=== PATIENT | male | born 1950 ===

== ENCOUNTER 2021-04-07 10:07 | Inpatient (IN) ==
[2021-04-07] MEDS ORDERED: ONDANSETRON INJ 2 MG/ML 2 ML VIAL IV STA (10:31)
[2021-04-07] MEDS ORDERED: MoRPHine SULFATE 4 MG/ML 1 ML CARP\\VIAL IV STA (10:31)
--- NOTE | 2021-04-07 10:40 | Emergency Department Note ---
History of Present Illness General Chief complaint: Dehydration Stated complaint: DEHYDRATION,DIARRHEA,VOMITING,LARGE MASS RT SIDE Time Seen by Provider: 04/07/21 10:15 Source: patient History of Present Illness Provider complaint: Chest pain Onset (ago): month(s) 4 Location: chest Radiation: other (Both shoulders) Pain Consistency: + constant Maximum Pain Intensity: 10 Quality: + other (Throbbing) Relieved By: + none Exacerbated By: + other (Palpation) Associated symptoms: + nausea/vomiting and + shortness of breath; no cough and no fever/chills This is a 70-year-old male with a prior history of throat cancer 15 years ago presenting with chest pain. He describes the pain as a throbbing sensation in the right side of his chest rating to both shoulders. He states that he has had a mass develop on his chest wall 4 months ago and that is when his pain started. He started getting short of breath 3 months ago. He saw his doctor who scheduled him for a CAT scan next week. He has not had any additional work-up. He rates his pain a 10 out of 10 in severity. He states is worse when he touches it. He states for the past week he has not been able to eat food. He states that whenever he tries to eat he throws up. He does state that he only eats pured foods since his throat cancer 15 years ago. He denies any fever, cough or cold symptoms, abdominal pain, diarrhea or urinary symptoms. He has not had the Covid vaccine. Home Medications Medication Instructions Recorded Confirmed Type lisinopril 10 mg PO QAM 04/07/21 04/07/21 History Allergies Allergy/AdvReac Type Severity Reaction Status Date / Time No Known Allergies Allergy Unverified 04/07/21 13:59 Past Med/Surg History Medical History Throat cancer Social History Smoking Status: Never smoker Preferred Language: Cook Islander Feels Safe at Home: Yes Review of Systems See HPI for pertinent positives & negatives. and A total of 10 systems reviewed and were otherwise negative Physical Exam Vital Signs Vital Signs - 24 hr 04/07/21 10:08 04/07/21 12:00 Temperature 36.8 C Temperature Source Temporal Artery Scan Pulse Rate 90 Pulse Rate [Right Finger] 76 Respiratory Rate 18 18 Blood Pressure 136/87 Blood Pressure [Right Arm] 124/70 Blood Pressure Mean 103 Blood Pressure Mean [Right Arm] 88 Blood Pressure Position Sitting Pulse Oximetry 100 100 Oxygen Delivery Method Room Air Room Air Sepsis Recent Fever Within 48 Hours No Sepsis New/Unexplained Change in Mental Status No Sepsis Action Taken by Nursing No Action Required Constitutional: Vital signs reviewed. Eyes: Pupils are equal round reactive to light. Conjunctiva are noninjected. ENT: Pharynx is clear without erythema or exudate. Mucous membranes are moist. Neck supple without meningeal signs. Respiratory: Clear to auscultation bilaterally. Breath sounds are equal bilaterally. Cardiovascular: Regular rate and rhythm. No rubs or gallops. GI: Soft, nondistended and nontender. Bowel sounds are present. Musculoskeletal: No peripheral edema. No lower extremity tenderness. [place]-siz ed mass over the right superior chest wall with tenderness to palpation. No fluctuance. Integumentary: No cyanosis. or jaundice. Neurological: The patient is awake and alert. No focal deficits. Hypophonic. Psychiatric: Normal affect. Not anxious appearing. Course Administered Medications Sodium Chloride (Nss) 500 mls @ 125 mls/hr IV .Q4H CESILIA Stop: 05/07/21 10:44 Last Admin: 04/07/21 11:21 Dose: 125 mls/hr Documented by: [id number] Discontinued Medications Lorazepam (Ativan) 0.5 mg in 1 mls @ 1 mls/min IV NOW STA Stop: 04/07/21 11:49 Last Admin: 04/07/21 12:01 Dose: 1 mls/min Documented by: [id number] Morphine Sulfate (Morphine Sulfate 4 Mg/Ml 1 Ml Carp\Vial) 4 mg IV NOW STA Stop: 04/07/21 10:32 Last Admin: 04/07/21 11:21 Dose: 4 mg Documented by: [id number] Ondansetron HCl (Ondansetron Inj 2 Mg/Ml 2 Ml Vial) 4 mg IV NOW STA Stop: 04/07/21 10:32 Last Admin: 04/07/21 11:21 Dose: 4 mg Documented by: [id number] Medical Decision Making Differential Diagnosis Cancer, metastatic disease, mediastinitis, pulmonary embolism, bowel obstruction, dehydration Medical Records Attestation: I reviewed the patient's medical records. I did perform a limited focused review of portions of the patient's old chart on the electronic medical record. The patient has had no recent pertinent visits to this hospital. Home Medications Current Medication List: was personally reviewed by me Laboratory Data Attestation: I reviewed the patient's lab results. Result diagrams: 04/07/21 10:50 04/07/21 10:50 Lab Results 04/07/21 04/07/21 04/07/21 Range/Units 10:50 10:50 13:40 WBC 10.49 (4.8-10.8) K/uL RBC 3.52 L (4.7-6.1) M/uL Hgb 11.6 L (14.0-18.0) g/dL Hct 34.8 L (42-52) % MCV 98.9 (80-100) fL MCH 33.0 (25-34) pg MCHC 33.3 (32-36) g/dL RDW Std Deviation 48.4 H (36.4-46.3) fL RDW Coeff of [place] 13.6 (11.5-14.5) % Plt Count 344 (130-400) K/uL MPV 9.5 (7.4-10.4) fL Immature Gran % (Auto) 0.1 % Neut % (Auto) 89.4 % Lymph % (Auto) 6.1 % [place]ander % (Auto) 4.4 % Eos % (Auto) 0.0 % Baso % (Auto) 0.0 % Neut # (Auto) 9.38 H (1.4-6.5) K/uL Lymph # (Auto) 0.64 L (1.2-3.4) K/uL Lander # (Auto) 0.46 (0.11-0.59) K/uL Eos # (Auto) 0.00 (0-0.5) K/uL Baso # (Auto) 0.00 (0-0.2) K/uL Immature Gran # (Auto) 0.01 (0.00-0.02) K/uL Sodium 140 (136-145) mmol/L Potassium 4.0 (3.5-5.1) mmol/L Chloride 102 (98-107) mmol/L Carbon Dioxide 30 (21-32) mmol/L Anion Gap 8.0 (3-11) BUN 24 H (7-18) mg/dl Creatinine 1.15 (0.6-1.4) mg/dl Est Cr Clr Drug Dosing Not Reportable Est GFR ( Amer) 75.4 ml/min Est GFR (Non-Af Amer) 65.0 ml/min BUN/Creatinine Ratio 21.1 H (10-20) Glucose 115 H (70-99) mg/dl Calcium 11.4 H (8.5-10.1) mg/dl Total Bilirubin 0.7 (0.2-1) mg/dl AST 21 (15-37) U/L ALT 10 L (12-78) U/L Alkaline Phosphatase 109 (45-117) U/L Troponin I < 0.015 (0-0.045) ng/ml Total Protein 7.5 (6.4-8.2) gm/dl Albumin 3.3 L (3.4-5.0) gm/dl Globulin 4.2 H (2.5-4.0) gm/dl Albumin/Globulin Ratio 0.8 L (0.9-2) Lipase 146 (73-393) U/L COVID-19 Eval Order Covid19 at [facility] Imaging Data Radiologist's Impression: Abdomen/Pelvis CT 04/07/21 10:31 CT OF THE ABDOMEN AND PELVIS WITHOUT CONTRAST CLINICAL HISTORY: Vomiting. Evaluate for obstruction. COMPARISON STUDY: No previous studies for comparison. TECHNIQUE: Axial images of the abdomen and pelvis were obtained without IV contrast. Images were reviewed in the axial, sagittal, and coronal planes. Automated exposure control was utilized for the study. A dose lowering technique was utilized adhering to the principles of ALARA. FINDINGS: Please note that the chest CT will be reported separately. A small left pleural effusion is noted. A small pericardial effusion is also present. Gastrostomy tube is in place. No pneumatosis, free air or portal venous gas is present. Evaluation of the abdomen and pelvis is significantly compromised given lack of contrast and posterior intra-abdominal fat. There is no evidence for a bowel obstruction. There is a large amount stool within the colon and rectum. Unenhanced images of the liver, spleen, adrenal glands, kidneys and pancreas are grossly unremarkable. There is no hydronephrosis. No lymphadenopathy is identified although sensitivity is diminished. Bladder is distended. IMPRESSION: 1. Exam significantly compromised given lack of contrast and paucity of intra- abdominal fat. 2. No bowel obstruction. Large amount of stool within the colon and rectum. 3. Small pericardial effusion. Small left pleural effusion. ACT 112: Negative or not required by law. Electronically signed by: Gurinder Velez M.D. 04/07/2021 12:[address] 04/07/21 10:31 CT OF THE CHEST WITHOUT IV CONTRAST CLINICAL HISTORY: Chest pain. COMPARISON STUDY: No previous studies for comparison. CT DOSE: 607.67 mGy.cm TECHNIQUE: Axial images of the chest were obtained without IV contrast. Images were reviewed in the axial, sagittal, and coronal planes. IV contrast was not administered for this examination. Automated exposure control was utilized for the study. A dose lowering technique was utilized adhering to the principles of ALARA. FINDINGS: Evaluation of the chest is suboptimal on this unenhanced exam. Note is made of a large infiltrative destructive mass centered within the anterior right upper chest wall. This results in erosion of the manubrium, undersurface of the proximal right clavicle, the anterior right second rib as well as the ant erior right first rib. This contains multiple radiodensities. This extends into the mediastinum as well as the right upper lobe. There is right upper lobe volume loss. This mass measures approximately 9.8 x 6.5 x 6 cm. There may be trace gas within the SVC. Size of the heart is normal. There is no pneumothorax. A small left pleural effusion is noted. Note is made of a spiculated 1.4 x 1.1 cm right middle lobe nodule. There is also an irregular 3.5 x 3.1 cm left upper lobe mass which extends to the pleura. This contains calcifications. There are tiny nodules within the right middle lobe as well as the left lower lobe. The abdomen and pelvis will be reported separately. IMPRESSION: 1. Large destructive infiltrative mass centered within the anterior right upper chest wall which results in erosion of the manubrium, undersurface of the pro ximal right clavicle and the anterior right first and second ribs. This extends into the right upper lobe and invades the mediastinum. This is consistent with a neoplasm and may reflect a lung malignancy invading the chest wall. A chondrosarcoma is also within the differential given the CT appearance. Tissue sampling is recommended. 2. Irregular 3.5 x 3.1 cm left upper lobe mass. The appearance favors a primary lung malignancy although metastatic disease could appear similar. 3. Spiculated 1.4 cm right middle lobe nodule also consistent with a neoplastic process. 4. Small left pleural effusion. 5. Bilateral upper lobe volume loss. ACT 112: Negative or not required by law. Electronically signed by: Gurinder Velez M.D. 04/07/2021 12:36 PM ECG Data Indication: + chest pain Rate (beats per minute): 83 Rhythm: + normal sinus ECG ST segments: no ST elevation ECG Findings: no PVCs MDM Narrative I did evaluate the patient as noted above. The patient is presenting with pain to his chest for 4 months with shortness of breath and a growing mass to his chest wall. He also states that he has not been able to eat for the past week due to vomiting. He has lost a significant amount of weight. Family is very cachectic and in obvious masses on his right chest wall. IV access was established. I did treat him with IV morphine and Zofran. I also started him on normal saline IV. I did place an order for continuous cardiac monitoring. The monitor showed normal sinus rhythm at a rate of 78 bpm. I did order and personally review the patient's 12-lead EKG as described above. He has no acute ischemic changes. I did order and review the patient's blood work as noted in the electronic medical record. His white count is not elevated. He is anemic with a hemoglobin 11.6. Platelet count is within normal limits. Electrolytes, LFTs, lipase and troponin are unremarkable except for a elevated calcium.. I did order a CT of the chest, abdomen and pelvis. I did review the images myself as well as the radiology report as described above. The patient has a large erosive mass to the chest wall invading the mediastinum as well as the right upper lobe. He also has a mass in the right middle lobe and left upper lobe. I did discuss the test results with the patient and his brother. He will be hospitalized for further care and evaluation. I did discuss the case with the hospitalist and case sealer. Impression & Plan Mass of right lung, Dehydration, Mass of left lung, Chest wall mass, Vomiting, Anemia, Hypercalcemia Discharge Plan Visit Data Chief Complaint: Dehydration Stated Complaint: DEHYDRATION,DIARRHEA,VOMITING,LARGE MASS RT SIDE ED Provider: J Luis Carrillo Discharge Problem: Mass of right lung, Dehydration, Mass of left lung, Chest wall mass, Vomiting, Anemia, Hypercalcemia Patient Disposition: Being Evaluated by Hospitalist Forms Stand Alone Forms: [facility] Prescriptions Prescriptions: No Action lisinopril 10 mg tablet 10 mg PO QAM RF: 0 Referrals Referrals: Dylan Segura M.D. [Primary Care Provider] -
[2021-04-07 10:57] LABS: Hematocrit (blood only) 34.8 % (42-52); Hemoglobin 11.6 g/dL (14.0-18.0); Immature Granulocytes # (auto) 0.01 K/uL (0.00-0.02); Immature Granulocytes % (auto) 0.1 %; Lymphocytes # (auto) 0.64 K/uL (1.2-3.4); Lymphocytes % (auto) 6.1 %; Mean Corpuscular Hgb Conc 33.3 g/dL (32-36); Mean Corpuscular Volume 98.9 fL (80-100); Mean Platelet Volume 9.5 fL (7.4-10.4); Monocytes # (auto) 0.46 K/uL (0.11-0.59); Monocytes % (auto) 4.4 %; Neutrophils # (auto) 9.38 K/uL (1.4-6.5); Neutrophils % (auto) 89.4 %; Platelet Count 344 K/uL (130-400); RDW Coefficient of Variation 13.6 % (11.5-14.5); RDW Standard Deviation 48.4 fL (36.4-46.3); Red Blood Count 3.52 M/uL (4.7-6.1); White Blood Count 10.49 K/uL (4.8-10.8)
[2021-04-07 11:14] LABS: Albumin Level 3.3 gm/dl (3.4-5.0); BUN Creatinine Ratio 21.1 (10-20); Blood Urea Nitrogen 24 mg/dl (7-18); Calcium 11.4 mg/dl (8.5-10.1); Carbon Dioxide 30 mmol/L (21-32); Chloride 102 mmol/L (98-107); Est GFR (African American) 75.4 ml/min; Glucose 115 mg/dl (70-99); Sodium 140 mmol/L (136-145)
[2021-04-07 11:20] LABS: Alanine Aminotransferase 10 U/L (12-78); Albumin Globulin Ratio 0.8 (0.9-2); Alkaline Phosphatase 109 U/L (45-117); Aspartate Aminotransferase 21 U/L (15-37); Bilirubin,Total 0.7 mg/dl (0.2-1); Globulin 4.2 gm/dl (2.5-4.0); Lipase 146 U/L (73-393); Total Protein 7.5 gm/dl (6.4-8.2); Troponin I < 0.015 ng/ml (0-0.045)
[2021-04-07] MEDS: SODIUM CHLORIDE 0.9% 500 ML IV SCH ×2 (11:21→16:51)
[2021-04-07] MEDS ORDERED: LORazepam 0.5 MG/1 ML VIAL IV STA (11:48)
--- NOTE | 2021-04-07 12:38 | CT Scan Report ---
CT OF THE CHEST WITHOUT IV CONTRAST CLINICAL HISTORY: Chest pain. COMPARISON STUDY: No previous studies for comparison. CT DOSE: 607.67 mGy.cm TECHNIQUE: Axial images of the chest were obtained without IV contrast. Images were reviewed in the axial, sagittal, and coronal planes. IV contrast was not administered for this examination. Automat ed exposure control was utilized for the study. A dose lowering technique was utilized adhering to t he principles of ALARA. FINDINGS: Evaluation of the chest is suboptimal on this unenhanced exam. Note is made of a large inf iltrative destructive mass centered within the anterior right upper chest wall. This results in erosi on of the manubrium, undersurface of the proximal right clavicle, the anterior right second rib as we ll as the anterior right first rib. This contains multiple radiodensities. This extends into the medi astinum as well as the right upper lobe. There is right upper lobe volume loss. This mass measures ap proximately 9.8 x 6.5 x 6 cm. There may be trace gas within the SVC. Size of the heart is normal. The re is no pneumothorax. A small left pleural effusion is noted. Note is made of a spiculated 1.4 x 1.1 cm right middle lobe nodule. There is also an irregular 3.5 x 3.1 cm left upper lobe mass which exte nds to the pleura. This contains calcifications. There are tiny nodules within the right middle lobe as well as the left lower lobe. The abdomen and pelvis will be reported separately. IMPRESSION: 1. Large destructive infiltrative mass centered within the anterior right upper chest wall which resu lts in erosion of the manubrium, undersurface of the proximal right clavicle and the anterior right f irst and second ribs. This extends into the right upper lobe and invades the mediastinum. This is con sistent with a neoplasm and may reflect a lung malignancy invading the chest wall. A chondrosarcoma i s also within the differential given the CT appearance. Tissue sampling is recommended. 2. Irregular 3.5 x 3.1 cm left upper lobe mass. The appearance favors a primary lung malignancy altho ugh metastatic disease could appear similar. 3. Spiculated 1.4 cm right middle lobe nodule also consistent with a neoplastic process. 4. Small left pleural effusion. 5. Bilateral upper lobe volume loss. ACT 112: Negative or not required by law. Electronically signed by: Gurinder Velez M.D. 04/07/2021 12:36 PM
--- NOTE | 2021-04-07 12:44 | CT Scan Report ---
CT OF THE ABDOMEN AND PELVIS WITHOUT CONTRAST CLINICAL HISTORY: Vomiting. Evaluate for obstruction. COMPARISON STUDY: No previous studies for comparison. TECHNIQUE: Axial images of the abdomen and pelvis were obtained without IV contrast. Images were revi ewed in the axial, sagittal, and coronal planes. Automated exposure control was utilized for the [place]. A dose lowering technique was utilized adhering to the principles of ALARA. FINDINGS: Please note that the chest CT will be reported separately. A small left pleural effusion is noted. A small pericardial effusion is also present. Gastrostomy tube is in place. No pneumatosis, f ree air or portal venous gas is present. Evaluation of the abdomen and pelvis is significantly compro mised given lack of contrast and posterior intra-abdominal fat. There is no evidence for a bowel obst ruction. There is a large amount stool within the colon and rectum. Unenhanced images of the liver, spleen, adrenal glands, kidneys and pancreas are grossly unremarkable. There is no hydronephrosis. No lymphadenopathy is identified although sensitivity is diminished. Bladder is distended. IMPRESSION: 1. Exam significantly compromised given lack of contrast and paucity of intra-abdominal fat. 2. No bowel obstruction. Large amount of stool within the colon and rectum. 3. Small pericardial effusion. Small left pleural effusion. ACT 112: Negative or not required by law. Electronically signed by: Gurinder Velez M.D. 04/07/2021 12:42 PM
--- NOTE | 2021-04-07 16:18 | History & Physical Report ---
Date of Service April 07, 2021 Assessment & Plan (1) Chest wall mass: Malignantquestion will be whether or not it is a recurrence of his prior throat cancer, versus a different primary malignancy. Either way the overall appearance is extremely worrisome prognostically. Discussed this with the patient frankly and openly. He is well aware that it may be something not very amenable to treatment. CT chest, abdomen, pelvis have been done. Will get CT head. Discussed the need for a PET scan. And will ask radiology to try to get an ultrasound-guided biopsy of the mass tomorrow. -Given his overall lack of being very plugged in with the medical community, I will ask hematology/oncology to see him here mostly to try to pipeline/facilitate further work-up and/or treatment he may need as an outpatient -We will ask radiation oncology to see him here, given the erosion of the mass into his sternum, as well as his significant pain, that radiation treatment may be of benefit (2) Anemia: Follow, likely relates to malnutrition and overall clinical situation (3) Hypercalcemia: Almost certainly from bony erosion. Follow-up. Check PTH for completeness. Does not really appear symptomatic from this, managed simply with IV fluids for now. (4) Dehydration: IV fluids, see below under malnutrition otherwise (5) Malnutrition: His PEG tube site has been in place for about 15 or 16 years, and so hopefully the tract is still viable for use. Will need some help from gastroenterology on getting it functioning again/probably replacing the tube and removing the bolt. And then he appears to be at least some risk for refeeding syndrome as we start tube feeds. Consult dietitian (6) Throat cancer: See above, the main concern of course would be a recurrence of his primary throat cancer, although other primary tumor certainly would be possible (7) DVT prophylaxis: Lovenox (8) Discharge planning issues: PT/OT eval and treat Admit to medical under the medicine and the hospitalist service He seemed a bit conflicted in considering his CODE STATUS, and I suspect fairly soon he would want to be a DNR, but when asking what to put in the chart at time of admission, he wanted to be a full code Discussed with him and his brother the basics of starting to have end-of-life type discussions and decision making. While it does not appear that he has formal power of ip attorney paperwork, the patient noted he would like his 2 brothers to be his decision makers if he was unable to decide for himself History of Present Illness Chief Complaint: Chest wall pain, inability to swallow, weakness Primary Care Provider: Dylan Segura Patient is a very pleasant 70-year-old male who notes that he was in a good baseline state of health for quite a long time, until about the last 4 months. He started with a little bit of a lump on his chest wall, was paying attention to it but felt like it would probably go away, unfortunately it continued to grow. During that time he started to lose the ability to swallow, started losing weight (he was not really able to quantify exactly how much but it seems like a lot) and had progressively more pain. Finally over the last week or so, with an amalgamation of worsening pain, worsening failure to thrive/weakness, and growth of the mass, his brother was able to convince him to bring the issue up with his PCPwho ordered a CT scan. In between then and now, the patient's pain worsened and his ability to take care of himself at home worsened as welland they came to the ER. Here he was found to have worrisome findings on CT of a large mass eroding into his sternum, as well as several other (presu mably satellite) lesions. He notes about 15 or 16 years ago he was diagnosed with tongue cancerthis was actually managed successfully with radiation and chemo at [facility]. During that time he had a PEG tube placed, and actually this year he was finally planning on getting around to having GI remove the PEG tube as he has not used it in years (it was leaking, and the tube had broken, and so he actually has it plugged with a rather large bolt). 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 He notes, however, that he is much weaker and frailer than when he went through cancer treatment before. He also notes he absolutely never smoked or chewed. As far as past medical history, he relates hypertensionand is on one medicine, although he was not quite sure what it was. He also notes that recently his PCP started him on liquid pain medicine, which he thought was probably oxycodone. I called his pharmacy to confirmhe is listed as being on 10 mg of lisinopril daily, 50 mg of atenolol daily, and oxycodone 5 mg every 6 hours as needed pain. Allergies Allergy/AdvReac Type Severity Reaction Status Date / Time No Known Allergies Allergy Unverified 04/07/21 13:59 Home Medications Medication Instructions Recorded Confirmed Type lisinopril 10 mg PO QAM 04/07/21 04/07/21 History Past Med/Surg History Medical History Throat cancer Family History Other Diabetes Social History Smoking Status: Never smoker Preferred Language: Upper Sorbian Feels Safe at Home: Yes Review of Systems Review of Systems: All systems reviewed & are unremarkable except as noted in HPI & below Physical Exam Physical Exam: In general he is awake and alert pleasant no distress. He is very thin to cachectic appearing. HEENT normocephalic atraumatic mucous membranes somewhat dry. Cardio is regular without rubs murmurs or gallops. Lungs clear to auscultation bilaterally no rales rhonchi wheezes good effort. Abdomen is soft but scaphoid. There is a PEG tube site in place, with about a 3 inch bolt sticking out plugging the hole. No tenderness, no guarding, no rebound, no rigidity. Extremities show no cyanosis clubbing or edema (he notes a little bit of puffiness of the skin, although this is not manifest as clinically palpable edema). Musculoskeletal exam shows a degree of muscle wastingparticularly given how he describes himself before the last 4 months. There is a large probably 4 inch x 4 inch diameter oval quite palpable anterior chest wall mass. He also has a lot of telangiectasia and varicosities across his anterior chest wall. Skin shows those above findings, but no rashes, pallor, icterus. Neuro shows cranial nerves II through XII be grossly intact gross motor and sensory are intact. Mental status shows good recent and remote recall normal mood and affect good judgment and insight. Results & Data Results & Data ([facility]) Vital Signs (Past 12 Hours) Vital Signs Temp Pulse Pulse Resp BP BP Pulse Ox 04/07/21 15:00 78 14 122/74 98 04/07/21 12:00 76 18 124/70 100 04/07/21 10:08 98.2 F 90 18 136/87 100 PG Care Time/CCT Total # of Minutes Spent Total Time Spent with Patient: Total time spent is greater than 50% in coordination of care (as documented) at patient's floor/unit and/or counseling patient: Coding Level of Care Code 94031 Initial Inpt Care Lvl 3 Diagnoses Chest wall mass R22.2 Anemia D64.9 Anemia type: unspecified type Hypercalcemia E83.52 Dehydration E86.0 Malnutrition E46 Throat cancer C14.0 DVT prophylaxis Z29.9 Discharge planning issues Z02.9 (1) Anemia Anemia type: unspecified type Qualified Code(s): D64.9 - Anemia, unspecified
[2021-04-07] MEDS ORDERED: ONDANSETRON INJ 2 MG/ML 2 ML VIAL IV PRN (18:17)
[2021-04-07] MEDS ORDERED: MoRPHine SULFATE 5 MG/0.25 ML UDP PO PRN (18:17)
[2021-04-07] MEDS ORDERED: PATIENT'S WEIGHT NEEDED SCH (19:00)
[2021-04-07] MEDS: MoRPHine SULFATE 4 MG/ML 1 ML CARP\\VIAL IV PRN (20:19)
[2021-04-07] MEDS: D5W AND 1/2NSS + 20MEQ KCL 20 MEQ/1,000 ML BAG IV SCH (20:20)
[2021-04-07] MEDS: ENOXAPARIN INJ 30 MG/0.3 ML SYR SQ SCH (20:53)
[2021-04-07] MEDS ORDERED: POLYETHYLENE (MIRALAX) 17 GM PACK PO ONE (23:45)
[2021-04-08] MEDS: D5W AND 1/2NSS + 20MEQ KCL 20 MEQ/1,000 ML BAG IV SCH ×3 (05:51→20:36)
[2021-04-08 07:10] LABS: Eosinophils # (auto) 0.01 K/uL (0-0.5); Eosinophils % (auto) 0.1 %; Hematocrit (blood only) 31.6 % (42-52); Hemoglobin 10.3 g/dL (14.0-18.0); Immature Granulocytes # (auto) 0.02 K/uL (0.00-0.02); Immature Granulocytes % (auto) 0.2 %; Lymphocytes # (auto) 0.85 K/uL (1.2-3.4); Lymphocytes % (auto) 10.2 %; Mean Corpuscular Hemoglobin 31.7 pg (25-34); Mean Corpuscular Hgb Conc 32.6 g/dL (32-36); Mean Corpuscular Volume 97.2 fL (80-100); Mean Platelet Volume 9.8 fL (7.4-10.4); Neutrophils # (auto) 6.93 K/uL (1.4-6.5); Neutrophils % (auto) 83.5 %; Platelet Count 304 K/uL (130-400); RDW Coefficient of Variation 13.5 % (11.5-14.5); Red Blood Count 3.25 M/uL (4.7-6.1); White Blood Count 8.31 K/uL (4.8-10.8)
[2021-04-08 07:49] LABS: Calcium 10.2 mg/dl (8.5-10.1); Creatinine Clr Calc Pharmacy 49.1 ml/min; Est GFR (African American) 92.6 ml/min; Est GFR (Non-African American) 79.9 ml/min; Potassium 3.5 mmol/L (3.5-5.1)
--- NOTE | 2021-04-08 09:21 | Radiation OncologyConsultation ---
Date of Consultation April 08, 2021 Assessment & Plan (1) Throat cancer: (2) Chest wall mass: Assessment: Mr. 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 The patient was admitted to the hospital due to pain control and further work-up and evaluation. The patient's pain is much more well controlled since he has been admitted to the hospital. I am now seeing the patient in consultation to discuss the role of radiation therapy. Recommendations: 1. Obtain tissue diagnosis. Given the long interval between head and neck cancer and new presentation of right anterior chest wall mass with pulmonary metastasis, tissue diagnosis should be pursued for confirmation of primary malignancy as well as information for medical oncology. Given presentation, it feels unlikely that this is a recurrent head and neck cancer given the fact the patient has no new head and neck symptoms at this point as well as the interval from the initial diagnosis and treatment. 2. Anticipate palliative radiation therapy to right chest wall mass. Even if patient does get diagnosed with new primary malignancy including chondrosarcoma, patient should be considered for palliative external beam radiation therapy unless medical oncology does feel comfortable with initiating systemic therapy with goal of palliation of symptoms. I will confirm this plan with medical oncology. Of note, previous radiation therapy dosimetry records will need to be obtained given the fact that there is a high likelihood for overlap from previous course of radiation therapy from head and neck cancer. Plan: 1. Tissue diagnosis. As per primary medical team. Consider biopsying right anterior chest wall mass. 2. CT simulation for tentative treatment planning. We will need to confirm tissue diagnosis prior to starting radiation therapy. We will also need to confirm the plan with medical oncology. Continue patient on pain management plan as per primary medical team. Prior dosimetry will also need to be obtained if possible. 3. Medical oncology consultation input appreciated. 4. Palliative care consultation should be considered. 5. Patient and family encouraged to call us with any further questions or concerns. Rationale/Explanation of Treatment: I explained the indications, alternatives, benefits, risks and side effects of external beam radiation therapy. I then discussed radiation therapy side effects for treatment which include, but are not limited to, skin erythema, dry/moist desquamation of the skin, hyperpigmentation, telangiectasias, damage to the heart and development of cardiovascular disease, damage to the lungs including radiation pneumonitis, pulmonary fibrosis, decrease in pulmonary function, cough, fistula formation, tracheal stenosis, esophageal stenosis, esophageal perforation, dysphagia, n ausea, vomiting, ulcers in stomach/bowel, gastritis, gastric perforation, bowel perforation, bowel obstruction, weight loss, dehydration, decreased appetite, liver damage including hepatitis and liver failure, damage to the kidneys including decreased renal function and renal failure, spinal cord damage including myelopathy, fatigue and secondary malignancy. I have explained the indications, alternatives, benefits, risks and side effects of radiation therapy. I have explained the most common side effects including but are not limited to skin erythema, skin break down, hair loss, fibrosis, adh esion development, heart failure and heart disease, esophagitis, esophageal stenosis, bowel obstruction, urinary symptoms, thyroid disorders, mucositis, nausea, vomiting, diarrhea, anemia, fatigue, carotid artery stenosis and development of secondary malignancy. Additionally, patients suffer may have xerostomia, stomatitis, glossitis, dysphagia, aspiration, mandibular osteoradionecrosis, mucocutaneous fistula formation, lymphedema in the neck, pharyngeal edema, mucositis, loss of taste. I have explained the CT simulation process and treatment planning. I explained what to expect before, during and after treatment on a regular basis. The patient understands and would be willing to consent to treatment. I have explained to the patient that there is an increased risk of overlap from the previous course of radiation therapy and the current course of radiation therapy which can increase the risk of all acute and late side effects of radiation therapy. The patient had multiple questions which were answered to his full satisfaction. Thank you for allowing us to participate in the care of this patient. This chart was completed in part utilizing [employer] Speech Voice Recognition software. Attempts were made to minimize the grammatical errors, random word insertions, pronoun errors and incomplete sentences. Any formal questions or concerns about the content, text or information contained within the body of this dictation should be directly addressed to the provider for clarification. Eliecer Lopez MD Department of Radiation Oncology [facility] History of Present Illness Attending Physician: Magalis Johnson MD History of Present Illness 15 years ago. Diagnosed with locally advanced head/neck cancer treatment. Treat chemotherapy and radiation therapy at [facility]. Patient has had chronic complications including dysphagia. Patient has adjusted his diet to accommodate difficulty swallowing. 4 months ago. Patient slowly developed right anterior chest wall mass. 1 month ago. Patient started to loose significant weight loss. 04/07/2021. Patient presents to emergency room due to significant chest pain. Patient admitted to hospital for further work-up and evaluation. 04/07/2021. CT of chest. IMPRESSION: 1. Large destructive infiltrative mass centered within the anterior right upper chest wall which results in erosion of the manubrium, undersurface of the proximal right clavicle and the anterior right first and second ribs. This extends into the right upper lobe and invades the mediastinum. This is consistent with a neoplasm and may reflect a lung malignancy invading the chest wall. A chondrosarcoma is also within the differential given the CT appearance. Tissue sampling is recommended. 2. Irregular 3.5 x 3.1 cm left upper lobe mass. The appearance favors a primary lung malignancy although metastatic disease could appear similar. 3. Spiculated 1.4 cm right middle lobe nodule also consistent with a neoplastic process. 4. Small left pleural effusion. 5. Bilateral upper lobe volume loss. 04/07/2021. CT of abdomen/pelvis. IMPRESSION: 1. Exam significantly compromised given lack of contrast and paucity of intra-abdominal fat. 2. No bowel obstruction. Large amount of stool within the colon and rectum. 3. Small pericardial effusion. Small left pleural effusion. Allergies Allergy/AdvReac Type Severity Reaction Status Date / Time No Known Allergies Allergy Unverified 04/07/21 13:59 Home Medications Medication Instructions Recorded Confirmed Type lisinopril 10 mg PO QAM 04/07/21 04/07/21 History Patient History Medical History Throat cancer Family History Other Diabetes Social History Smoking Status: Never smoker Second Hand Exposure: No; Do You Dip or Chew Tobacco: No; Hx Alcohol Use: No Hx Substance Use: No Preferred Language: Czech Core Filer Required: No Beliefs That Will Affect Care: None Current Living Situation: Alone Other Information That Helps Us Care for You: No Feels Safe at Home: Yes Safety Concerns: Feels Safe At This Time Assistive Devices: None Review of Systems Review of Systems: All systems reviewed & are unremarkable except as noted in HPI & below Patient states his pain is significantly improved since he was admitted to the hospital.
--- NOTE | 2021-04-08 09:25 | Hospitalist Progress Note ---
Date of Service April 08, 2021 Assessment & Plan (1) Chest wall mass: Malignantquestion will be whether or not it is a recurrence of his prior throat cancer (15-16 yrs ago s/p chemo/XRT [place]), versus a different primary malignancy. Either way the overall appearance is extremely worrisome prognostically. Discussed this with the patient frankly and openly. He is well aware that it may be something not very amenable to treatment. CT chest * 1. Large destructive infiltrative mass centered within the anterior right upper chest wall which results in erosion of the manubrium, undersurface of the proximal right clavicle and the anterior right first and second ribs. This extends into the right upper lobe and invades the mediastinum. This is consistent with a neoplasm and may reflect a lung malignancy invading the chest wall. A chondrosarcoma is also within the differential given the CT appearance. Tissue sampling is recommended. * 2. Irregular 3.5 x 3.1 cm left upper lobe mass. The appearance favors a primary lung malignancy although metastatic disease could appear similar. * 3. Spiculated 1.4 cm right middle lobe nodule also consistent with a neoplastic process. * 4. Small left pleural effusion. * 5. Bilateral upper lobe volume loss. CTA/P suboptimal and no use of contrast. No obstruction, stool noted. (miralax prn, dulcolax [place] prn) No CT Head obtained. Did have discussion about outpatient PET scan Oncology consulted -- need for FNA. Can trial pamidronate for hypercalcemia GI consulted -- does not want another feeding tube/replacement of PEG currently Asked radiation to perform FNA today to help determine course of treatment Process Control Technician on consult for nutritional assessment -- ordered Thiamine IV to help avoid refeeding syndrome. Also ordered Cerovite (patient unable to tolerate...very sensitive mucosa but without evidence of thrush on examination) Mag wnl Phos 2.4-- ordered IV replacement given pureed diet/difficulty with PO intake Continue to monitor (2) Anemia: Normocytic- likely relates to malnutrition and overall clinical situation Hgb 11.6--> 10.3 but has been on continuous IVF Will add iron studies/B12/folate to am labs CBC in AM (3) Hypercalcemia: Almost certainly from bony erosion. Ca improving --> 10.2 from 11.4. PTH <6.7 Continue on IVF D5 1/2NSS but added 20meq KCl Lasix 10mg IV x 1 to help with hypercalcemia/pain Morphine prn pain Will check Vit D as well for completeness but suspect hypercalcemia of malignancy Monitor in AM (4) Dehydration: IV fluids, see below under malnutrition otherwise (5) Malnutrition: His PEG tube site has been in place for about 15 or 16 years, and so hopefully the tract is still viable for use. Will need some help from gastroenterology on getting it functioning again/probably replacing the tube and removing the bolt. And then he appears to be at least some risk for refeeding syndrome as we start tube feeds. Consult dietitian -- thiamine and supplements ordered today Mag wnl, phos slightly low Monitor in AM (6) Throat cancer: See above, the main concern of course would be a recurrence of his primary throat cancer, although other primary tumor certainly would be possible (7) DVT prophylaxis: Lovenox (8) Discharge planning issues: PT/OT eval and treat He seemed a bit conflicted in considering his CODE STATUS on admission but did voice initially wanting to be a full code Seen by palliative care today --> changed code status to DNR. Service excellence contacts to obtain necessary paperwork for POA Dispo: FNA today by radiology Admission and Anticipated Discharge Date Admission Date: April 07, 2021 Supervising Physician Co-Signing Physician Notes KATIE Supervision Note: I did not personally see or examine the patient today, but I verified all lynn points of KATIE Pham's assessment and plan with the following exceptions/additions: None Subjective Evaluated this morning. Pain was main issue for presentation. Not controlled with liquid codeine syrup. Only maintains pureed diet. Recently on lisinopril and he states he has tried that with applesauce but typically does not take any pills. Hx esophageal ca s/p chemo/radiation 15-16 years ago in [place]. Worked in [employer]. Never smoker/chewing tobacco. States he noticed about 4 months ago that he started to decline. Mass, enlarging to that anterior chest/clavicle and now with back discomfort as well. He remains a full code for now and wants to try chemo/radiation after FNA today but does understand if unable to tolerate treatment as he would like to focus on quality and getting home w brother/seeing grand babies. No fever, chills, chest pain, shortness of breath, increased dysphagia, abdominal pain, nausea, vomiting. Does have PEG tube and not used in years. Afraid for switching out given friend with "laser GB surgery" and "ended up a vegetable". He used superglue several years ago and eventually put "new stainless steel bolt" in to plug this. Weight loss increased. States he weighted himself about 2 months ago and was 108lb (currently 104lb). 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 Awaiting FNA this afternoon and then will coordinate with heme/onc/radiation. Questions/concerns addressed at this time. Review of Systems Review of Systems: All systems reviewed & are unremarkable except as noted in HPI & below Physical Exam Constitutional: + thin, + cachectic, cooperative and comfortable; no acute distress Eyes: + anicteric sclerae and PERRL ENMT: dry mm Neck: trachea midline Respiratory: normal respiratory effort, lungs clear to auscultation Cardiovascular: RRR, no murmur, no edema Chest (Breasts): Additional Comments: right sided anterior chest wall mass, approximately 4inch in diameter, oval, fixed Gastrointestinal (Abdomen): Inspection/Auscultation: normal bowel sounds Percussion/Palpation: abdomen soft (scaphoid); abdomen nontender, no guarding and abdomen not rigid Musculoskeletal: generalized muscle wasting Skin: cool, dry Neurologic: PERRL, EOMI, accommodation nl, no face palsy, no dysarthria Psychiatric: Orientation: alert and oriented x 3 Results & Data Results & Data ([facility]) Vital Signs (Past 12 Hours) Vital Signs Temp Pulse Resp BP Pulse Ox 04/08/21 07:17 36.3 C L 66 16 165/83 H 96 04/07/21 23:00 36.8 C 83 18 152/79 H 100 Laboratory Results 04/08/21 04/08/21 04/08/21 Range/Units 06:02 06:02 06:02 WBC 8.31 (4.8-10.8) K/uL RBC 3.25 L (4.7-6.1) M/uL Hgb 10.3 L (14.0-18.0) g/dL Hct 31.6 L (42-52) % MCV 97.2 (80-100) fL MCH 31.7 (25-34) pg MCHC 32.6 (32-36) g/dL RDW Std Deviation 48.0 H (36.4-46.3) fL RDW Coeff of Hemalatha 13.5 (11.5-14.5) % Plt Count 304 (130-400) K/uL MPV 9.8 (7.4-10.4) fL Immature Gran % (Auto) 0.2 % Neut % (Auto) 83.5 % Lymph % (Auto) 10.2 % [place] % (Auto) 6.0 % Eos % (Auto) 0.1 % Baso % (Auto) 0.0 % Neut # (Auto) 6.93 H (1.4-6.5) K/uL Lymph # (Auto) 0.85 L (1.2-3.4) K/uL [place] # (Auto) 0.50 (0.11-0.59) K/uL Eos # (Auto) 0.01 (0-0.5) K/uL Baso # (Auto) 0.00 (0-0.2) K/uL Immature Gran # (Auto) 0.02 (0.00-0.02) K/uL Sodium 141 (136-145) mmol/L Potassium 3.5 (3.5-5.1) mmol/L Chloride 105 (98-107) mmol/L Carbon Dioxide 29 (21-32) mmol/L Anion Gap 7.0 (3-11) BUN 21 H (7-18) mg/dl Creatinine 0.97 (0.6-1.4) mg/dl Est Cr Clr Drug Dosing 49.1 Est GFR ( Amer) 92.6 ml/min Est GFR (Non-Af Amer) 79.9 ml/min BUN/Creatinine Ratio 22.0 H (10-20) Glucose 118 H (70-99) mg/dl Calcium 10.2 H (8.5-10.1) mg/dl Total Bilirubin (0.2-1) mg/dl AST (15-37) U/L ALT (12-78) U/L Alkaline Phosphatase (45-117) U/L Troponin I (0-0.045) ng/ml Total Protein (6.4-8.2) gm/dl Albumin (3.4-5.0) gm/dl Globulin (2.5-4.0) gm/dl Albumin/Globulin Ratio (0.9-2) Lipase (73-393) U/L PTH Intact Pending COVID-19 Eval Order SARS-CoV-2 (PCR) (Negative) 04/07/21 04/07/21 04/07/21 Range/Units 16:15 13:40 13:40 WBC (4.8-10.8) K/uL RBC (4.7-6.1) M/uL Hgb (14.0-18.0) g/dL Hct (42-52) % MCV (80-100) fL MCH (25-34) pg MCHC (32-36) g/dL RDW Std Deviation (36.4-46.3) fL RDW Coeff of Hemalatha (11.5-14.5) % Plt Count (130-400) K/uL MPV (7.4-10.4) fL Immature Gran % (Auto) % Neut % (Auto) % Lymph % (Auto) % [place] % (Auto) % Eos % (Auto) % Baso % (Auto) % Neut # (Auto) (1.4-6.5) K/uL Lymph # (Auto) (1.2-3.4) K/uL [place] # (Auto) (0.11-0.59) K/uL Eos # (Auto) (0-0.5) K/uL Baso # (Auto) (0-0.2) K/uL Immature Gran # (Auto) (0.00-0.02) K/uL Sodium (136-145) mmol/L Potassium (3.5-5.1) mmol/L Chloride (98-107) mmol/L Carbon Dioxide (21-32) mmol/L Anion Gap (3-11) BUN (7-18) mg/dl Creatinine (0.6-1.4) mg/dl Est Cr Clr Drug Dosing Est GFR ( Amer) ml/min Est GFR (Non-Af Amer) ml/min BUN/Creatinine Ratio (10-20) Glucose (70-99) mg/dl Calcium (8.5-10.1) mg/dl Total Bilirubin (0.2-1) mg/dl AST (15-37) U/L ALT (12-78) U/L Alkaline Phosphatase (45-117) U/L Troponin I (0-0.045) ng/ml Total Protein (6.4-8.2) gm/dl Albumin (3.4-5.0) gm/dl Globulin (2.5-4.0) gm/dl Albumin/Globulin Ratio (0.9-2) Lipase (73-393) U/L PTH Intact Pending COVID-19 Eval Order Covid19 at [facility] SARS-CoV-2 (PCR) NEGATIVE (Negative) 04/07/21 04/07/21 Range/Units 10:50 10:50 WBC 10.49 (4.8-10.8) K/uL RBC 3.52 L (4.7-6.1) M/uL Hgb 11.6 L (14.0-18.0) g/dL Hct 34.8 L (42-52) % MCV 98.9 (80-100) fL MCH 33.0 (25-34) pg MCHC 33.3 (32-36) g/dL RDW Std Deviation 48.4 H (36.4-46.3) fL RDW Coeff of Hemal[place] 13.6 (11.5-14.5) % Plt Count 344 (130-400) K/uL MPV 9.5 (7.4-10.4) fL Immature Gran % (Auto) 0.1 % Neut % (Auto) 89.4 % Lymph % (Auto) 6.1 % [place] % (Auto) 4.4 % Eos % (Auto) 0.0 % Baso % (Auto) 0.0 % Neut # (Auto) 9.38 H (1.4-6.5) K/uL Lymph # (Auto) 0.64 L (1.2-3.4) K/uL [place] # (Auto) 0.46 (0.11-0.59) K/uL Eos # (Auto) 0.00 (0-0.5) K/uL Baso # (Auto) 0.00 (0-0.2) K/uL Immature Gran # (Auto) 0.01 (0.00-0.02) K/uL Sodium 140 (136-145) mmol/L Potassium 4.0 (3.5-5.1) mmol/L Chloride 102 (98-107) mmol/L Carbon Dioxide 30 (21-32) mmol/L Anion Gap 8.0 (3-11) BUN 24 H (7-18) mg/dl Creatinine 1.15 (0.6-1.4) mg/dl Est Cr Clr Drug Dosing Not Reportable Est GFR ( Amer) 75.4 ml/min Est GFR (Non-Af Amer) 65.0 ml/min BUN/Creatinine Ratio 21.1 H (10-20) Glucose 115 H (70-99) mg/dl Calcium 11.4 H (8.5-10.1) mg/dl Total Bilirubin 0.7 (0.2-1) mg/dl AST 21 (15-37) U/L ALT 10 L (12-78) U/L Alkaline Phosphatase 109 (45-117) U/L Troponin I < 0.015 (0-0.045) ng/ml Total Protein 7.5 (6.4-8.2) gm/dl Albumin 3.3 L (3.4-5.0) gm/dl Globulin 4.2 H (2.5-4.0) gm/dl Albumin/Globulin Ratio 0.8 L (0.9-2) Lipase 146 (73-393) U/L PTH Intact COVID-19 Eval Order SARS-CoV-2 (PCR) (Negative) Diagnostic Findings Abdomen/Pelvis CT 04/07/21 10:31 CT OF THE ABDOMEN AND PELVIS WITHOUT CONTRAST CLINICAL HISTORY: Vomiting. Evaluate for obstruction. COMPARISON STUDY: No previous studies for comparison. TECHNIQUE: Axial images of the abdomen and pelvis were obtained without IV contrast. Images were reviewed in the axial, sagittal, and coronal planes. Automated exposure control was utilized for the study. A dose lowering technique was utilized adhering to the principles of ALARA. FINDINGS: Please note that the chest CT will be reported separately. A small left pleural effusion is noted. A small pericardial effusion is also present. Gastrostomy tube is in place. No pneumatosis, free air or portal venous gas is present. Evaluation of the abdomen and pelvis is significantly compromised given lack of contrast and posterior intra-abdominal fat. There is no evidence for a bowel obstruction. There is a large amount stool within the colon and rectum. Unenhanced images of the liver, spleen, adrenal glands, kidneys and pancreas are grossly unremarkable. There is no hydronephrosis. No lymphadenopathy is identified although sensitivity is diminished. Bladder is distended. IMPRESSION: 1. Exam significantly compromised given lack of contrast and paucity of intra- abdominal fat. 2. No bowel obstruction. Large amount of stool within the colon and rectum. 3. Small pericardial effusion. Small left pleural effusion. ACT 112: Negative or not required by law. Electronically signed by: Gurinder Velez M.D. 04/07/2021 12:[address] 04/07/21 10:31 CT OF THE CHEST WITHOUT IV CONTRAST CLINICAL HISTORY: Chest pain. COMPARISON STUDY: No previous studies for comparison. CT DOSE: 607.67 mGy.cm TECHNIQUE: Axial images of the chest were obtained without IV contrast. Images were reviewed in the axial, sagittal, and coronal planes. IV contrast was not administered for this examination. Automated exposure control was utilized for the study. A dose lowering technique was utilized adhering to the principles of ALARA. FINDINGS: Evaluation of the chest is suboptimal on this unenhanced exam. Note is made of a large infiltrative destructive mass centered within the anterior right upper chest wall. This results in erosion of the manubrium, undersurface of the proximal right clavicle, the anterior right second rib as well as the anterior right first rib. This contains multiple radiodensities. This extends into the mediastinum as well as the right upper lobe. There is right upper lobe volume loss. This mass measures approximately 9.8 x 6.5 x 6 cm. There may be trace gas within the SVC. Size of the heart is normal. There is no pneumothorax. A small left pleural effusion is noted. Note is made of a spiculated 1.4 x 1.1 cm right middle lobe nodule. There is also an irregular 3.5 x 3.1 cm left upper lobe mass which extends to the pleura. This contains calcifications. There are tiny nodules within the right middle lobe as well as the left lower lobe. The ab domen and pelvis will be reported separately. IMPRESSION: 1. Large destructive infiltrative mass centered within the anterior right upper chest wall which results in erosion of the manubrium, undersurface of the proximal right clavicle and the anterior right first and second ribs. This extends into the right upper lobe and invades the mediastinum. This is consistent with a neoplasm and may reflect a lung malignancy invading the chest wall. A chondrosarcoma is also within the differential given the CT appearance. Tissue sampling is recommended. 2. Irregular 3.5 x 3.1 cm left upper lobe mass. The appearance favors a primary lung malignancy although metastatic disease could appear similar. 3. Spiculated 1.4 cm right middle lobe nodule also consistent with a neoplastic process. 4. Small left pleural effusion. 5. Bilateral upper lobe volume loss. ACT 112: Negative or not required by law. Electronically signed by: Gurinder Velez M.D. 04/07/2021 12:36 PM Lymph Node Biopsy Ultrasound 04/08/21 00:00 ULTRASOUND-GUIDED FINE-NEEDLE ASPIRATION OF A MANUBRIAL LESION CLINICAL HISTORY: Head and neck cancer. Large manubrial lesion seen by CT. COMPARISON STUDY: Chest CT dated 04/07/2021. PROCEDURE: The risks, benefits, and alternatives to the procedure were discussed with the patient. Written informed consent was obtained. The patient was placed supine in ultrasound, and the large destructive lesion involving the manubrium of the sternum and overlying soft tissue component was localized by ultrasound and selected for fine needle aspiration. The anterior upper chest was prepped and draped in the usual sterile fashion. The lesion was aspirated under ultrasound guidance with 4 passes utilizing 25-gauge needles. Specimens were rev iewed by the pathologist in real-time and deemed adequate for diagnosis. The patient tolerated the procedure well and left the department in satisfactory condition. IMPRESSION: Completed fine-needle aspiration of a large manubrial lesion as above. ACT 112: Negative or not required by law. Electronically signed by: Cyril Mike M.D. 04/08/2021 3:44 PM PG Care Time/CCT Total # of Minutes Spent Total Time Spent with Patient: Total time spent is greater than 50% in coordination of care (as documented) at patient's floor/unit and/or counseling patient: Coding Level of Care Code 01216 Subseq Hosp Care Lvl 3 Diagnoses Chest wall mass R22.2 Anemia D64.9 Anemia type: unspecified type Hypercalcemia E83.52 Dehydration E86.0 Malnutrition E46 Throat cancer C14.0 DVT prophylaxis Z29.9 Discharge planning issues Z02.9 (1) Anemia Anemia type: unspecified type Qualified Code(s): D64.9 - Anemia, unspecified
--- NOTE | 2021-04-08 09:52 | Consultation Report ---
DATE OF CONSULTATION: 04/08/2021 REASON FOR CONSULTATION: Metastatic carcinoma, primary unknown. HISTORY OF PRESENT ILLNESS: The patient is a very pleasant 70-year-old gentleman, looks much older than his stated age, admitted to [facility] yesterday for slow clinical decline basically. He presented with an emerging chest wall lesion, he estimates it has been growing for about 4 months or so. During that time, he started to lose his ability to swallow and obviously lost significant weight. The patient is not sure exactly how much weight. Most certainly and not surprisingly, he has been struggling with pretty significant pain. So, over the past week or so with gross growth of a mass, worsening clinical failure and generalized weakness. The patient's brother prompted him to have him at least see the primary care physician, he ordered CT scan. He got to the point where he could no longer care for himself and thus presented to the Emergency Room. 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 He actually had a PEG tube placed during that time to support himself nutritionally and apparently the tube had broken and had been leaking considerably and the patient surmised a planned and placed an actual metal bolt into the tube entrance, which has been there for god knows how long. His pain seems to be well controlled but he is clearly cachectic, suspect dehydrated and malnourished. He has been admitted to the primary hospitalist service and a CT scan of both the chest, abdomen and pelvis has been performed not surprisingly with disseminated metastatic disease. Most probably within the chest, a large destructive infiltrative mass centered in the anterior right upper chest wall resulting in erosion of the manubrium undersurface of the right proximal clavicle and anterior right first and second ribs extending into the right upper lobe invading the mediastinum. Additionally, there is a 3.5 x 3.1 cm mass in the left upper lobe and a spiculated 1.4 cm right middle lobe consistent with neoplasia within the abdomen and pelvis, there is a large amount of stool within the colon and rectum, but exam is significantly compromised given the lack of contrast and a paucity of intraabdominal fat. I have been asked to visit with the patient to evaluate and treat. Biopsy has yet to be done. Clearly, the mass is protruding enough that pathology could come up and perform FNA without difficulty. PAST MEDICAL HISTORY: Significant for throat cancer, he estimates again about 15 years ago. MEDICATION LIST: Lisinopril 10 mg p.o. daily. ALLERGIES: No known drug allergies. SOCIAL HISTORY: The patient lives alone. He is a nonsmoker, nondrinker, marginal family communication. FAMILY HISTORY: Significant for diabetes mellitus. REVIEW OF SYSTEMS: GENERAL: Negative for fevers, chills or sweats. Positive for anorexia and weight loss. SKIN: No rashes or lesions. No history of dermatoses. HEENT: Negative for headaches, lightheadedness or dizziness. Positive for dysphagia. No sore throat. CARDIAC: Negative for coronary artery disease, no angina or palpitations. PULMONARY: Negative for COPD. He is not short of breath, dyspneic or orthopneic. No cough or hemoptysis. GASTROINTESTINAL: Negative for abdominal pain. Again, the patient has an old feeding tube site plugged by a metal bolt. No diarrhea or constipation, no hematochezia or melena stools. GENITOURINARY: No hematuria, dysuria or urinary incontinence. PSYCHIATRIC: Negative for anxiety, depression or psychoses. ENDOCRINE: Negative for diabetes or thyroid disease. NEUROLOGIC: Negative for seizure, stroke, or migraine headache. MUSCULOSKELETAL: Positive for skeletal bone pain, no arthralgias. Positive for generalized weakness. HEMATOLOGIC: Positive for anemia. PHYSICAL EXAMINATION: GENERAL: A very cachectic, ill-appearing 70-year-old gentleman, awake, alert and appropriate, in no acute distress. VITAL SIGNS: Temperature 36.8, pulse 83, respiratory rate 18, blood pressure 152/79. SKIN: Without rash or lesion. HEAD: Atraumatic, normocephalic. Eyes: PERRLA, EOMI. Sclerae nonicteric. Nares patent without rhinorrhea or discharge. THROAT: No buccal lesions or ulcerations. NECK: Supple. LYMPH: He has an enlarged right upper anterior chest wall mass approximately 7 x 7 cm in size, raised is hyperpigmented. HEART: Regular rate and rhythm. No clicks, rubs, murmurs or gallops. LUNGS: Distant breath sounds heard in all toth. ABDOMEN: Soft, nontender, nondistended. Again, old PEG tube site appears to be no erythema or drainage, metal bolt protruding through the entrance. EXTREMITIES: Musculoskeletal strength and pulses are equal in all 4 quadrants. No clubbing, cyanosis or edema. NEUROLOGICAL: Awake, alert and oriented x3. Cranial nerves are grossly intact. LABORATORY DATA: WBC count 10,490, hemoglobin 11.6, platelet count 344,000. Sodium 140, potassium 4.0, chloride 102, carbon dioxide 30, creatinine 1.15, BUN 24, calcium 11.4, probably slightly higher corrected with albumin, which is 3.3. IMPRESSION: 1. Metastatic carcinoma, primary unknown. 2. Anorexia/weight loss. 3. Skeletal pain due to progressive neoplasia. 3. Protein malnutrition. PLAN: It was my pleasure to visit with patient at bedside this morning. Very clear to me this gentleman really has been followed by medical device in several years. Apparently, he had head and neck cancer 15 years ago, feeding tube was placed and apparently fractured, never was removed. The patient has fashioned a mental bolt as a stopper to prevent leakage. He is quite cachectic and based on CT scan done on admission as considerable disease burden within the chest eroding into the bony skeleton, which I am sure was quite painful. The patient is very comfortable at this time. He expressed desire to be treated and will await a formal biopsy to make recommendations moving forward. Additionally, his nutritional status needs to be dealt with. I would advocate having the PEG tube formally removed perhaps reinserted as he will need nutritional support moving forward. Surprisingly, his albumin is not terribly low. He also has a mild hypercalcemia attributable to malignancy, which could be easily managed with 60 mg of Pamidronate. Continue saline IV and perhaps a low dose loop diuretic. Continue opioid analgesia as needed. Again, I will reconvene with the patient once diagnosis is confirmed. I have nothing further to add. Agree with medical management otherwise. Thank you very much for allowing me to participate in his care.
--- NOTE | 2021-04-08 10:07 | Gastrointestinal Consultation ---
Date of Consultation April 08, 2021 Assessment & Plan (1) PEG tube malfunction: Agree that removal of this tube/bolt is necessary. Patient is obviously malnourished and refeeding certainly is a concern at this point, particularly if he has a new malignancy that will require treatment, however prior to any GI or surgical intervention for new tube, patient makes it clear to me today that he is not interested in using a feeding tube in the future. He reports that he will refuse to use a tube even if one is placed. Goals of care will need to be more clearly established with patient prior to any further recommendations. Supervising Physician Co-Signing Physician Notes Agree with DEVI Oconnell as above Abd: Soft, NT, ND, Metal bolt extending from prior PEG site lumen Patient is not interested in PEG tube at this time, as he states he is eating, and does not plan on wanting a PEG tube in the future if needed. As for the Metal [place] currently residing in the PEG site, I would consider surgery consult for their opinion on removal History of Present Illness Reason for Consultation: PEG tube malfunction Attending Physician: Magalis Johnson MD History of Present Illness Patient is a 70 yo male with a PMH of head and neck cancer. He notes he had a PEG tube placed 15 years ago. He reports that he used this tube during his treatments, but stopped using it around 14 years ago. He reports that he had cut the external tube off at some point (rather than having this formally removed). Some number of years ago he began struggling with fluid leaking from the PEG site. Rather than keep replacing the gauze and seeking medical attention, the patient decided to place a 3-4 inch metal bolt in the PEG opening. I'm unsure of his tetanus status, but he claims this bolt was brand new when he placed it. This was done quite some time ago and he is unsure if it will come out. Presently, he does appear to be malnourished and has new CT findings concerning for metastatic mass in his chest. Of note, patient tells me "I'm not using this tube. You can place another one, but I will refuse to use it." Allergies Allergy/AdvReac Type Severity Reaction Status Date / Time No Known Allergies Allergy Unverified 04/07/21 13:59 Home Medications Medication Instructions Recorded Confirmed Type lisinopril 10 mg PO QAM 04/07/21 04/07/21 History Patient History Medical History (Updated 04/08/21 @ 14:32 by DYAN Rosales) Cachexia Palliative care encounter Throat cancer Weakness Family History Other Diabetes Social History Smoking Status: Never smoker Second Hand Exposure: No; Do You Dip or Chew Tobacco: No; Hx Alcohol Use: No Hx Substance Use: No Preferred Language: Faroese Communication Ability: Effective 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 Beliefs That Will Affect Care: None Current Living Situation: Alone Other Information That Helps Us Care for You: No Feels Safe at Home: Yes Safety Concerns: Feels Safe At This Time Assistive Devices: None Review of Systems Constitutional: no fever and no chills Respiratory: no cough and no dyspnea Cardiovascular: no chest pain Gastrointestinal: no abdominal pain and no change in bowel habits Psychiatric: no problem reported Physical Exam Constitutional: + ill appearing and + frail appearing Respiratory: normal respiratory effort Gastrointestinal (Abdomen): PEG site indicates a tube that was cut down to stoma level with external bumper present. PEG site is plugged with a 3-4 inch metal bolt. Results & Data ([facility]) Vital Signs (Past 12 Hours) Vital Signs Temp Pulse Resp BP Pulse Ox 04/08/21 07:17 36.3 C L 66 16 165/83 H 96 04/07/21 23:00 36.8 C 83 18 152/79 H 100 PG Care Time/CCT Total # of Minutes Spent Total Time Spent with Patient: Total time spent is greater than 50% in coordination of care (as documented) at patient's floor/unit and/or counseling patient: Coding Level of Care Code 58417 Initial Inpt Care Lvl 3 Diagnoses PEG tube malfunction K94.23
[2021-04-08] MEDS: MoRPHine SULFATE 4 MG/ML 1 ML CARP\\VIAL IV PRN ×3 (10:19→19:38)
[2021-04-08] MEDS ORDERED: MoRPHine SULFATE 2 MG/ML CARP IV STA (11:04)
--- NOTE | 2021-04-08 12:34 | Electrocardiogram Report ---
Test Reason : Blood Pressure : / mmHG Vent. Rate : 083 BPM Atrial Rate : 083 BPM P-R Int : 166 ms QRS Dur : 084 ms QT Int : 370 ms P-R-T Axes : 080 039 077 degrees QTc Int : 434 ms Poor data quality, interpretation may be adversely affected Normal sinus rhythm Possible Left atrial enlargement Anteroseptal infarct , age undetermined Abnormal ECG No previous ECGs available Confirmed by Jerrell Cervantes ([id number]) on 04/08/2021 12:33:53 PM Referred By: REFERRED SELF Confirmed By:César Cervantes
[2021-04-08 13:19] LABS: Magnesium 2.4 mg/dl (1.8-2.4); Phosphorus 2.4 mg/dl (2.5-4.9)
[2021-04-08] MEDS: MULTI VIT W/MINERALS LIQUID 15 ML UDP PO SCH (14:14)
[2021-04-08] MEDS: THIAMINE HCL 100 MG in SYRINGE 9 ML IV SCH (14:15)
--- NOTE | 2021-04-08 14:33 | Palliative Care Consultation ---
Date of Consultation April 08, 2021 Assessment & Plan (1) Palliative care encounter: Mr. Nance is a 70 year old male that presented to the [facility] by suggestion of his brother with persistent chest wall pain that he describes radiating from clavicle to clavicle and back towards his shoulder blades. He also has a visible and protruding anterior chest wall mass. Additionally, he has a 3.5 x 3.1 cm mass in the LEAH. 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 He was diagnosed and treated for head and neck cancer 15 years ago and was treated at the [facility]. A CT scan was obtained upon his arrival with results indicating metastatic disease including bone spread. An FNA was performed today for biopsy which was sent to pathology. Palliative Medicine was consulted to discuss goals of care with this individual. I was able to meet with Mr. Nance. He was sitting upright in his hospital bed in no apparent distress. He was AAOx3 during our encounter and was able to have full participation in his goals of care conversation. 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 He said "I know its not good". He pointed to his chest and said "This is cancer, there is nothing else it could be". He stated that his goals are to be at home. He lives with 3 other individuals; one specifically, named Samara, whom he says has experience as a caregiver and whom he has had a relationship with before. He said that she would be willing and able to care from him if he was not able. He indicated that he would want Bryce "Loc" and Saqib who are both of his brothers to be his decision makers in the event he did not have decision making capacity. I did contact Stephanie Ortega in Service Excellence and she will work to complete decision making paperwork tomorrow (Thursday) We talked about code status and he stated that he would not want CPR or a breathing tube for various reasons if it was unlikely he was to have a meaningful recovery. Code status reflected in the computer to indicate DNR/DNI. Case management updated about his goal to return home for his final time of his life. I do have concerns about him from a malnourishment, cachexia and overall ability for the caregivers to provide him with comfort towards the end of his life. Discussed that having Office of Aging involved may be beneficial. Based on progression, could also look at SNF as an option, although patient is hesitant for this. Palliative will follow along. (2) Chest wall mass: (3) Throat cancer: (4) Cachexia: (5) Weakness: History of Present Illness Reason for Consultation: Goals of Care Requesting Physician: Sherlyn Pham PA-C Attending Physician: Magalis Johnson MD History of Present Illness Mr. Nance is a 70 year old male that presented to the [facility] by suggestion of his brother with persistent chest wall pain that he describes radiating from clavicle to clavicle and back towards his shoulder blades. He also has a visible and protruding anterior chest wall mass. Additionally, he has a 3.5 x 3.1 cm mass in the LEAH. 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 He was diagnosed and treated for head and neck cancer 15 years ago and was treated at the [facility]. A CT scan was obtained upon his arrival with results indicating metastatic disease including bone spread. An FNA was performed today for biopsy which was sent to pathology. Palliative Medicine was consulted to discuss goals of care with this individual. Please see A/P for further details. Thanks for involving Palliative will this individual. Allergies Allergy/AdvReac Type Severity Reaction Status Date / Time No Known Allergies Allergy Unverified 04/07/21 13:59 Home Medications Medication Instructions Recorded Confirmed Type lisinopril 10 mg PO QAM 04/07/21 04/07/21 History Patient History Medical History (Updated 04/08/21 @ 14:32 by DYAN Rosales) Cachexia Palliative care encounter Throat cancer Weakness Family History Other Diabetes Social History Smoking Status: Never smoker Second Hand Exposure: No; Do You Dip or Chew Tobacco: No; Hx Alcohol Use: No Hx Substance Use: No Preferred Language: Guyanese Communication Ability: Effective 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 Beliefs That Will Affect Care: None Current Living Situation: Alone Other Information That Helps Us Care for You: No Feels Safe at Home: Yes Safety Concerns: Feels Safe At This Time Assistive Devices: None Review of Systems Review of Systems: [place] System Assessment Scale: Pain: 2/3 Tiredness: 0/3 Shortness of breath: 1/3 Anxiety: 0/3 Palliative Performance Scale: 40% Physical Exam Constitutional: + cachectic, + frail appearing, cooperative and comfortable ENMT: Nose: + dry nasal mucous membranes Neck: + short neck Respiratory: + cough and able to speak in complete sentences Auscultation: + diminished lung sounds Cardiovascular: Heart Sounds: normal S1 and normal S2 Extremities: normal capillary refill Chest (Breasts): Chest: + mass (anterior chest wall) Gastrointestinal (Abdomen): normal bowel sounds, soft, nontender, no hepatosplenomegaly Skin: + dry skin Psychiatric: A+Ox3, euthymic affect Insight: good insight Judgement: good judgement Results & Data ([facility]) Vital Signs (Past 12 Hours) Vital Signs Temp Pulse Resp BP Pulse Ox 04/08/21 07:17 36.3 C L 66 16 165/83 H 96 PG Care Time/CCT Total # of Minutes Spent Total Time Spent with Patient: Total time spent is greater than 50% in coordina tion of care (as documented) at patient's floor/unit and/or counseling patient: 70 minutes with > 50% of that time spent assessing the patient, discussing goals of care with the patient, and collaborating with IDT Coding Level of Care Code 55083 Inpt Consult Level 3 Diagnoses Palliative care encounter Z51.5 Chest wall mass R22.2 Throat cancer C14.0 Cachexia R64 Weakness R53.1 Time Spent (min) 70
--- NOTE | 2021-04-08 15:45 | Ultrasound Report ---
ULTRASOUND-GUIDED FINE-NEEDLE ASPIRATION OF A MANUBRIAL LESION CLINICAL HISTORY: Head and neck cancer. Large manubrial lesion seen by CT. COMPARISON STUDY: Chest CT dated 04/07/2021. PROCEDURE: The risks, benefits, and alternatives to the procedure were discussed with the patient. Wr itten informed consent was obtained. The patient was placed supine in ultrasound, and the large destr uctive lesion involving the manubrium of the sternum and overlying soft tissue component was localize d by ultrasound and selected for fine needle aspiration. The anterior upper chest was prepped and aman ped in the usual sterile fashion. The lesion was aspirated under ultrasound guidance with 4 passes ut ilizing 25-gauge needles. Specimens were reviewed by the pathologist in real-time and deemed adequate for diagnosis. The patient tolerated the procedure well and left the department in satisfactory cond ition. IMPRESSION: Completed fine-needle aspiration of a large manubrial lesion as above. ACT 112: Negative or not required by law. Electronically signed by: Cyril Mike M.D. 04/08/2021 3:44 PM
[2021-04-08] MEDS ORDERED: bisacodyL 10 MG SUPP PR PRN (16:11)
[2021-04-08] MEDS ORDERED: POTASSIUM PHOS 3 MMOL/1 ML INFUSION IV STA (16:19)
[2021-04-08] MEDS ORDERED: POTASSIUM PHOSPHATE 9 MMOL in SODIUM CHLORIDE 0.9% 250 ML IV ONE (16:30)
[2021-04-08] MEDS ORDERED: FUROSEMIDE 20 MG in SYRINGE 0 ML IV ONE (16:30)
[2021-04-08] MEDS: POLYETHYLENE (MIRALAX) 17 GM PACK PO SCH (17:20)
[2021-04-08] MEDS: ENOXAPARIN INJ 30 MG/0.3 ML SYR SQ SCH (18:18)
[2021-04-08 19:12] LABS: Appearance Urine Clear (Clear); Bilirubin Urine Negative (Negative); Blood Urine Negative (Negative); Color Urine Yellow; Glucose Urine UA Negative (Negative); Ketones Urine Negative (Negative); Leukocyte Esterase Urine Negative (Negative); Nitrite Urine Negative (Negative); Protein Urine Negative (Negative); Specific Gravity Urine 1.012 (1.000-1.030); Urobilinogen Urine Negative (Negative); pH Urine 6.5 (4.5-7.5)
[2021-04-09] MEDS: D5W AND 1/2NSS + 20MEQ KCL 20 MEQ/1,000 ML BAG IV SCH (05:34)
[2021-04-09] MEDS: MoRPHine SULFATE 4 MG/ML 1 ML CARP\\VIAL IV PRN ×4 (05:37→21:02)
[2021-04-09 06:47] LABS: Hematocrit (blood only) 29.2 % (42-52); Hemoglobin 9.6 g/dL (14.0-18.0); Mean Corpuscular Hemoglobin 31.8 pg (25-34); Mean Corpuscular Hgb Conc 32.9 g/dL (32-36); Mean Corpuscular Volume 96.7 fL (80-100); Mean Platelet Volume 9.6 fL (7.4-10.4); Platelet Count 282 K/uL (130-400); RDW Coefficient of Variation 13.5 % (11.5-14.5); RDW Standard Deviation 47.3 fL (36.4-46.3); Red Blood Count 3.02 M/uL (4.7-6.1); White Blood Count 6.78 K/uL (4.8-10.8)
[2021-04-09 07:26] LABS: Albumin Level 2.5 gm/dl (3.4-5.0); BUN Creatinine Ratio 17.1 (10-20); Calcium 9.2 mg/dl (8.5-10.1); Creatinine Clr Calc Pharmacy 61.1 ml/min; Est GFR (African American) 107.5 ml/min; Est GFR (Non-African American) 92.8 ml/min; Potassium 3.4 mmol/L (3.5-5.1)
[2021-04-09 07:31] LABS: Albumin Globulin Ratio 0.8 (0.9-2); Bilirubin,Total 0.5 mg/dl (0.2-1); Globulin 3.3 gm/dl (2.5-4.0); Total Protein 5.8 gm/dl (6.4-8.2)
--- NOTE | 2021-04-09 08:16 | Hospitalist Progress Note ---
Date of Service April 09, 2021 Assessment & Plan (1) Chest wall mass: Malignantquestion will be whether or not it is a recurrence of his prior throat cancer (15-16 yrs ago s/p chemo/XRT [facility]), versus a different primary malignancy. Either way the overall appearance is extremely worrisome prognostically. Discussed this with the patient frankly and openly. He is well aware that it may be something not very amenable to treatment. CT chest * 1. Large destructive infiltrative mass centered within the anterior right upper chest wall which results in erosion of the manubrium, undersurface of the proximal right clavicle and the anterior right first and second ribs. This extends into the right upper lobe and invades the mediastinum. This is consistent with a neoplasm and may reflect a lung malignancy invading the chest wall. A chondrosarcoma is also within the differential given the CT appearance. Tissue sampling is recommended. * 2. Irregular 3.5 x 3.1 cm left upper lobe mass. The appearance favors a primary lung malignancy although metastatic disease could appear similar. * 3. Spiculated 1.4 cm right middle lobe nodule also consistent with a neoplastic process. * 4. Small left pleural effusion. * 5. Bilateral upper lobe volume loss. CTA/P suboptimal and no use of contrast. No obstruction, stool noted. (miralax prn, dulcolax [place] prn) No CT Head obtained. Did have discussion about outpatient PET scan Oncology consulted s/p FNA on 04/08 * FINAL DIAGNOSIS: * Mediastinum, sternal mass, ultrasound-guided fine needle aspiration: Squamous cell carcinoma (see comment) * Comment: The history of a head and neck tumor combined with intensely positive p16 staining is highly suggestive of a head and neck primary site. Primary lung squamous cell carcinomas can occasionally show p16 staining, though this is much less common. Clinical correlation required. GI consulted -- did not want another feeding tube/replacement of PEG initially but discussed pathology and would ideally address prior to starting chemo and palliative radiation Discussed with Dr. Reza this evening and he would like general surgery input on stainless steel bolt/assistance for removal prior to intervention/replacement of PEG tube --> General surgery consulted. Discussed with Kym from general surgery and she will discuss with Dr. Jett Deck Mate on consult for nutritional assessment -- ordered Thiamine IV to help avoid refeeding syndrome. Also ordered Cerovite (patient unable to tolerate...very sensitive mucosa but without evidence of thrush on examination --> did dilute with water today and tolerated better) Replacement of potassium (3.4), phos (2.2) -- repeat labs in AM Pain control -- IMPROVING HYPERCALCEMIA ADDRESSED. Morphine IV through yesterday but discussed trying oral Roxanol (utilized oxycodone syrup at home in past) Palliative on consult -- DNR (2) Anemia: Normocytic- likely relates to malnutrition and overall clinical situation Hgb 11.6 on admission --> 9.6. (also on continuous IVF for dehydration) Iron studies low iron 28, TIBC 192, transferrin 139L, transferrin % sat 14%L --> Will order IV Venofer while inpatient B12/folate pending CBC in AM (3) Hypercalcemia: Almost certainly from bony erosion. Ca improving --> 9.2 from 11.4. Albumin 2.5 PTH <6.7 , appropriately low given elevated Ca Continued IVF. Got lasix IV x 2 Vit D level low normal 36.7 Suspect 2nd to malignancy/bony invasion Labs in AM (4) Dehydration: IV fluids, see below under malnutrition otherwise RESOLVING -- continue through today then d/c to see if able to keep up with demands (5) Malnutrition: His PEG tube site has been in place for about 15 or 16 years, and so hopefully the tract is still viable for use. Will need some help from gastroenterology on getting it functioning agai n/probably replacing the tube and removing the bolt. And then he appears to be at least some risk for refeeding syndrome as we start tube feeds. --> Patient stated he did not want to have PEG tube removed/replaced or to continue tube feeds. Per oncology, may not be able to undergo treatment if not addressed prior. Will have continued conversations Consult dietitian -- thiamine and supplements ordered today Mag wnl, phos still low as above Monitor in AM (6) Throat cancer: See above, the main concern of course would be a recurrence of his primary throat cancer, although other primary tumor certainly would be possible Pathology as above (7) DVT prophylaxis: Lovenox (8) Discharge planning issues: PT/OT eval and treat -- recs for return home when medically stable Seen by palliative care - code status changed to DNR. Service excellence consulted for POA/advance directive paperwork POA: Health Care Agent: Mali Dooley, cell: [phone] (Significant Other) First Alternative Health Care Agent: Bryce Nance, cell: [phone] (Brother) Second Alternative Health Care Agent: Saqib Nance, cell: [phone] (Brother) Part II: Living Will (Patient Chose not to complete this section and marked where his agents can use his instructions as only guidance and make the final decisions related to his medical care) He does not consent to organ donation Dispo: continued inpatient stay general surgery consulted for assistance with bolt -- then possible PEG placement with GI if able to assist Admission and Anticipated Discharge Date Admission Date: April 07, 2021 Supervising Physician Co-Signing Physician Notes PA Supervision Note: I did not personally see or examine the patient today, but I verified all lynn points of KATIE Pham's assessment and plan with the following exceptions/additions: None Subjective Patient evaluated this morning. Doing much better as far as pain. Prior "20/10" now "10" but reporting feeling much better with current regimen. Discussed oral roxanol suspension. Tolerated oral Cerovite this morning diluted in water. Better appetite. Would like chocolate chip cookie -- he has at home and dissolves in hot coffee without issue. He has been eating most of his tray. Discussed PEG swap/replacement. He is aware this likely will need addressed but would like to await pathology prior to decision on that. No fever, chills, shortness of breath, abdominal pain, nausea, vomiting. Passing gas but no BM today. Had gotten miralax this morning and states this typically does help at home. Girlfriend aide and able to help at home. Also wants brothers involved in care. Seen by palliative yesterday and changed code to DNR. He does want to seek treatment and is hopeful to get back to be able to ride his bike eventually if improvements made. Back in evening to discuss plan of care with patient as pathology with likely head/neck origin and discussed with Dr. Randhawa who would like PEG addressed prior to beginning chemotherapy. Discussed with Dr. Reza -- he would like general surgery involved for assistance/recommendations for bolt removal prior to undergoing placement for new peg/see if patent. Discussed with Kym from surgical team who will have Dr. Jett review case. Pending recommendations/assistance could possibly get him scheduled for and possible d/c Thursday vs Thursday (patient hopeful for home by sometime Thursday). Questions/concerns addressed at this time. Review of Systems Review of Systems: All systems reviewed & are unremarkable except as noted in HPI & below Physical Exam Constitutional: + thin, + cachectic, cooperative and comfortable (sitting up in chair eating breakfast); no acute distress Eyes: + anicteric sclerae and PERRL Neck: trachea midline Respiratory: normal respiratory effort and + cough (occassional); no labored breathing and not tachypneic Auscultation: + diminished lung sounds; no crackles, no rales and no wheezes Cardiovascular: RRR, no murmur, no edema Chest (Breasts): Additional Comments: right sided anterior chest wall mass, approximately 4inch in diameter, oval, fixed Gastrointestinal (Abdomen): Inspection/Auscultation: normal bowel sounds Percussion/Palpation: abdomen soft (scaphoid); abdomen nontender, no guarding and abdomen not rigid Musculoskeletal: Head/Neck/Chest: normocephalic and head atraumatic moves all extremities Skin: cool, dry Neurologic: PERRL, EOMI, accommodation nl, no face palsy, no dysarthria Psychiatric: Orientation: alert and oriented x 3 Results & Data Results & Data ([facility]) Vital Signs (Past 12 Hours) Vital Signs Temp Pulse Resp BP Pulse Ox 04/08/21 22:49 36.9 C 71 17 148/80 H 97 Laboratory Results 04/09/21 04/09/21 04/09/21 Range/Units 06:10 06:10 06:10 WBC 6.78 (4.8-10.8) K/uL RBC 3.02 L (4.7-6.1) M/uL Hgb 9.6 L (14.0-18.0) g/dL Hct 29.2 L (42-52) % MCV 96.7 (80-100) fL MCH 31.8 (25-34) pg MCHC 32.9 (32-36) g/dL RDW Std Deviation 47.3 H (36.4-46.3) fL RDW Coeff of Hem[place] 13.5 (11.5-14.5) % Plt Count 282 (130-400) K/uL MPV 9.6 (7.4-10.4) fL Sodium 138 (136-145) mmol/L Potassium 3.4 L (3.5-5.1) mmol/L Chloride 104 (98-107) mmol/L Carbon Dioxide 29 (21-32) mmol/L Anion Gap 5.0 (3-11) BUN 13 (7-18) mg/dl Creatinine 0.78 (0.6-1.4) mg/dl Est Cr Clr Drug Dosing 61.1 ml/min Est GFR ( Amer) 107.5 ml/min Est GFR (Non-Af Amer) 92.8 ml/min BUN/Creatinine Ratio 17.1 (10-20) Glucose 95 (70-99) mg/dl Calcium 9.2 (8.5-10.1) mg/dl Phosphorus (2.5-4.9) mg/dl Magnesium 2.1 (1.8-2.4) mg/dl Total Bilirubin 0.5 (0.2-1) mg/dl AST 16 (15-37) U/L ALT 8 L (12-78) U/L Alkaline Phosphatase 84 (45-117) U/L Total Protein 5.8 L D (6.4-8.2) gm/dl Albumin 2.5 L (3.4-5.0) gm/dl Globulin 3.3 (2.5-4.0) gm/dl Albumin/Globulin Ratio 0.8 L (0.9-2) 25-OH Vitamin D Total (30-100) ng/ml PTH Intact (18.4-80.1) pg/ml Urine Color Urine Appearance (Clear) Urine pH (4.5-7.5) Ur Specific [place] (1.000-1.030) Urine Protein (Negative) Urine Glucose (UA) (Negative) Urine Ketones (Negative) Urine Blood (Negative) Urine Nitrite (Negative) Urine Bilirubin (Negative) Urine Urobilinogen (Negative) Ur Leukocyte Esterase (Negative) 04/09/21 04/08/21 04/08/21 Range/Units 06:10 18:25 06:02 WBC (4.8-10.8) K/uL RBC (4.7-6.1) M/uL Hgb (14.0-18.0) g/dL Hct (42-52) % MCV (80-100) fL MCH (25-34) pg MCHC (32-36) g/dL RDW Std Deviation (36.4-46.3) fL RDW Coeff of Hemalatha (11.5-14.5) % Plt Count (130-400) K/uL MPV (7.4-10.4) fL Sodium (136-145) mmol/L Potassium (3.5-5.1) mmol/L Chloride (98-107) mmol/L Carbon Dioxide (21-32) mmol/L Anion Gap (3-11) BUN (7-18) mg/dl Creatinine (0.6-1.4) mg/dl Est Cr Clr Drug Dosing ml/min Est GFR ( Amer) ml/min Est GFR (Non-Af Amer) ml/min BUN/Creatinine Ratio (10-20) Glucose (70-99) mg/dl Calcium (8.5-10.1) mg/dl Phosphorus 2.4 L (2.5-4.9) mg/dl Magnesium 2.4 (1.8-2.4) mg/dl Total Bilirubin (0.2-1) mg/dl AST (15-37) U/L ALT (12-78) U/L Alkaline Phosphatase (45-117) U/L Total Protein (6.4-8.2) gm/dl Albumin (3.4-5.0) gm/dl Globulin (2.5-4.0) gm/dl Albumin/Globulin Ratio (0.9-2) 25-OH Vitamin D Total 36.7 (30-100) ng/ml PTH Intact (18.4-80.1) pg/ml Urine Color Yellow Urine Appearance Clear (Clear) Urine pH 6.5 (4.5-7.5) Ur Specific [place] 1.012 (1.000-1.030) Urine Protein Negative (Negative) Urine Glucose (UA) Negative (Negative) Urine Ketones Negative (Negative) Urine Blood Negative (Negative) Urine Nitrite Negative (Negative) Urine Bilirubin Negative (Negative) Urine Urobilinogen Negative (Negative) Ur Leukocyte Esterase Negative (Negative) 04/08/21 04/07/21 Range/Units 06:02 16:15 WBC (4.8-10.8) K/uL RBC (4.7-6.1) M/uL Hgb (14.0-18.0) g/dL Hct (42-52) % MCV (80-100) fL MCH (25-34) pg MCHC (32-36) g/dL RDW Std Deviation (36.4-46.3) fL RDW Coeff of Hemal[place] (11.5-14.5) % Plt Count (130-400) K/uL MPV (7.4-10.4) fL Sodium (136-145) mmol/L Potassium (3.5-5.1) mmol/L Chloride (98-107) mmol/L Carbon Dioxide (21-32) mmol/L Anion Gap (3-11) BUN (7-18) mg/dl Creatinine (0.6-1.4) mg/dl Est Cr Clr Drug Dosing ml/min Est GFR ( Amer) ml/min Est GFR (Non-Af Amer) ml/min BUN/Creatinine Ratio (10-20) Glucose (70-99) mg/dl Calcium (8.5-10.1) mg/dl Phosphorus (2.5-4.9) mg/dl Magnesium (1.8-2.4) mg/dl Total Bilirubin (0.2-1) mg/dl AST (15-37) U/L ALT (12-78) U/L Alkaline Phosphatase (45-117) U/L Total Protein (6.4-8.2) gm/dl Albumin (3.4-5.0) gm/dl Globulin (2.5-4.0) gm/dl Albumin/Globulin Ratio (0.9-2) 25-OH Vitamin D Total (30-100) ng/ml PTH Intact < 6.3 L < 6.3 L (18.4-80.1) pg/ml Urine Color Urine Appearance (Clear) Urine pH (4.5-7.5) Ur Specific [place] (1.000-1.030) Urine Protein (Negative) Urine Glucose (UA) (Negative) Urine Ketones (Negative) Urine Blood (Negative) Urine Nitrite (Negative) Urine Bilirubin (Negative) Urine Urobilinogen (Negative) Ur Leukocyte Esterase (Negative) Diagnostic Findings Lymph Node Biopsy Ultrasound 04/08/21 00:00 ULTRASOUND-GUIDED FINE-NEEDLE ASPIRATION OF A MANUBRIAL LESION CLINICAL HISTORY: Head and neck cancer. Large manubrial lesion seen by CT. COMPARISON STUDY: Chest CT dated 04/07/2021. PROCEDURE: The risks, benefits, and alternatives to the procedure were discussed with the patient. Written informed consent was obtained. The patient was placed supine in ultrasound, and the large destructive lesion involving the manubrium of the sternum and overlying soft tissue component was localized by ultrasound and selected for fine needle aspiration. The anterior upper chest was prepped and draped in the usual sterile fashion. The lesion was aspirated under ultrasound guidance with 4 passes utilizing 25-gauge needles. Specimens were reviewed by the pathologist in real-time and deemed adequate for diagnosis. The patient tolerated the procedure well and left the department in satisfactory condition. IMPRESSION: Completed fine-needle aspiration of a large manubrial lesion as above. ACT 112: Negative or not required by law. Electronically signed by: Cyril Mike M.D. 04/08/2021 3:44 PM PG Care Time/CCT Total # of Minutes Spent Total Time Spent with Patient: Total time spent is greater than 50% in c oordination of care (as documented) at patient's floor/unit and/or counseling patient: Prolonged Care Time Prolonged Care Time: Yes Total Prolonged Care Time: 120 time spent at bedside with patient, discussing case with GI financial services education consultant, General Surgery, Oncology, pathology and multiple trips to patients room Coding Level of Care Code 08655 Subseq Hosp Care Lvl 3 Diagnoses Chest wall mass R22.2 Anemia D64.9 Anemia type: unspecified type Hypercalcemia E83.52 Dehydration E86.0 Malnutrition E46 Throat cancer C14.0 DVT prophylaxis Z29.9 Discharge planning issues Z02.9 Additional Codes Prolonged Care Time - Prolonged Care Time: Yes ([id number]) (1) Anemia Anemia type: unspecified type Qualified Code(s): D64.9 - Anemia, unspecified
[2021-04-09] MEDS ORDERED: POTASSIUM CHLORIDE / WTR 10 MEQ/100 ML PLCT IV ONE (08:30)
[2021-04-09 10:07] LABS: Ferritin 374.7 ng/ml (8-388); Phosphorus 2.2 mg/dl (2.5-4.9)
[2021-04-09] MEDS: POLYETHYLENE (MIRALAX) 17 GM PACK PO SCH (11:11)
[2021-04-09] MEDS: MULTI VIT W/MINERALS LIQUID 15 ML UDP PO SCH (11:11)
[2021-04-09] MEDS: THIAMINE HCL 100 MG in SYRINGE 9 ML IV SCH (11:11)
[2021-04-09] MEDS ORDERED: MAGNESIUM CITRATE 296 ML/BTL PO PRN (12:24)
[2021-04-09] MEDS ORDERED: FUROSEMIDE 20 MG in SYRINGE 0 ML IV ONE (12:45)
[2021-04-09] MEDS ORDERED: POTASSIUM PHOS 3 MMOL/1 ML INFUSION IV STA (13:02)
[2021-04-09] MEDS: NSS + 20MEQ KCL 20 MEQ/1,000 ML BAG IV SCH (13:18)
[2021-04-09] MEDS ORDERED: POTASSIUM PHOSPHATE 15 MMOL in SODIUM CHLORIDE 0.9% 250 ML IV ONE (13:30)
[2021-04-09] MEDS ORDERED: IRON SUCROSE 300 MG in SODIUM CHLORIDE 0.9% 250 ML IV STA (15:57)
--- NOTE | 2021-04-09 18:22 | Surgery Consultation ---
Date of Consultation April 09, 2021 Assessment & Plan (1) PEG tube malfunction: pt is a 70 year-old male who was admitted to hospital for large chest wall mass with non-function PEG, IMP, chest wall mass,non-function PEG, pt needs remove old PEG, and place new PEG, I do not do PEG, it is best for pt remove old one and place new one through endoscopy, minimal trauma, instead surgery remove and place new one, large incision, the incision may never heal base on pt;'s malnutrition and cachexia, or pt needs to transfer the hospital where pt had PEG placed , sign off today, please call with questions, Thanks, Present on Admission?: Yes (2) Cachexia: (3) Chest wall mass: Supervising Physician Co-Signing Physician Notes KATIE Supervision Note: I did not personally see or examine the patient today, but I verified all lynn points of KATIE Pham's assessment and plan with the following exceptions/additions: None History of Present Illness Attending Physician: Magalis Johnson MD History of Present Illness Chief Complaint: Chest wall pain, inability to swallow, weakness Primary Care Provider: Dylan Segura Patient is a very pleasant 70-year-old male who notes that he was in a good baseline state of health for quite a long time, until about the last 4 months. He started with a little bit of a lump on his chest wall, was paying attention to it but felt like it would probably go away, unfortunately it continued to grow. During that time he started to lose the ability to swallow, started losing weight (he was not really able to quantify exactly how much but it seems like a lot) and had progressively more pain. Finally over the last week or so, with an amalgamation of worsening pain, worsening failure to thrive/weakness, and growth of the mass, his brother was able to convince him to bring the issue up with his PCPwho ordered a CT scan. In between then and now, the patient's pain worsened and his ability to take care of himself at home worsened as welland they came to the ER. Here he was found to have worrisome findings on CT of a large mass eroding into his sternum, as well as several other (presumably satellite) lesions. He notes about 15 or 16 years ago he was diagnosed with tongue cancerthis was actually managed successfully with radiation and chemo at [facility]. During that time he had a PEG tube placed, and actually this year he was finally planning on getting around to having GI remove the PEG tube as he has not used it in years (it was leaking, and the tube had broken, and so he actually has it plugged with a rather large bolt). 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 He notes, however, that he is much weaker and frailer than when he went through cancer treatment before. He also notes he absolutely never smoked or chewed. As far as past medical history, he relates hypertensionand is on one medicine, although he was not quite sure what it was. He also notes that recently his PCP started him on liquid pain medicine, which he thought was probably oxycodone. I called his pharmacy to confirmhe is listed as being on 10 mg of lisinopril daily, 50 mg of atenolol daily, and oxycodone 5 mg every 6 hours as needed pain. I ( Dagmar Jett MD ) got a call for consult opinion for PEG, I reviewed pt's H/P, labs, and CT scan with pt, Allergies Allergy/AdvReac Type Severity Reaction Status Date / Time No Known Allergies Allergy Unverified 04/07/21 13:59 Home Medications Medication Instructions Recorded Confirmed Type lisinopril 10 mg PO QAM 04/07/21 04/07/21 History Past Med/Surg History Medical History Throat cancer Family History Other Diabetes Social History Smoking Status: Never smoker Preferred Language: Macedonian Feels Safe at Home: Yes Review of Systems Review of Systems: All systems reviewed & are unremarkable except as noted in HPI & below Allergies Allergy/AdvReac Type Severity Reaction Status Date / Time No Known Allergies Allergy Unverified 04/07/21 13:59 Home Medications Medication Instructions Recorded Confirmed Type lisinopril 10 mg PO QAM 04/07/21 04/07/21 History Patient History Medical History (Updated 04/08/21 @ 14:32 by DYAN Rosales) Cachexia Palliative care encounter Throat cancer Weakness Family History Other Diabetes Social History Smoking Status: Never smoker Second Hand Exposure: No; Do You Dip or Chew Tobacco: No; Hx Alcohol Use: No Hx Substance Use: No Preferred Language: Macedonian Communication Ability: Effective Frame Maker Required: No Beliefs That Will Affect Care: None Current Living Situation: Alone Other Information That Helps Us Care for You: No Feels Safe at Home: Yes Safety Concerns: Feels Safe At This Time Assistive Devices: None Physical Exam Constitutional: WD/WN, vitals as above + ill appearing and + cachectic Eyes: PERRL, conjunctivae normal, anicteric sclerae Neck: trachea midline, no thyromegaly Respiratory: normal respiratory effort, lungs clear to auscultation large mass on anterior chest wall, size about 8x10cm, Cardiovascular: RRR, no murmur, no edema Gastrointestinal (Abdomen): normal bowel sounds, soft, nontender, no hepatosplenomegaly one PEG with bolt on LUQ, no redness, no tenderness, no distend, BS + Musculoskeletal: no cyanosis or clubbing, extremities motor strength 5/5 Neurologic: awake Psychiatric: Orientation: alert and oriented x 3 Results & Data ([facility]) Vital Signs (Past 12 Hours) Vital Signs Temp Pulse Resp BP Pulse Ox 04/09/21 16:59 36.5 C 76 18 145/84 H 98 04/09/21 08:52 36.3 C L 74 18 151/89 H 99 Laboratory Results Abnormal lab results 04/09/21 04/09/21 04/09/21 Range/Units 06:10 06:10 09:18 RBC 3.02 L (4.7-6.1) M/uL Hgb 9.6 L (14.0-18.0) g/dL Hct 29.2 L (42-52) % RDW Std Deviation 47.3 H (36.4-46.3) fL Potassium 3.4 L (3.5-5.1) mmol/L Phosphorus 2.2 L (2.5-4.9) mg/dl Iron 28 L (35-175) mcg/dl TIBC 192 L (250-450) mcg/dl Transferrin 139 L (200-360) mg/dl Transferrin % Sat 14 L (20-50) % ALT 8 L (12-78) U/L Total Protein 5.8 L D (6.4-8.2) gm/dl Albumin 2.5 L (3.4-5.0) gm/dl Albumin/Globulin Ratio 0.8 L (0.9-2) Diagnostic Findings CT OF THE ABDOMEN AND PELVIS WITHOUT CONTRAST CLINICAL HISTORY: Vomiting. Evaluate for obstruction. COMPARISON STUDY: No previous studies for comparison. TECHNIQUE: Axial images of the abdomen and pelvis were obtained without IV contrast. Images were reviewed in the axial, sagittal, and coronal planes. Automated exposure control was utilized for the study. A dose lowering technique was utilized adhering to the principles of ALARA. FINDINGS: Please note that the chest CT will be reported separately. A small left pleural effusion is noted. A small pericardial effusion is also present. Gastrostomy tube is in place. No pneumatosis, free air or portal venous gas is present. Evaluation of the abdomen and pelvis is significantly compromised given lack of contrast and posterior intra-abdominal fat. There is no evidence for a bowel obstruction. There is a large amount stool within the colon and rectum. Unenhanced images of the liver, spleen, adrenal glands, kidneys and pancreas are grossly unremarkable. There is no hydronephrosis. No lymphadenopathy is identified although sensitivity is diminished. Bladder is distended. IMPRESSION: 1. Exam significantly compromised given lack of contrast and paucity of intra- abdominal fat. 2. No bowel obstruction. Large amount of stool within the colon and rectum. 3. Small pericardial effusion. Small left pleural effusion.
[2021-04-09] MEDS: ENOXAPARIN INJ 30 MG/0.3 ML SYR SQ SCH (20:57)
[2021-04-10] MEDS: MoRPHine SULFATE 4 MG/ML 1 ML CARP\\VIAL IV PRN ×4 (01:34→19:56)
[2021-04-10] MEDS: NSS + 20MEQ KCL 20 MEQ/1,000 ML BAG IV SCH ×3 (01:48→16:18)
[2021-04-10] MEDS ORDERED: MoRPHine SULFATE 2 MG/ML CARP ONE (05:42)
[2021-04-10 06:31] LABS: Basophils # (auto) 0.01 K/uL (0-0.2); Basophils % (auto) 0.1 %; Eosinophils # (auto) 0.05 K/uL (0-0.5); Eosinophils % (auto) 0.6 %; Hematocrit (blood only) 28.5 % (42-52); Hemoglobin 9.5 g/dL (14.0-18.0); Immature Granulocytes # (auto) 0.03 K/uL (0.00-0.02); Immature Granulocytes % (auto) 0.4 %; Lymphocytes # (auto) 0.79 K/uL (1.2-3.4); Lymphocytes % (auto) 9.8 %; Mean Corpuscular Hemoglobin 32.2 pg (25-34); Mean Corpuscular Hgb Conc 33.3 g/dL (32-36); Mean Corpuscular Volume 96.6 fL (80-100); Mean Platelet Volume 9.4 fL (7.4-10.4); Monocytes # (auto) 0.53 K/uL (0.11-0.59); Monocytes % (auto) 6.6 %; Neutrophils # (auto) 6.66 K/uL (1.4-6.5); Neutrophils % (auto) 82.5 %; Platelet Count 263 K/uL (130-400); RDW Coefficient of Variation 13.6 % (11.5-14.5); RDW Standard Deviation 48.3 fL (36.4-46.3); Red Blood Count 2.95 M/uL (4.7-6.1); White Blood Count 8.07 K/uL (4.8-10.8)
[2021-04-10 06:57] LABS: Albumin Level 2.5 gm/dl (3.4-5.0); BUN Creatinine Ratio 14.5 (10-20); Calcium 8.9 mg/dl (8.5-10.1); Creatinine Clr Calc Pharmacy 66.1 ml/min; Est GFR (African American) 111.1 ml/min; Est GFR (Non-African American) 95.9 ml/min; Phosphorus 2.3 mg/dl (2.5-4.9); Potassium 3.8 mmol/L (3.5-5.1)
[2021-04-10] MEDS: THIAMINE HCL 100 MG in SYRINGE 9 ML IV SCH (07:28)
[2021-04-10] MEDS: POLYETHYLENE (MIRALAX) 17 GM PACK PO SCH (07:28)
[2021-04-10] MEDS: MULTI VIT W/MINERALS LIQUID 15 ML UDP PO SCH (07:28)
--- NOTE | 2021-04-10 08:28 | Hospitalist Progress Note ---
Date of Service April 10, 2021 Assessment & Plan (1) Chest wall mass: Malignantquestion will be whether or not it is a recurrence of his prior throat cancer (15-16 yrs ago s/p chemo/XRT [place]), versus a different primary malignancy. Either way the overall appearance is extremely worrisome prognostically. Discussed this with the patient frankly and openly. He is well aware that it may be something not very amenable to treatment. CT chest * 1. Large destructive infiltrative mass centered within the anterior right upper chest wall which results in erosion of the manubrium, undersurface of the proximal right clavicle and the anterior right first and second ribs. This extends into the right upper lobe and invades the mediastinum. This is consistent with a neoplasm and may reflect a lung malignancy invading the chest wall. A chondrosarcoma is also within the differential given the CT appearance. Tissue sampling is recommended. * 2. Irregular 3.5 x 3.1 cm left upper lobe mass. The appearance favors a primary lung malignancy although metastatic disease could appear similar. * 3. Spiculated 1.4 cm right middle lobe nodule also consistent with a neoplastic process. * 4. Small left pleural effusion. * 5. Bilateral upper lobe volume loss. CTA/P suboptimal and no use of contrast. No obstruction, stool noted. (miralax prn, dulcolax [place] prn) No CT Head obtained. Did have discussion about outpatient PET scan Oncology consulted s/p FNA on 04/08 * FINAL DIAGNOSIS: * Mediastinum, sternal mass, ultrasound-guided fine needle aspiration: Squamous cell carcinoma (see comment) * Comment: The history of a head and neck tumor combined with intensely positive p16 staining is highly suggestive of a head and neck primary site. Primary lung squamous cell carcinomas can occasionally show p16 staining, though this is much less common. Clinical correlation required. GI consulted -- needing assistance with bolt Dr. Jett consulted -- rec transfer to facility where peg placed if unable to address bolt 04/10 Discussed with today and he will attempt to remove old PEG with bolt and place new one at same time tomorrow NPO after midnight Continues on IVF but decrease to 80cc/hr Anemia -- getting IV venofer and will schedule daily while inpatient x 3 doses --B12 checks wnl but folate low at 3.0 and placed on oral supplementation at this time Clammer on consult for nutritional assessment -- ordered Thiamine IV to help avoid refeeding syndrome. Also ordered Cerovite (patient unable to tolerate...very sensitive mucosa but without evidence of thrush on examination --> did dilute with water today and tolerated better) Electrolyte replacement as needed -- Phos 2.3 and ordered additional Kphos IV Pain control -- IMPROVING HYPERCALCEMIA ADDRESSED (resolved currently) Morphine IV through yesterday but discussed trying oral Roxanol (utilized oxycodone syrup at home in past) --> asked nursing to administer roxanol at next dose today Palliative on consult -- DNR Will have radiation/chemo arranged at d/c to begin treatment (2) Anemia: Normocytic- likely relates to malnutrition and overall clinical situation Hgb 11.6 on admission --> 9.5. (also on continuous IVF for dehydration, decreased rate today) Iron studies low iron 28, TIBC 192, transferrin 139L, transferrin % sat 14%L --> Will order IV Venofer while inpatient B12 wnl Folate 3 -- started daily supplementation Monitor (3) Hypercalcemia: Almost certainly from bony erosion. Ca improving --> 8.9 from 11.4. Albumin 2.5 and corrected now wnl PTH <6.7 , appropriately low given elevated Ca Continued IVF. Got lasix IV x 2 Vit D level low normal 36.7 Suspect 2nd to malignancy/bony invasion Monitor (4) Dehydration: IV fluids, see below under malnutrition otherwise resolved on IVF but will continue as NPO after midnight for procedure and d/c after (5) Malnutrition: His PEG tube site has been in place for about 15 or 16 years, and so hopefully the tract is still viable for use. Will need some help from gastroenterology on getting it functioning again/probably replacing the tube and removing the bolt. And then he appears to be at least some risk for refeeding syndrome as we start tube feeds. Consult dietitian -- thiamine and supplements ordered today See above -- electrolyte replacement as above Monitor in AM (6) Throat cancer: See above, the main concern of course would be a recurrence of his primary throat cancer, although other primary tumor certainly would be possible Pathology as above (7) DVT prophylaxis: Lovenox on hold for OR in AM (8) Discharge planning issues: PT/OT eval and treat -- recs for return home when medically stable Seen by palliative care - code status changed to DNR. Service [facility] consulted for POA/advance directive paperwork POA: Health Care Agent: Mali Dooley, cell: [phone] (Significant Other) First Alternative Health Care Agent: Bryce Nance, cell: [phone] (Brother) Second Alternative Health Care Agent: Saqib Nance, cell: [phone] (Brother) Part II: Living Will (Patient Chose not to complete this section and marked where his agents can use his instructions as only guidance and make the final decisions related to his medical care) He does not consent to organ donation Dispo: continued inpatient stay, NPO after midnight Admission and Anticipated Discharge Date Admission Date: April 07, 2021 Supervising Physician Co-Signing Physician Notes KATIE Supervision Note: I did not personally see or examine the patient today, but I verified all lynn points of KATIE Pham's assessment and plan with the following exceptions/additions: None Subjective Patient evaluated this morning. Pain well controlled. To try oral suspension today over the IV. Seen by Dr Garland this morning and plans for bolt removal/peg exchange tomorrow if able. Tolerating diet well. Feeling much better. Some scapular discomfort but he has used biofreeze in the past for. Will try voltaren to see if effective. NO fevers, chills, shortness of breath, abdominal pain, nausea or vomiting at this time. Tolerated and enjoyed his chocolate chip cookies yesterday but is awaiting "his boy" to bring him in some chips ahoy. Review of Systems Review of Systems: All systems reviewed & are unremarkable except as noted in HPI & below Physical Exam Constitutional: + thin, + cachectic, cooperative and comfortable (sitting up in chair eating breakfast); no acute distress Eyes: + anicteric sclerae and PERRL ENMT: slightly dry mm Neck: trachea midline Respiratory: normal respiratory effort and + cough (occassional); no labored breathing and not tachypneic Auscultation: + diminished lung sounds; no crackles, no rales and no wheezes Cardiovascular: RRR, no murmur, no edema Gastrointestinal (Abdomen): Inspection/Auscultation: normal bowel sounds Percussion/Palpation: abdomen soft (scaphoid); abdomen nontender, no guarding and abdomen not rigid PEG tube with 3.5-4in stainless steel bolt attached Musculoskeletal: Head/Neck/Chest: normocephalic and head atraumatic Skin: cool, dry Neurologic: PERRL, EOMI, accommodation nl, no face palsy, no dysarthria Psychiatric: Orientation: alert and oriented x 3 Results & Data Results & Data ([facility]) Vital Signs (Past 12 Hours) Vital Signs Temp Pulse Resp BP Pulse Ox 04/10/21 00:01 36.8 C 70 17 129/70 96 Laboratory Results 04/10/21 04/10/21 04/09/21 Range/Units 06:13 06:13 09:18 WBC 8.07 (4.8-10.8) K/uL RBC 2.95 L (4.7-6.1) M/uL Hgb 9.5 L (14.0-18.0) g/dL Hct 28.5 L (42-52) % MCV 96.6 (80-100) fL MCH 32.2 (25-34) pg MCHC 33.3 (32-36) g/dL RDW Std Deviation 48.3 H (36.4-46.3) fL RDW Coeff of [place] 13.6 (11.5-14.5) % Plt Count 263 (130-400) K/uL MPV 9.4 (7.4-10.4) fL Immature Gran % (Auto) 0.4 % Neut % (Auto) 82.5 % Lymph % (Auto) 9.8 % [place] % (Auto) 6.6 % Eos % (Auto) 0.6 % Baso % (Auto) 0.1 % Neut # (Auto) 6.66 H (1.4-6.5) K/uL Lymph # (Auto) 0.79 L (1.2-3.4) K/uL [place] # (Auto) 0.53 (0.11-0.59) K/uL Eos # (Auto) 0.05 (0-0.5) K/uL Baso # (Auto) 0.01 (0-0.2) K/uL Immature Gran # (Auto) 0.03 H (0.00-0.02) K/uL Sodium 139 (136-145) mmol/L Potassium 3.8 (3.5-5.1) mmol/L Chloride 104 (98-107) mmol/L Carbon Dioxide 30 (21-32) mmol/L Anion Gap 5.0 (3-11) BUN 10 (7-18) mg/dl Creatinine 0.72 (0.6-1.4) mg/dl Est Cr Clr Drug Dosing 66.1 ml/min Est GFR ( Amer) 111.1 ml/min Est GFR (Non-Af Amer) 95.9 ml/min BUN/Creatinine Ratio 14.5 (10-20) Glucose 84 (70-99) mg/dl Calcium 8.9 (8.5-10.1) mg/dl Phosphorus 2.3 L (2.5-4.9) mg/dl Magnesium (1.8-2.4) mg/dl Iron (35-175) mcg/dl TIBC (250-450) mcg/dl Transferrin (200-360) mg/dl Transferrin % Sat (20-50) % Ferritin (8-388) ng/ml Albumin 2.5 L (3.4-5.0) gm/dl Vitamin B12 1087 H (193-986) pg/ml 25-OH Vitamin D Total (30-100) ng/ml Folate 3.00 L (>5.38) ng/ml 04/09/21 04/09/21 04/09/21 Range/Units 09:18 06:10 06:10 WBC (4.8-10.8) K/uL RBC (4.7-6.1) M/uL Hgb (14.0-18.0) g/dL Hct (42-52) % MCV (80-100) fL MCH (25-34) pg MCHC (32-36) g/dL RDW Std Deviation (36.4-46.3) fL RDW Coeff of [place] (11.5-14.5) % Plt Count (130-400) K/uL MPV (7.4-10.4) fL Immature Gran % (Auto) % Neut % (Auto) % Lymph % (Auto) % [place] % (Auto) % Eos % (Auto) % Baso % (Auto) % Neut # (Auto) (1.4-6.5) K/uL Lymph # (Auto) (1.2-3.4) K/uL [place] # (Auto) (0.11-0.59) K/uL Eos # (Auto) (0-0.5) K/uL Baso # (Auto) (0-0.2) K/uL Immature Gran # (Auto) (0.00-0.02) K/uL Sodium (136-145) mmol/L Potassium (3.5-5.1) mmol/L Chloride (98-107) mmol/L Carbon Dioxide (21-32) mmol/L Anion Gap (3-11) BUN (7-18) mg/dl Creatinine (0.6-1.4) mg/dl Est Cr Clr Drug Dosing ml/min Est GFR ( Amer) ml/min Est GFR (Non-Af Amer) ml/min BUN/Creatinine Ratio (10-20) Glucose (70-99) mg/dl Calcium (8.5-10.1) mg/dl Phosphorus 2.2 L (2.5-4.9) mg/dl Magnesium 2.1 (1.8-2.4) mg/dl Iron 28 L (35-175) mcg/dl TIBC 192 L (250-450) mcg/dl Transferrin 139 L (200-360) mg/dl Transferrin % Sat 14 L (20-50) % Ferritin 374.7 (8-388) ng/ml Albumin (3.4-5.0) gm/dl Vitamin B12 (193-986) pg/ml 25-OH Vitamin D Total 36.7 (30-100) ng/ml Folate (>5.38) ng/ml PG Care Time/CCT Total # of Minutes Spent Total Time Spent with Patient: Total time spent is greater than 50% in coordination of care (as documented) at patient's floor/unit and/or counseling patient: Coding Level of Care Code 43171 Subseq Hosp Care Lvl 3 Diagnoses Chest wall mass R22.2 Anemia D64.9 Anemia type: unspecified type Hypercalcemia E83.52 Dehydration E86.0 Malnutrition E46 Throat cancer C14.0 DVT prophylaxis Z29.9 Discharge planning issues Z02.9 (1) Anemia Anemia type: unspecified type Qualified Code(s): D64.9 - Anemia, unspecified
[2021-04-10] MEDS ORDERED: POTASSIUM PHOS 3 MMOL/1 ML INFUSION IV STA (08:33)
[2021-04-10] MEDS ORDERED: POTASSIUM PHOSPHATE 15 MMOL in SODIUM CHLORIDE 0.9% 250 ML IV ONE (09:00)
[2021-04-10] MEDS: FOLIC ACID 1 MG TAB PO SCH (09:31)
[2021-04-10] MEDS: IRON SUCROSE 300 MG in SODIUM CHLORIDE 0.9% 250 ML IV SCH (09:32)
--- NOTE | 2021-04-10 10:20 | Radiation Oncology Progress Nt ---
Date of Service April 10, 2021 Assessment & Plan (1) Throat cancer: (2) Chest wall mass: Assessment: Mr. 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 The patient was admitted to the hospital due to pain control and further work-up and evaluation. The patient was brought down to [facility] oncology department for CT simulation for treatment planning with anticipation for palliative radiation therapy. The patient did have a biopsy of the right anterior chest wall mass which did confirm metastatic squamous cell carcinoma. Currently, the patient's pain is well controlled. Plan: 1. Palliative external beam radiation therapy to right anterior chest wall metastasis. Radiation therapy may be completed in the outpatient setting given adequate pain control with medication. We are currently in the process of obtaining previous radiation dosimetry records from [facility] to determine overlap from previous course of treatment. If patient is discharged, patient will be contacted with start date for radiation therapy. 2. Continue pain management regimen as per primary medical team. 3. Patient should continue to follow with medical oncology and palliative care in the outpatient setting.. 4. Patient and family encouraged to call us with any further questions or concerns. Admission and Anticipated Discharge Date Admission Date: April 07, 2021 Subjective Patient states that his pain is well controlled. Review of Systems Review of Systems: All systems reviewed & are unremarkable except as noted in HPI & below
--- NOTE | 2021-04-10 11:08 | Surgery Consultation ---
Date of Consultation April 10, 2021 Assessment & Plan (1) PEG tube malfunction: After discussing several options, he has agreed to have the tube removed with sedation. Hopefully we can simply pull out the old tube and replace in the OR tomorrow. He prefers not to use the tube for feeding at this time but would consider it later if needed. Supervising Physician Co-Signing Physician Notes Patient seen and examined, imaging reviewed, agree with above. 70-year-old male history of head neck cancer and radiation with PEG tube has been in place for quite some time. Several years ago it broke and was leaking and he placed a bolt into the lumen of the tube. He is now here for cachexia, failure to thrive, and chest wall growth likely recurrence of his cancer. He is not sure if he will want to use tube feeds again, however GIs been consulted for PEG tube and he was unable to have it replaced. On exam he is cachectic, afebrile with stable vitals. He has what appears to be a fracture G-tube in place with a bolt extruding from the lumen. On imaging the tube goes into the stomach and either the bumper or balloon is present within the lumen of the stomach. After discussion of the options with the patient, he elects for attempted exchange of the G-tube under sedation. Plan for gastrostomy tube removal and replacement under sedation tomorrow in the operating room N.p.o. after midnight Rest of the procedure were discussed to include but not limited to bleeding, infection, failure to remove, G-tube fracture, need for future more extensive surgeries or procedures, and the risk of anesthesia He understands a tomorrow will just be an attempt to exchange the tube, if we are unsuccessful he may require surgery to remove it or possibly endoscopy. History of Present Illness Attending Physician: Magalis Johnson MD History of Present Illness 70 y/o male with h/o tongue cancer approx 15 years ago had PEG tube at that time that remains in place, at some point years ago was leaking/broke and he plugged this with a bolt. He is now admitted for failure to thrive at home with enl arging chest wall mass and pain, newly diagnosed metastatic squamous cell carcinoma. He has been reluctant to have the tube removed, and is fearful of anesthesia after a relative suffered a perioperative stroke after cholecystectomy. Allergies Allergy/AdvReac Type Severity Reaction Status Date / Time No Known Allergies Allergy Unverified 04/07/21 13:59 Home Medications Medication Instructions Recorded Confirmed Type lisinopril 10 mg PO QAM 04/07/21 04/07/21 History Patient History Medical History Cachexia Palliative care encounter Throat cancer Weakness Family History Other Diabetes Social History Smoking Status: Never smoker Second Hand Exposure: No; Do You Dip or Chew Tobacco: No; Hx Alcohol Use: No Hx Substance Use: No Preferred Language: Irish Communication Ability: Effective Car Top Bolter Required: No Beliefs That Will Affect Care: None Current Living Situation: Alone Other Information That Helps Us Care for You: No Feels Safe at Home: Yes Safety Concerns: Feels Safe At This Time Assistive Devices: None Review of Systems Constitutional: + weight loss; no fever and no chills Physical Exam Constitutional: + malnourished and + underweight Gastrointestinal (Abdomen): Percussion/Palpation: abdomen soft about 2 inch portion of PEG remains with skin bumper and a bolt wedged in the lumen, freely mobile and no surrounding skin changes Results & Data ([facility]) Vital Signs (Past 12 Hours) Vital Signs Temp Pulse Resp BP Pulse Ox 04/10/21 08:48 36.7 C 65 18 126/65 96 04/10/21 00:01 36.8 C 70 17 129/70 96 PG Care Time/CCT Total # of Minutes Spent Total Time Spent with Patient: Total time spent is greater than 50% in coordination of care (as documented) at patient's floor/unit and/or counseling patient: Coding Level of Care Code 29717 Initial Inpt Care Lvl 1 Diagnoses PEG tube malfunction K94.23
[2021-04-10] MEDS: ENOXAPARIN INJ 30 MG/0.3 ML SYR SQ SCH (16:51)
--- NOTE | 2021-04-10 17:47 | Anesthesiology Consultation ---
Date of Service April 10, 2021 Assessment & Plan Chart Review Chart Review: Acceptable Risk for Surgery and Patient NOT seen in Pre Admission Testing Consults Requested none ASA ASA4 Proposed Anesthesia Anesthesia Type: MAC History Surgery Operation Date: 04/11/21 08:50 Proposed Procedures p Gastrostomy Tube Removal - Benoit Garland, , FACS Height/Weight Height: 5 ft 8 in Weight: 47.627 kg Allergies Allergy/AdvReac Type Severity Reaction Status Date / Time No Known Allergies Allergy Unverified 04/07/21 13:59 Medications Home Medications Medication Instructions Recorded Confirmed Last Taken lisinopril 10 mg PO QAM 04/07/21 04/07/21 04/06/21 Active Medications Generic Name Dose Route Start Last Admin Trade Name Freq PRN Reason Stop Dose Admin Enoxaparin Sodium 30 mg 04/07/21 19:00 04/10/21 16:51 Enoxaparin Inj 30 Mg/0.3 Ml Syr SQ 05/07/21 18:59 Not Given Q24H CESILIA Folic Acid 1 mg 04/10/21 09:00 04/10/21 09:31 Folic Acid 1 Mg Tab PO 05/10/21 08:59 1 mg QAM CESILIA Administration Thiamine HCl 100 mg/ Syringe 10 mls @ 2 mls/min 04/08/21 12:45 04/10/21 07:28 IV 05/08/21 12:44 2 mls/min QAM CESILIA Administration Potassium Chloride/Sodium Chloride 20 meq in 1,000 mls @ 100 mls/hr 04/09/21 12:45 04/10/21 16:18 Normal Saline W/20 Meq Kcl IV 05/09/21 12:44 100 mls/hr .Q10H CESILIA Administration Iron Sucrose 300 mg/ Sodium 265 mls @ 176.667 mls/hr 04/10/21 09:00 04/10/21 11:11 Chloride IV 04/12/21 08:59 Infused DAILY CESILIA Infusion Morphine Sulfate 5 mg 04/07/21 18:17 04/10/21 17:45 Morphine Sulfate 5 Mg/0.25 Ml Udp PO 04/21/21 18:16 5 mg Q4 PRN Administration Pain Morphine Sulfate 4 mg 04/07/21 18:17 04/10/21 12:41 Morphine Sulfate 4 Mg/Ml 1 Ml Carp\Vial IV 04/21/21 18:16 4 mg Q4 PRN Administration Pain Multivitamins/Minerals 15 ml 04/08/21 12:45 04/10/21 07:28 Multi Vit W/Minerals Liquid 15 Ml Udp PO 05/08/21 12:44 15 ml QAM CESILIA Administration Polyethylene Glycol 17 gm 04/08/21 16:15 04/10/21 07:28 Polyethylene (Miralax) 17 Gm Pack PO 05/08/21 16:14 17 gm DAILY CESILIA Administration Past Medical History Medical History Cachexia Palliative care encounter Throat cancer Weakness Exercise / Class Metabolic Activity III < 4 Walking/Shop/Light housework Past Family History Family History Other Diabetes Past Anesthesia History No Hx of Anesthesia Complications and No Family Hx of Anesthesia Complications History of PONV No Hx of PONV and No Hx of Motion Sickness Social History Smoking Status: Never smoker Do You Dip or Chew Tobacco: No Hx Alcohol Use: No Hx Substance Use: No substance use type: does not use Physical Exam Vital Signs Last Vital Signs Temp 36.8 C 04/10/21 17:33 Pulse 78 04/10/21 17:33 Resp 18 04/10/21 17:33 BP 134/74 04/10/21 17:33 Pulse Ox 95 04/10/21 17:33 Testing Laboratory Results 04/10/21 06:13 04/10/21 06:13 Urine Color Yellow 04/08/21 18:25 Urine Appearance Clear (Clear) 04/08/21 18:25 Urine pH 6.5 (4.5-7.5) 04/08/21 18:25 Ur Specific [place] 1.012 (1.000-1.030) 04/08/21 18:25 Urine Protein Negative (Negative) 04/08/21 18:25 Urine Glucose (UA) Negative (Negative) 04/08/21 18:25 Urine Ketones Negative (Negative) 04/08/21 18:25 Urine Nitrite Negative (Negative) 04/08/21 18:25 Ur Leukocyte Esterase Negative (Negative) 04/08/21 18:25 Electrocardiogram Date: 04/07/21 Findings: + NSR @ (at 85;LAD;) and + CA (? anteroseptal;age?)
[2021-04-10] MEDS: DICLOFENAC SOD 1% GEL 100 GM TUBE EXT SCH (20:50)
[2021-04-11] MEDS: MoRPHine SULFATE 4 MG/ML 1 ML CARP\\VIAL IV PRN ×2 (00:35→06:29)
[2021-04-11 06:21] LABS: Hematocrit (blood only) 29.6 % (42-52); Hemoglobin 9.8 g/dL (14.0-18.0); Mean Corpuscular Hgb Conc 33.1 g/dL (32-36); Mean Corpuscular Volume 96.7 fL (80-100); Mean Platelet Volume 9.4 fL (7.4-10.4); Platelet Count 246 K/uL (130-400); RDW Standard Deviation 49.9 fL (36.4-46.3); Red Blood Count 3.06 M/uL (4.7-6.1); White Blood Count 9.73 K/uL (4.8-10.8)
[2021-04-11] MEDS: NSS + 20MEQ KCL 20 MEQ/1,000 ML BAG IV SCH (06:30)
[2021-04-11 07:04] LABS: BUN Creatinine Ratio 13.3 (10-20); Calcium 8.9 mg/dl (8.5-10.1); Est GFR (African American) 113.7 ml/min; Est GFR (Non-African American) 98.1 ml/min; Magnesium 1.8 mg/dl (1.8-2.4); Potassium 3.8 mmol/L (3.5-5.1)
[2021-04-11] MEDS: DICLOFENAC SOD 1% GEL 100 GM TUBE EXT SCH ×4 (07:25→21:00)
[2021-04-11] MEDS: FOLIC ACID 1 MG TAB PO SCH (07:26)
[2021-04-11] MEDS: MULTI VIT W/MINERALS LIQUID 15 ML UDP PO SCH (07:26)
[2021-04-11] MEDS: POLYETHYLENE (MIRALAX) 17 GM PACK PO SCH (07:27)
[2021-04-11] MEDS: THIAMINE HCL 100 MG in SYRINGE 9 ML IV SCH (07:27)
[2021-04-11] MEDS: IRON SUCROSE 300 MG in SODIUM CHLORIDE 0.9% 250 ML IV SCH (07:31)
[2021-04-11] MEDS ORDERED: POTASSIUM PHOS 3 MMOL/1 ML INFUSION IV STA (08:24)
--- NOTE | 2021-04-11 08:25 | Hospitalist Progress Note ---
Date of Service April 11, 2021 Assessment & Plan (1) Chest wall mass: Malignantquestion will be whether or not it is a recurrence of his prior throat cancer (15-16 yrs ago s/p chemo/XRT [place]), versus a different primary malignancy. Either way the overall appearance is extremely worrisome prognostically. Discussed this with the patient frankly and openly. He is well aware that it may be something not very amenable to treatment. CT chest * 1. Large destructive infiltrative mass centered within the anterior right upper chest wall which results in erosion of the manubrium, undersurface of the proximal right clavicle and the anterior right first and second ribs. This extends into the right upper lobe and invades the mediastinum. This is consistent with a neoplasm and may reflect a lung malignancy invading the chest wall. A chondrosarcoma is also within the differential given the CT appearance. Tissue sampling is recommended. * 2. Irregular 3.5 x 3.1 cm left upper lobe mass. The appearance favors a primary lung malignancy although metastatic disease could appear similar. * 3. Spiculated 1.4 cm right middle lobe nodule also consistent with a neoplastic process. * 4. Small left pleural effusion. * 5. Bilateral upper lobe volume loss. CTA/P suboptimal and no use of contrast. No obstruction, stool noted. (miralax prn, dulcolax NC prn) No CT Head obtained. Did have discussion about outpatient PET scan Oncology consulted -- will arrange for chemo s/p FNA on 04/08 * FINAL DIAGNOSIS: * Mediastinum, sternal mass, ultrasound-guided fine needle aspiration: Squamous cell carcinoma (see comment) * Comment: The history of a head and neck tumor combined with intensely positive p16 staining is highly suggestive of a head and neck primary site. Primary lung squamous cell carcinomas can occasionally show p16 staining, though this is much less common. Clinical correlation required. 04/11 OR this morning for PEG exchange with Dr. Gill azar and inability to be addressed by GI/other surgeon Tolerated well Pain controlled -- asked RN to use oral Roxanol as needed to avoid IV. Patient states it is bitey but works well. Plan for oxycodone syrup at discharge as this has worked best for him in the past Will d/c IVF today Venofer -- second dose today. Folate PO but will order IV while inpatient for folate <3. B12 wnl [employer] Worker on consult -- getting IV thiamine to avoid refeeding syndrome in addition to Cerovite Phos low and continued IV replacement Calcium stable Reported no BM "in 2 weeks" but does admit to having continued BMs Will have radiation/chemo arranged at d/c to begin treatment Of note, Lisinopril held -- 10mg daily IT APPLICATIONS ANALYST. Consider decreasing dose to 5mg daily vs low dose BB to prevent worsening dehydration (2) Anemia: Normocytic- likely relates to malnutrition and overall clinical situation Iron studies low iron 28, TIBC 192, transferrin 139L, transferrin % sat 14%L Hgb 11.6 on admission --> 9.5 but improved to 9.8 today despite IVF which will be discontinued today Got Venofer x 1, repeat dose today Will give third dose tomorrow B12 wnl, Folate <3.0 CBC in AM (3) Hypercalcemia: Almost certainly from bony erosion. Ca improving --> 8.9 from 11.4. Albumin 2.5 and corrected now wnl PTH <6.7 , appropriately low given elevated Ca IVF now discontinued Vit D low normal 36.7 Suspect 2nd to malignancy/bony invasion Monitor (4) Dehydration: Improved IVF d/c today Continue to monitor (5) Severe malnutrition: Severe protein-calorie malnutrition in setting of cancer -- PEG tube site has been in place for about 15 or 16 years, and so hopefully the tract is still viable for use. 70-year-old male who is been found to have a widely metastatic squamous cell carcinoma. Per EMR this patient is cachectic, weak, and has malnutrition, unspecified. A registered dietitian consult does further define this patient as having severe malnutrition. Unfortunately, coders cannot code from registered dietitian assessment notes. This diagnosis must be stated by the attending physician. UBW ~ 120# x 6 mos ago; current wt in EMR 105#; 15# wt loss in 6 mos (12.5%, significant & unintentional); BMI 16.0 (underweight) Severe loss of muscle mass seen in the temples & clavicle bone region Severe Malnutrition (E43) PEG tube replacement as above Nutritional supplements, Folate, Venofer (6) Throat cancer: See above, the main concern of course would be a recurrence of his primary throat cancer Pathology as above (7) DVT prophylaxis: Lovenox on hold for OR today Consider Xarelto at d/c given ca? (8) Discharge planning issues: PT/OT eval and treat -- recs for return home when medically stable Seen by palliative care - code status changed to DNR. Service [facility] consulted for POA/advance directive paperwork POA: Health Care Agent: Mali Dooley, cell: [phone] (Significant Other) First Alternative Health Care Agent: Bryce Nance, cell: [phone] (Brother) Second Alternative Health Care Agent: Saqib Nance, cell: [phone] (Brother) Part II: Living Will (Patient Chose not to complete this section and marked where his agents can use his instructions as only guidance and make the final decisions related to his medical care) He does not consent to organ donation Dispo: continued inpatient stay possible d/c tomorrow Admission and Anticipated Discharge Date Admission Date: April 07, 2021 Supervising Physician Co-Signing Physician Notes PA Supervision Note: I did not personally see or examine the patient today, but I verified all lynn points of KATIE Pham's assessment and plan with the following exceptions/additions: None Subjective Patient evaluated around lunch following PEG tube replacement. Pain controlled, feeling well. Pain to clavicle and anterior chest -- controlled with ordered medications. Mouth dry and requesting cup of water to wet mouth. Needs a spitter as well -- always uses at home. The folic acid "was a little bitey" this morning and likely he would not be able to tolerate this at home unless he owens it down a little more. Roxanol effective but also needing diluted a little due to burning. Did not want to try lidocaine for some numbing to see if this would help. Oxycodone liquid at discharge has least burning side effects and discussed we can try this at discharge. No fever, chills, shortness of breath, abdominal pain, nausea, vomiting at this time. Very happy with care receiving here and could potentially go home tomorrow evening if symptoms controlled and feeling well. He notes already feeling stronger and "bulking up" Will d/c fluids and see if he can keep up with oral intake. Review of Systems Review of Systems: All systems reviewed & are unremarkable except as noted in HPI & below Physical Exam Constitutional: + thin, + cachectic, cooperative and comfortable (sitting up in bed eating lunch); no acute distress Eyes: + anicteric sclerae and PERRL Neck: trachea midline Respiratory: normal respiratory effort; no labored breathing, no cough and not tachypneic Auscultation: + diminished lung sounds; no crackles, no rales and no wheezes Cardiovascular: RRR, no murmur, no edema Gastrointestinal (Abdomen): Inspection/Auscultation: normal bowel sounds Percussion/Palpation: abdomen soft (scaphoid); abdomen nontender, no guarding and abdomen not rigid new PEG with clamp, minimal blood noted on 4x4 Musculoskeletal: Head/Neck/Chest: normocephalic and head atraumatic Skin: cool, dry Neurologic: PERRL, EOMI, accommodation nl, no face palsy, no dysarthria Psychiatric: Orientation: alert and oriented x 3 Results & Data Results & Data ([facility]) Vital Signs (Past 12 Hours) Vital Signs Temp Pulse Pulse Resp BP Pulse Ox 04/11/21 07:08 36.8 C 70 16 144/74 H 94 04/10/21 23:00 36.8 C 73 18 129/84 95 Laboratory Results 04/11/21 04/11/21 Range/Units 06:07 06:07 WBC 9.73 (4.8-10.8) K/uL RBC 3.06 L (4.7-6.1) M/uL Hgb 9.8 L (14.0-18.0) g/dL Hct 29.6 L (42-52) % MCV 96.7 (80-100) fL MCH 32.0 (25-34) pg MCHC 33.1 (32-36) g/dL RDW Std Deviation 49.9 H (36.4-46.3) fL RDW Coeff of [place] 14.0 (11.5-14.5) % Plt Count 246 (130-400) K/uL MPV 9.4 (7.4-10.4) fL Sodium 137 (136-145) mmol/L Potassium 3.8 (3.5-5.1) mmol/L Chloride 106 (98-107) mmol/L Carbon Dioxide 25 (21-32) mmol/L Anion Gap 6.0 (3-11) BUN 9 (7-18) mg/dl Creatinine 0.68 (0.6-1.4) mg/dl Est Cr Clr Drug Dosing 70.0 ml/min Est GFR ( Amer) 113.7 ml/min Est GFR (Non-Af Amer) 98.1 ml/min BUN/Creatinine Ratio 13.3 (10-20) Glucose 91 (70-99) mg/dl Calcium 8.9 (8.5-10.1) mg/dl Phosphorus 2.0 L (2.5-4.9) mg/dl Magnesium 1.8 (1.8-2.4) mg/dl PG Care Time/CCT Total # of Minutes Spent Total Time Spent with Patient: Total time spent is greater than 50% in coordination of care (as documented) at patient's floor/unit and/or counseling patient: Coding Level of Care Code 34910 Subseq Hosp Care Lvl 3 Diagnoses Chest wall mass R22.2 Anemia D64.9 Anemia type: unspecified type Hypercalcemia E83.52 Dehydration E86.0 Severe malnutrition E43 Throat cancer C14.0 DVT prophylaxis Z29.9 Discharge planning issues Z02.9 (1) Anemia Anemia type: unspecified type Qualified Code(s): D64.9 - Anemia, unspecified
[2021-04-11] MEDS ORDERED: POTASSIUM PHOSPHATE 21 MMOL in SODIUM CHLORIDE 0.9% 500 ML IV ONE (08:45)
[2021-04-11] MEDS ORDERED: LABETALOL HCL IV 5 MG/ML 20ML IV PRN (08:48)
[2021-04-11] MEDS ORDERED: ATROPINE SULFATE 0.1 MG/ML 10ML SYR IV PRN (08:48)
[2021-04-11] MEDS ORDERED: ONDANSETRON INJ 2 MG/ML 2 ML VIAL IV PRN (08:48)
[2021-04-11] MEDS ORDERED: fentaNYL citrate 100 MCG/2 ML VIAL IV PRN (08:48)
--- NOTE | 2021-04-11 08:59 | Surgery Progress Note ---
Date of Service April 11, 2021 Assessment & Plan (1) PEG tube malfunction: 70-year-old male with PEG tube in place that is not been functioning for several years, with need for access for feeding in the future secondary to head neck cancer. Plan for gastrostomy tube removal and replacement in the operating room The risks are reviewed Plan was discussed the patient, all questions were answered, the patient expressed understanding agrees the plan of care as stated Admission and Anticipated Discharge Date Admission Date: April 07, 2021 Subjective 70-year-old male with recurrence of head neck cancer in need for feeding tube access with broken PEG tube in place with bolt capping the end. No changes since yesterday. He has been n.p.o. Physical Exam Constitutional: + cachectic; no acute distress Gastrointestinal (Abdomen): normal bowel sounds, soft, nontender, no hepatosplenomegaly Gastrostomy tube in place with bolt capping the end Results & Data ([facility]) Vital Signs (Past 12 Hours) Vital Signs Temp Pulse Pulse Resp BP Pulse Ox 04/11/21 08:36 36.8 C 77 18 159/86 H 95 04/11/21 07:08 36.8 C 70 16 144/74 H 94 04/10/21 23:00 36.8 C 73 18 129/84 95 PG Care Time/CCT Total # of Minutes Spent Total Time Spent with Patient: Total time spent is greater than 50% in coordination of care (as documented) at patient's floor/unit and/or counseling patient: Coding Level of Care Code 69302 Inpt Consult Level 2 Diagnoses PEG tube malfunction K94.23
[2021-04-11] MEDS ORDERED: ONDANSETRON INJ 2 MG/ML 2 ML VIAL ONE (09:01)
[2021-04-11] MEDS ORDERED: LIDOCAINE 2% 2 ML VIAL/AMP(20MG/ML) INFIL ONE (09:01)
[2021-04-11] MEDS ORDERED: PROPOFOL IV EMULSION 10 MG/ML 20 ML VIAL IV ONE (09:01)
[2021-04-11] MEDS ORDERED: MIDAZOLAM HCL 1 MG/ML 2ML VIAL ONE (09:01)
[2021-04-11] MEDS ORDERED: fentaNYL citrate 100 MCG/2 ML VIAL ONE (09:01)
[2021-04-11] MEDS ORDERED: bisacodyL 10 MG SUPP PR STA (09:32)
--- NOTE | 2021-04-11 10:00 | Operative Report ---
PG Post Operative Report Pre & Post Diagnosis Operation Date: 04/11/21 08:50 Preop diagnosis: Gastrostomy tube malfunction Postop diagnosis: Gastrostomy tube malfunction I identified the patient and participated in the time-out.: Yes Procedure Operation Date: 04/11/21 08:50 Operation performed: Gastrostomy tube exchange under anesthesia Surgeon Benoit Garland DO, FACS [employer] [place] Estimated Blood Loss 1 Findings Consistent with Post-Op Diagnosis Old gastrostomy tube removed with bumper intact, 24 Swedish low-profile Scot tube placed. Draws and flushes easily with gastric contents. Specimens Malfunctioning G-tube Anesthesia Type MAC Complications none Disposition Accompanied Patient To Recovery: No Disposition: Recovery Room Indications 70-year-old male with recurrence of head neck cancer and gastrostomy tube in place now with malfunctioning gastrostomy tube and need for enteral access for feeding. Plan for gastrostomy tube removal and replacement under anesthesia. The risks of the procedure were discussed, all questions were answered, and the patient agreed to proceed with surgery as planned. Description of Procedure The patient was appropriate identified, consented, and taken to the operating room where he was placed in the supine position. Monitored anesthesia care with sedation was administered. Patient's abdomen was prepped and draped in the standard sterile fashion. Surgical timeout was performed all parties were in agreement as the correct patient and procedure to be performed we continued as planned. The G-tube was examined and using gentle traction we attempted to remove it. It did fracture above the level of the skin. This was then grasped with a tonsil and we continued with gentle traction. A Alexandra was used to gently dilate the tract to allow for removal of the bumper. The tube and bumper were removed intact. A 24 Swedish low-profile Scot tube was then placed through the existing gastrocutaneous fistula. The balloon was inflated with 7 cc of air. We were able to aspirate gastric contents and flush the tube easily. A drain sp onge was placed. Anesthesia was ceased the patient was taken to recovery where he recovered without apparent incident. All sponge, needle, and instrument counts were correct inclusion procedure. Patient tolerated procedure well. The physician's medical library assistant was present and scrubbed for the entire the case. He was critical in positioning the patient, prepping and draping, retraction and exposure, removal and replacement of the gastrostomy tube, and placement of the dressings. I attest to the content of the Intraoperative Record and any orders documented therein. Any exceptions are noted below.
--- NOTE | 2021-04-11 10:46 | Anesthesiology Progress Note ---
Date of Service April 11, 2021 Anesthesia Post Procedure Vital Signs Vital Signs: Temp Pulse Pulse Pulse Resp BP Pulse Ox 04/11/21 10:20 69 10 L 121/75 98 04/11/21 10:10 68 12 109/57 L 97 04/11/21 10:00 36.5 C 69 12 100/55 L 95 04/11/21 08:36 36.8 C 77 18 159/86 H 95 04/11/21 07:08 36.8 C 70 16 144/74 H 94 04/10/21 23:00 36.8 C 73 18 129/84 95 04/10/21 17:33 36.8 C 78 18 134/74 95 Pain Intensity Upper Chest: Pain Intensity: 7 Transfer of Care Handoff Completed per policy Notes Mental Status: alert / awake / arousable Patient Amnestic to Procedure: Yes Nausea / Vomiting: adequately controlled Pain: adequately controlled Airway Patency, RR, SpO2: stable & adequate BP & HR: stable & adequate Hydration State: stable & adequate Anesthetic Complications: no major complications apparent
--- NOTE | 2021-04-11 12:38 | XRay Report ---
KUB CLINICAL HISTORY: Constipation. FINDINGS: 2 AP, portable, supine abdominal radiographs are correlated with abdominal CT dated 04/07/20 21. There is no radiographic evidence of bowel obstruction. Severe constipation is noted throughout t he colon. No evidence of intraperitoneal free air is seen on these supine views. A gastrostomy tube i s noted in the left upper quadrant. There are no abnormal abdominal calcifications. The bony structur es appear intact. IMPRESSION: Severe constipation. Electronically signed by: Cyril Mike M.D. 04/11/2021 12:37 PM
[2021-04-11] MEDS: FOLIC ACID 1 MG in SYRINGE 9.8 ML IV SCH (14:00)
[2021-04-11] MEDS: MAGNESIUM SULFATE / D5W 1 GM/100 ML BAG IV SCH ×2 (14:08→15:32)
[2021-04-11] MEDS: MoRPHine SULFATE 10 MG/0.5 ML UDP PO PRN ×2 (15:32→19:30)
[2021-04-12] MEDS: MoRPHine SULFATE 10 MG/0.5 ML UDP PO PRN ×3 (00:37→14:21)
[2021-04-12 04:06] VITALS: TEMP 98.1
[2021-04-12 06:32] LABS: Basophils # (auto) 0.02 K/uL (0-0.2); Basophils % (auto) 0.2 %; Eosinophils # (auto) 0.09 K/uL (0-0.5); Eosinophils % (auto) 1.1 %; Hematocrit (blood only) 26.8 % (42-52); Hemoglobin 8.9 g/dL (14.0-18.0); Immature Granulocytes # (auto) 0.03 K/uL (0.00-0.02); Immature Granulocytes % (auto) 0.4 %; Lymphocytes # (auto) 0.59 K/uL (1.2-3.4); Mean Corpuscular Hemoglobin 31.9 pg (25-34); Mean Corpuscular Hgb Conc 33.2 g/dL (32-36); Mean Corpuscular Volume 96.1 fL (80-100); Mean Platelet Volume 9.8 fL (7.4-10.4); Monocytes # (auto) 0.49 K/uL (0.11-0.59); Monocytes % (auto) 5.8 %; Neutrophils % (auto) 85.5 %; Platelet Count 240 K/uL (130-400); RDW Coefficient of Variation 13.8 % (11.5-14.5); RDW Standard Deviation 48.5 fL (36.4-46.3); Red Blood Count 2.79 M/uL (4.7-6.1); White Blood Count 8.42 K/uL (4.8-10.8)
[2021-04-12 06:57] LABS: Albumin Level 2.3 gm/dl (3.4-5.0); BUN Creatinine Ratio 12.2 (10-20); Calcium 8.5 mg/dl (8.5-10.1); Creatinine Clr Calc Pharmacy 79.4 ml/min; Est GFR (African American) 119.7 ml/min; Est GFR (Non-African American) 103.3 ml/min; Magnesium 1.9 mg/dl (1.8-2.4); Phosphorus 2.1 mg/dl (2.5-4.9); Potassium 3.6 mmol/L (3.5-5.1)
[2021-04-12 06:58] LABS: Albumin Globulin Ratio 0.7 (0.9-2); Bilirubin,Total 0.4 mg/dl (0.2-1); Globulin 3.1 gm/dl (2.5-4.0); Total Protein 5.4 gm/dl (6.4-8.2)
[2021-04-12 07:26] VITALS: BP 152/86; PULSE 74; O2SAT 91
[2021-04-12] MEDS: DICLOFENAC SOD 1% GEL 100 GM TUBE EXT SCH ×2 (07:55→12:50)
[2021-04-12] MEDS: MULTI VIT W/MINERALS LIQUID 15 ML UDP PO SCH (07:55)
[2021-04-12] MEDS: POLYETHYLENE (MIRALAX) 17 GM PACK PO SCH (07:56)
[2021-04-12] MEDS: THIAMINE HCL 100 MG in SYRINGE 9 ML IV SCH (07:56)
[2021-04-12] MEDS: FOLIC ACID 1 MG in SYRINGE 9.8 ML IV SCH (07:56)
--- NOTE | 2021-04-12 08:38 | Progress Notes ---
MEDICAL ONCOLOGY PROGRESS NOTE DATE: 04/12/2021. DIAGNOSES: 1. 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 2. Status post replacement of PEG tube. 3. Anemia. 4. Hypercalcemia. 5. Protein malnutrition. SUBJECTIVE: Yuval was seen and examined at bedside. Very happy he had his PEG tube exchanged out as this will be necessary to maintain nutritional support if he chooses to receive salvage chemotherapy. Discussed the need for MediPort to be placed as most of the salvage regimens for his type of cancer require continuous infusion and thus would be prudent to have a device installed. The patient flaquito nues to ybarra with some pain issues, which seem to be relatively well controlled. According to the hospitalist service, Yuval is close to being discharged home. We will plan to see him in the office i n the next week or two to establish plans for salvage chemotherapy. OBJECTIVE: GENERAL: A very pleasant 70-year-old gentleman in no acute distress. VITAL SIGNS: Temperature 36.7, pulse 74, respiratory rate 16, blood pressure 152/86. SKIN: Without rash or lesion. HEENT: He is edentulous. Buccal mucosa without erythema or ulceration. HEART: Regular rate and rhythm. LUNGS: Clear to auscultation bilaterally. ABDOMEN: PEG site looks good. Soft, nontender, nondistended. EXTREMITIES: No clubbing, cyanosis, or edema. NEUROLOGIC: He is grossly intact. LABORATORY DATA: WBC count 8420, hemoglobin 8.9, platelet count 240,000. Sodium 136, potassium 3.6, chloride 102, carbon dioxide 27, BUN is 7, creatinine 0.6, phosphorus 2.1, total protein 5.4, albumi n 2.3. IMPRESSION: 1. 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 2. Protein malnutrition. 3. Status post PEG tube exchange. 4. Hypoalbuminemia. PLAN: I purposely went up to talk to Yuval to discuss his status. Unfortunately, he suffers from sta ge IV disease and his only option moving forward is salvage chemotherapy. Most of the regimens for m etastatic squamous cell carcinoma involve continuous 5-FU. Because of his nutritional status, he jody l require enteral feeding and would like a nutritional consult prior to discharge and perhaps plan fo r MediPort insertion as an outpatient. I will plan to see Yuval sometime in the next week or two. We will also make arrangements for Yuval to meet with chemotherapy nurses once a regimen is decided upon . I would send him home with adequate p.r.n. opioids. We will take over pain management once he est ablishes care at [facility]. Thank you very much for allowing me to participate in his care. Job ID: [id number]
--- NOTE | 2021-04-12 09:14 | Hospitalist Progress Note ---
Date of Service April 12, 2021 Assessment & Plan (1) Chest wall mass: Malignantquestion will be whether or not it is a recurrence of his prior throat cancer (15-16 yrs ago s/p chemo/XRT [place]), versus a different primary malignancy. Either way the overall appearance is extremely worrisome prognostically. Discussed this with the patient frankly and openly. He is well aware that it may be something not very amenable to treatment. CT chest * 1. Large destructive infiltrative mass centered within the anterior right upper chest wall which results in erosion of the manubrium, undersurface of the proximal right clavicle and the anterior right first and second ribs. This extends into the right upper lobe and invades the mediastinum. This is consistent with a neoplasm and may reflect a lung malignancy invading the chest wall. A chondrosarcoma is also within the differential given the CT appearance. Tissue sampling is recommended. * 2. Irregular 3.5 x 3.1 cm left upper lobe mass. The appearance favors a primary lung malignancy although metastatic disease could appear similar. * 3. Spiculated 1.4 cm right middle lobe nodule also consistent with a neoplastic process. * 4. Small left pleural effusion. * 5. Bilateral upper lobe volume loss. CTA/P suboptimal and no use of contrast. No obstruction, stool noted. (miralax prn, dulcolax [place] prn) No CT Head obtained. Did have discussion about outpatient PET scan Oncology consulted -- will arrange for chemo s/p FNA on 04/08 * FINAL DIAGNOSIS: * Mediastinum, sternal mass, ultrasound-guided fine needle aspiration: Squamous cell carcinoma (see comment) * Comment: The history of a head and neck tumor combined with intensely positive p16 staining is highly suggestive of a head and neck primary site. Primary lung squamous cell carcinomas can occasionally show p16 staining, though this is much less common. Clinical correlation required. 04/11 OR this morning for PEG exchange with Dr. Gill azar and inability to be addressed by GI/other surgeon Tolerated well Pain controlled -- asked RN to use oral Roxanol as needed to avoid IV. Patient states it is bitey but works well. Plan for oxycodone syrup at discharge as this has worked best for him in the past Will d/c IVF today Venofer -- second dose today. Folate PO but will order IV while inpatient for folate <3. B12 wnl Orientation And Mobility Instructor on consult -- getting IV thiamine to avoid refeeding syndrome in addition to Cerovite Phos low and continued IV replacement Calcium stable Reported no BM "in 2 weeks" but does admit to having continued BMs Will have radiation/chemo arranged at d/c to begin treatment Of note, Lisinopril held -- 10mg daily [employer]. Consider decreasing dose to 5mg daily vs low dose BB to prevent worsening dehydration (2) Anemia: Normocytic- likely relates to malnutrition and overall clinical situation Iron studies low iron 28, TIBC 192, transferrin 139L, transferrin % sat 14%L Hgb 11.6 on admission --> 9.5 but improved to 9.8 today despite IVF which will be discontinued today Got Venofer x 1, repeat dose today Will give third dose tomorrow B12 wnl, Folate <3.0 CBC in AM (3) Hypercalcemia: Almost certainly from bony erosion. Ca improving --> 8.9 from 11.4. Albumin 2.5 and corrected now wnl PTH <6.7 , appropriately low given elevated Ca IVF now discontinued Vit D low normal 36.7 Suspect 2nd to malignancy/bony invasion Monitor (4) Dehydration: Improved IVF d/c today Continue to monitor (5) Severe malnutrition: Severe protein-calorie malnutrition in setting of cancer -- PEG tube site has been in place for about 15 or 16 years, and so hopefully the tract is still viable for use. 70-year-old male who is been found to have a widely metastatic squamous cell carcinoma. Per EMR this patient is cachectic, weak, and has malnutrition, unspecified. A registered dietitian consult does further define this patient as having severe malnutrition. Unfortunately, coders cannot code from registered dietitian assessment notes. This diagnosis must be stated by the attending physician. UBW ~ 120# x 6 mos ago; current wt in EMR 105#; 15# wt loss in 6 mos (12.5%, significant & unintentional); BMI 16.0 (underweight) Severe loss of muscle mass seen in the temples & clavicle bone region Severe Malnutrition (E43) PEG tube replacement as above Nutritional supplements, Folate, Venofer (6) Throat cancer: See above, the main concern of course would be a recurrence of his primary throat cancer Pathology as above (7) DVT prophylaxis: Lovenox on hold for OR today Consider Xarelto at d/c given ca? (8) Discharge planning issues: PT/OT eval and treat -- recs for return home when medically stable Seen by palliative care - code status changed to DNR. Service [facility] consulted for POA/advance directive paperwork POA: Health Care Agent: Mali Dooley, cell: [phone] (Significant Other) First Alternative Health Care Agent: Bryce Nance, cell: [phone] (Brother) Second Alternative Health Care Agent: Saqib Nance, cell: [phone] (Brother) Part II: Living Will (Patient Chose not to complete this section and marked where his agents can use his instructions as only guidance and make the final decisions related to his medical care) He does not consent to organ donation Dispo: continued inpatient stay possible d/c tomorrow Admission and Anticipated Discharge Date Admission Date: April 07, 2021 Physical Exam Constitutional: + thin, + cachectic, cooperative and comfortable (sitting up in bed eating lunch); no acute distress Eyes: + anicteric sclerae and PERRL Neck: trachea midline Respiratory: normal respiratory effort, lungs clear to auscultation normal respiratory effort; no labored breathing, no cough and not tachypneic Auscultation: + diminished lung sounds; no crackles, no rales and no wheezes Cardiovascular: RRR, no murmur, no edema Gastrointestinal (Abdomen): Inspection/Auscultation: normal bowel sounds Percussion/Palpation: abdomen soft (scaphoid); abdomen nontender, no guarding and abdomen not rigid Musculoskeletal: Head/Neck/Chest: normocephalic and head atraumatic Neurologic: PERRL, EOMI, accommodation nl, no face palsy, no dysarthria Psychiatric: Orientation: alert and oriented x 3 Results & Data Results & Data ([facility]) Vital Signs (Past 12 Hours) Vital Signs Temp Pulse Resp BP Pulse Ox 04/12/21 07:26 36.7 C 74 16 152/86 H 91 04/12/21 03:58 36.7 C 88 16 133/81 96 04/11/21 22:34 37.0 C 87 16 159/82 H 96 Laboratory Results 04/12/21 04/12/21 Range/Units 05:51 05:51 WBC 8.42 (4.8-10.8) K/uL RBC 2.79 L (4.7-6.1) M/uL Hgb 8.9 L (14.0-18.0) g/dL Hct 26.8 L (42-52) % MCV 96.1 (80-100) fL MCH 31.9 (25-34) pg MCHC 33.2 (32-36) g/dL RDW Std Deviation 48.5 H (36.4-46.3) fL RDW Coeff of [place] 13.8 (11.5-14.5) % Plt Count 240 (130-400) K/uL MPV 9.8 (7.4-10.4) fL Immature Gran % (Auto) 0.4 % Neut % (Auto) 85.5 % Lymph % (Auto) 7.0 % Colbert % (Auto) 5.8 % Eos % (Auto) 1.1 % Baso % (Auto) 0.2 % Neut # (Auto) 7.20 H (1.4-6.5) K/uL Lymph # (Auto) 0.59 L (1.2-3.4) K/uL Colbert # (Auto) 0.49 (0.11-0.59) K/uL Eos # (Auto) 0.09 (0-0.5) K/uL Baso # (Auto) 0.02 (0-0.2) K/uL Immature Gran # (Auto) 0.03 H (0.00-0.02) K/uL Sodium 136 (136-145) mmol/L Potassium 3.6 (3.5-5.1) mmol/L Chloride 102 (98-107) mmol/L Carbon Dioxide 27 (21-32) mmol/L Anion Gap 7.0 (3-11) BUN 7 (7-18) mg/dl Creatinine 0.60 (0.6-1.4) mg/dl Est Cr Clr Drug Dosing 79.4 ml/min Est GFR ( Amer) 119.7 ml/min Est GFR (Non-Af Amer) 103.3 ml/min BUN/Creatinine Ratio 12.2 (10-20) Glucose 85 (70-99) mg/dl Calcium 8.5 (8.5-10.1) mg/dl Phosphorus 2.1 L (2.5-4.9) mg/dl Magnesium 1.9 (1.8-2.4) mg/dl Total Bilirubin 0.4 (0.2-1) mg/dl AST 19 (15-37) U/L ALT 8 L (12-78) U/L Alkaline Phosphatase 103 (45-117) U/L Total Protein 5.4 L (6.4-8.2) gm/dl Albumin 2.3 L (3.4-5.0) gm/dl Globulin 3.1 (2.5-4.0) gm/dl Albumin/Globulin Ratio 0.7 L (0.9-2) PG Care Time/CCT Total # of Minutes Spent Total Time Spent with Patient: Total time spent is greater than 50% in coordination of care (as documented) at patient's floor/unit and/or counseling patient: Coding Diagnoses Chest wall mass R22.2 Anemia D64.9 Anemia type: unspecified type Hypercalcemia E83.52 Dehydration E86.0 Severe malnutrition E43 Throat cancer C14.0 DVT prophylaxis Z29.9 Discharge planning issues Z02.9 (1) Anemia Anemia type: unspecified type Qualified Code(s): D64.9 - Anemia, unspecified
[2021-04-12] MEDS ORDERED: POTASSIUM PHOS 3 MMOL/1 ML INFUSION IV STA (09:15)
[2021-04-12] MEDS ORDERED: IRON SUCROSE 300 MG in SODIUM CHLORIDE 0.9% 250 ML IV ONE (10:00)
[2021-04-12] MEDS ORDERED: POTASSIUM PHOSPHATE 30 MMOL in SODIUM CHLORIDE 0.9% 500 ML IV ONE (10:00)
--- NOTE | 2021-04-12 12:10 | Discharge Summary ---
Date of Service April 12, 2021 Admission HPI Per Admitting Provider Patient is a very pleasant 70-year-old male who notes that he was in a good baseline state of health for quite a long time, until about the last 4 months. He started with a little bit of a lump on his chest wall, was paying attention to it but felt like it would probably go away, unfortunately it continued to grow. During that time he started to lose the ability to swallow, started losing weight (he was not really able to quantify exactly how much but it seems like a lot) and had progressively more pain. Finally over the last week or so, with an amalgamation of worsening pain, worsening failure to thrive/weakness, and growth of the mass, his brother was able to convince him to bring the issue up with his PCPwho ordered a CT scan. In between then and now, the patient's pain worsened and his ability to take care of himself at home worsened as welland they came to the ER. Here he was found to have worrisome findings on CT of a large mass eroding into his sternum, as well as several other (presumably satellite) lesions. He notes about 15 or 16 years ago he was diagnosed with tongue cancerthis was actually managed successfully with radiation and chemo at [facility]. During that time he had a PEG tube placed, and actually this year he was finally planning on getting around to having GI remove the PEG tube as he has not used it in years (it was leaking, and the tube had broken, and so he actually has it plugged with a rather large bolt). 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 He notes, however, that he is much weaker and frailer than when he went through cancer treatment before. He also notes he absolutely never smoked or chewed. As far as past medical history, he relates hypertensionand is on one medicine, although he was not quite sure what it was. He also notes that recently his PCP started him on liquid pain medicine, which he thought was probably oxycodone. I called his pharmacy to confirmhe is listed as being on 10 mg of lisinopril daily, 50 mg of atenolol daily, and oxycodone 5 mg every 6 hours as needed pain. Admission Exam Per Admitting Provider In general he is awake and alert pleasant no distress. He is very thin to cachectic appearing. HEENT normocephalic atraumatic mucous membranes somewhat dry. Cardio is regular without rubs murmurs or gallops. Lungs clear to auscultation bilaterally no rales rhonchi wheezes good effort. Abdomen is soft but scaphoid. There is a PEG tube site in place, with about a 3 inch bolt sticking out plugging the hole. No tenderness, no guarding, no rebound, no rigidity. Extremities show no cyanosis clubbing or edema (he notes a little bit of puffiness of the skin, although this is not manifest as clinically palpable edema). Musculoskeletal exam shows a degree of muscle wastingparticularly given how he describes himself before the last 4 months. There is a large probably 4 inch x 4 inch diameter oval quite palpable anterior chest wall mass. He also has a lot of telangiectasia and varicosities across his anterior chest wall. Skin shows those above findings, but no rashes, pallor, icterus. Neuro shows cranial nerves II through XII be grossly intact gross motor and sensory are intact. Mental status shows good recent and remote recall normal mood and affect good judgment and insight. Principal Diagnosis Anterior Chest Wall Mass, Squamous Cell Carcinoma, PEG tube replacement, Severe Malnourishment Discharge Exam Constitutional + thin, + cachectic, cooperative and comfortable (sitting up in bed eating lunch); no acute distress Eyes + anicteric sclerae and PERRL ENMT Ears: no hearing impairment Neck no tracheal deviation Respiratory normal respiratory effort; no respiratory distress, no labored breathing, no cough and not tachypneic Auscultation: + diminished lung sounds (bases); no crackles, no rales and no wheezes Cardiovascular Rate/Rhythm: regular rate and regular rhythm Heart Sounds: no murmur Extremities: + edema (b/l UE ) Chest (Breasts) Additional Comments: approximately [id number] mass to anterior R chest wall abutting clavicle with bony invasion non-tender to palpation, fixed Gastrointestinal (Abdomen) Inspection/Auscultation: normal bowel sounds Percussion/Palpation: abdomen soft (scaphoid); abdomen nontender, no guarding and abdomen not rigid PEG tube with scant blood noted on 4x4 Musculoskeletal Head/Neck/Chest: normocephalic and head atraumatic generalized muscle wasting Skin cool, dry Neurologic PERRL, EOMI, accommodation nl, no face palsy, no dysarthria Psychiatric Orientation: alert and oriented x 3 Genitourinary no holbrook Discharge Data Allergies Allergy/AdvReac Type Severity Reaction Status Date / Time No Known Allergies Allergy Verified 04/17/21 09:16 Consultations 04/07/21 13:18 ED Decision to Admit Stat 04/07/21 18:17 Consult Gastroenterology Routine Consult Oncology Routine Consult Radiation Oncology Routine 04/08/21 11:04 Consult Palliative Care Routine 04/09/21 16:28 Consult General Surgery Routine Procedures Performed Operation Date: 04/11/21 08:50 Actual Procedures p Gastrostomy Tube Replacement(Not Applicable) - Benoit Garland DO, FACS Ordered Studies Abdomen/Pelvis CT 04/07/21 10:31 CT OF THE ABDOMEN AND PELVIS WITHOUT CONTRAST CLINICAL HISTORY: Vomiting. Evaluate for obstruction. COMPARISON STUDY: No previous studies for comparison. TECHNIQUE: Axial images of the abdomen and pelvis were obtained without IV contrast. Images were reviewed in the axial, sagittal, and coronal planes. Automated exposure control was utilized for the study. A dose lowering technique was utilized adhering to the principles of ALARA. FINDINGS: Please note that the chest CT will be reported separately. A small left pleural effusion is noted. A small pericardial effusion is also present. Gastrostomy tube is in place. No pneumatosis, free air or portal venous gas is present. Evaluation of the abdomen and pelvis is significantly compromised given lack of contrast and posterior intra-abdominal fat. There is no evidence for a bowel obstruction. There is a large amount stool within the colon and rectum. Unenhanced images of the liver, spleen, adrenal glands, kidneys and pancreas are grossly unremarkable. There is no hydronephrosis. No lymphadenopathy is iden tified although sensitivity is diminished. Bladder is distended. IMPRESSION: 1. Exam significantly compromised given lack of contrast and paucity of intra- abdominal fat. 2. No bowel obstruction. Large amount of stool within the colon and rectum. 3. Small pericardial effusion. Small left pleural effusion. ACT 112: Negative or not required by law. Electronically signed by: Gurinder Velez M.D. 04/07/2021 12:[address] 04/07/21 10:31 CT OF THE CHEST WITHOUT IV CONTRAST CLINICAL HISTORY: Chest pain. COMPARISON STUDY: No previous studies for comparison. CT DOSE: 607.67 mGy.cm TECHNIQUE: Axial images of the chest were obtained without IV contrast. Images were reviewed in the axial, sagittal, and coronal planes. IV contrast was not administered for this examination. Automated exposure control was utilized for the study. A dose lowering technique was utilized adhering to the principles of ALARA. FINDINGS: Evaluation of the chest is suboptimal on this unenhanced exam. Note is made of a large infiltrative destructive mass centered within the anterior right upper chest wall. This results in erosion of the manubrium, undersurface of the proximal right clavicle, the anterior right second rib as well as the anterior right first rib. This contains multiple radiodensities. This extends into the mediastinum as well as the right upper lobe. There is right upper lobe volume loss. This mass measures approximately 9.8 x 6.5 x 6 cm. There may be trace gas within the SVC. Size of the heart is normal. There is no pneumothorax. A small left pleural effusion is noted. Note is made of a spiculated 1.4 x 1.1 cm right middle lobe nodule. There is also an irregular 3.5 x 3.1 cm left upper lobe mass which extends to the pleura. This contains calcifications. There are tiny nodules within the right middle lobe as well as the left lower lobe. The abdomen and pelvis will be reported separately. IMPRESSION: 1. Large destructive infiltrative mass centered within the anterior right upper chest wall which results in erosion of the manubrium, undersurface of the proximal right clavicle and the anterior right first and second ribs. This extends into the right upper lobe and invades the mediastinum. This is consistent with a neoplasm and may reflect a lung malignancy invading the chest wall. A chondrosarcoma is also within the differential given the CT appearance. Tissue sampling is recommended. 2. Irregular 3.5 x 3.1 cm left upper lobe mass. The appearance favors a primary lung malignancy although metastatic disease could appear similar. 3. Spiculated 1.4 cm right middle lobe nodule also consistent with a neoplastic process. 4. Small left pleural effusion. 5. Bilateral upper lobe volume loss. ACT 112: Negative or not required by law. Electronically signed by: Gurinder Velez M.D. 04/07/2021 12:36 PM Aspiration 04/08/21 00:00 ULTRASOUND-GUIDED FINE-NEEDLE ASPIRATION OF A MANUBRIAL LESION KUB X-Ray 04/11/21 09:32 Hospital Course (1) Chest wall mass: Developing over past several months. Had been using biofreeze and cough syrup and put of seeing medical provider. Came to ER with severe protein calorie malnourishment and weight loss >15%TBW over last several months Hx throat cancer 15-16yo s/p chemo/XRT at [facility] Concerns for recurrence vs different primary (no hx smoking, chewing) CT chest * 1. Large destructive infiltrative mass centered within the anterior right upper chest wall which results in erosion of the manubrium, undersurface of the proximal right clavicle and the anterior right first and second ribs. This extends into the right upper lobe and invades the mediastinum. This is consistent with a neoplasm and may reflect a lung malignancy invading the chest wall. A chondrosarcoma is also within the differential given the CT appearance. Tissue sampling is recommended. * 2. Irregular 3.5 x 3.1 cm left upper lobe mass. The appearance favors a primary lung malignancy although metastatic disease could appear similar. * 3. Spiculated 1.4 cm right middle lobe nodule also consistent with a neoplastic process. * 4. Small left pleural effusion. * 5. Bilateral upper lobe volume loss. CTA/P suboptimal and no use of contrast. No obstruction, stool noted. No CT Head obtained. Did have discussion about outpatient PET scan s/p PEG exchange by Dr. Garland given bolt/inability to be addressed by other GI/surgeon. Given flushes to do daily but patient wanted to hold off on foods just yet --> has been on Pureed diet for years, tolerated without difficulty however suspect he will need in near future if unable to keep up with needs/once he begins treatment Oncology consulted -- will arrange for chemo outpatient after A-port placement which is to be done next Thursday by Dr. Garland s/p FNA on 04/08 * FINAL DIAGNOSIS: * Mediastinum, sternal mass, ultrasound-guided fine needle aspiration: Squamous cell carcinoma (see comment) * Comment: The history of a head and neck tumor combined with intensely positive p16 staining is highly suggestive of a head and neck primary site. Primary lung squamous cell carcinomas can occasionally show p16 staining, though this is much less common. Clinical correlation required. Managing Consultant Clinical Professor consulted during admission --> started on cerovite daily. In addition to IV thiamine while inpatient We also checked B12/folate and started on folate supplementation during admission Supportive care, electrolyte replacement as needed Voltaren gel and morphine solution effective at adequate pain control D/c'd lisinopril and started on metoprolol 12.5mg daily to prevent worsening dehydration Patient required hospital bed at discharge for safety and positioning not able to be provided by regular bed for frequent repositioning and head of bed elevated >30 degrees. Rx given to CM and bed to be delivered day of discharge (2) Anemia: Normocytic- likely relates to malnutrition and overall clinical situation Iron studies low iron 28, TIBC 192, transferrin 139L, transferrin % sat 14%L Venofer IV while inpatient, started on folate and multivitamins as above (3) Hypercalcemia: Almost certainly from bony erosion. IVF and diuretics provided Resolved but suspect will continue to increase given above PTH appropriately low given elevate Ca. Vit D low normal (4) Dehydration: IVF provided, electrolytes, and nutrition as above (5) Severe malnutrition: Severe protein-calorie malnutrition in setting of cancer -- PEG tube site has been in place for about 15 or 16 years, and so hopefully the tract is still viable for use. 70-year-old male who is been found to have a widely metastatic squamous cell carcinoma. Pt cachectic, weak, and has malnutrition. UBW ~ 120# x 6 mos ago; current wt in EMR 105#; 15# wt loss in 6 mos (12.5%, significant & unintentional); BMI 16.0 (underweight) Severe loss of muscle mass seen in the temples & clavicle bone region Severe Malnutrition (E43) PEG tube replacement as above Nutritional supplements, Folate, Venofer (6) Throat cancer: See above, the main concern of course would be a recurrence of his primary throat cancer Pathology as above (7) DVT prophylaxis: Lovenox while inpatient. (8) Discharge planning issues: PT/OT eval and treat -- recs for return home when medically stable Seen by palliative care - code status changed to DNR. Service excellence consulted for POA/advance directive paperwork POA: Health Care Agent: Mali Dooley, cell: [phone] (Significant Other) First Alternative Health Care Agent: Bryce Nance, cell: [phone] (Brother) Second Alternative Health Care Agent: Saqib Nance, cell: [phone] (Brother) Part II: Living Will (Patient Chose not to complete this section and marked where his agents can use his instructions as only guidance and make the final decisions related to his medical care) He does not consent to organ donation Discharged home with home health Total Time Total Time Spent Total Time Spent (In Minutes): 70 Discharge Plan Discharge Items Patient Disposition: Home - Home Health Services Reason For Visit: CHEST MASS, PAIN, FAILURE TO THRIVE Discharge Diagnosis: Chest Wall Mass, Squamous Cell Carcinoma Health Concerns: You have been hospitalized for an acute medical problem. During your stay at [facility], we have made an effort to correct the problem that brought you to the hospital while keeping you as comfortable as possible. Medications were used to bring your condition under control and your discharge instructions will include directions for any medications you should take after leaving the hospital. Please make sure you see your Primary Care Provider as part of your follow up plan. Activity: Resume your previous activity Non-emergency contact: Primary Care Provider Call non-emergency contact if: you have any medication questions, your symptoms worsen, your pain is not controlled and you have a fever Follow-up/Referrals: Eliecer Lopez MD [Physician] - (Department will call you with a follow up visit. Any questions please call [phone].) Dylan Randhawa DO [Physician] - (1-2 weeks Office will call you with an appointment. Any questions please call [phone]) Benoit Garland DO, FACS [Physician] - 04/17/21 (On 04/17/21 patient will have surgery with Dr. Garland for an A port. Call [phone] on Thursday04/16/21 between 2p.m. - 7p.m. for scheduled time.) Dylan Segura M.D. [Primary Care Provider] - 04/22/21 3:00 pm Diet: Heart Healthy Diet Texture: Pureed (blended smooth) Addtl Attending Provider Instructions: You have been hospitalized for mass of your chest. Biopsy (tissue) was sampled and the results show likely progressive head/neck cancer origin and was determined to be a SQUAMOUS CELL CARCINOMA, and your were seen by cancer doctor during admission as well as radiology to determine course with salvage chemotherapy and palliative (pain control) radiation with both Dr. Randhawa and Dr. Lopez. They will arrange follow up with you in the next week. You will need a extra IV site called a "port" to get your chemotherapy through. Dr. Garland (from surgery who exchanged your PEG feeding tube) is available to do this next Thursday and you will be contacted about getting you scheduled for this next week. You will need to FLUSH THE PEG TUBE ONCE DAILY -- you have been provided flushes and a prescription has been sent. You have been sent prescriptions for pain medication as a liquid solution to take as needed for pain. You have also been sent topical Voltaren gel to apply to affected areas. You were also given electrolyte/nutritional support while in the hospital, but it is likely that you will need to use the PEG tube in the near future if your nutritional status continues to decline and you are unable to keep up with your oral intake (by mouth). You were given multiple doses of IRON to help with your hemoglobin/blood counts and you may need transfusions in the future. Dr Randhawa may be able to arrange these for you as well as blood transfusion if needed. You should continue the multivitamin and FOLIC ACID supplementation to help with your blood counts. You will need to follow up with the following medical providers: Dr Garland (general surgery) for IV access next week, Dr Randhawa to begin your chemotherapy, and Dr. Lopez for the radiation. Please follow up with your primary care provider to monitor your progress and help coordinate your care. Your blood pressure pill was changed from LISINOPRIL to METOPROLOL to prevent further dehydration as the lisinopril can act as a diuretic and the metoprolol will help with BP control but not act as a diuretic. Please return to the emergency department with any fever, chills, uncontrolled pain, shortness of breath or for any other symptoms that are concerning for you. It has been a pleasure being a part of the medical team providing for you while you have been in the hospital. Take care! Pending Studies at Discharge: No Stand-Alone Forms: My [facility] Wound Care, Smoking Cessation Medications and DC Order Prescriptions: New metoprolol tartrate 25 mg Tablet 12.5 mg PO QAM 30 Days Qty: 15 RF: 1 [id number]-pilrnts gluconate [Centrum] 9 mg iron/15 mL Liquid 15 ml PO QAM 30 Days Qty: 450 RF: 0 folic acid 400 mcg tablet 400 mcg PO DAILY Qty: 30 RF: 0 diclofenac sodium 1 % gel 2 g topical QID Qty: 100 RF: 0 morphine concentrate 100 mg/5 mL (20 mg/mL) solution 5 mg PO Q4H PRN (Reason: pain) Qty: 120 RF: 0 Discontinued lisinopril 10 mg tablet 10 mg PO QAM RF: 0 Discharge Orders: Discharge Order (Routine); Ordered 04/12/21 Ordered By: Sherlyn Pham Admission Data Admit Date/Time: 04/07/21 17:06 Attending Provider: Magalis Johnson Admit Provider: Ryan Chu Primary Care Provider: Dylan Segura Other Providers: [facility] ; Gianfranco Willett ; Fabien Reza ; Dylan Randhawa V. ; Eliecer Lopez ; Crystal Uriarte ; Dagmar Jett Other Interventions: Discharge Summary Assessment (RN) Last Done: 04/12/21 11:12 Supervising Physician Co-Signing Physician Notes PA Supervision Note: I personally saw and examined the patient. I verified all lynn points and agree with KATIE Pham with the following exceptions and/or additions: S-Feeling better, pain controlled in chest. Anxious for dc to home and is wanting to start treatment for his cancer O- Vitals reviewed Gen: [AAOx3, NAD] HEENT: [anicteric sclerae, EOMI] CV: [RRR no mgr nl S1S2, large right central anterior chest wall mass] Pulm: [CTAB no wcr] Abd: [+BS soft NT ND no masses or hernias, PEG tube in place] Ext: [no edema,] Skin: [no rashes, warm/dry] Neuro: [full strength throughout] A/P-70 yo male here with large chest wall mass now found to be squamous cell CA, replacement of PEG tube. Improved, needs close f/u with Oncology dc to home Coding Level of Care Code D/C Day Management >30 mins Diagnoses Chest wall mass R22.2 Anemia D64.9 Anemia type: unspecified type Hypercalcemia E83.52 Dehydration E86.0 Severe malnutrition E43 Throat cancer C14.0 DVT prophylaxis Z29.9 Discharge planning issues Z02.9
[2021-04-13] MEDS ORDERED: METOPROLOL TARTRATE 25 MG TAB PO SCH (09:00)
== END 2021-04-12 15:55 | disposition home health service (06) | DRG 166 ==
LOC: ED 10:07 → 3W 17:06 → SUATTDRO 17:06 → 3W 17:40

== ENCOUNTER 2021-04-25 14:13 | Inpatient (IN) ==
[2021-04-25] MEDS ORDERED: ONDANSETRON INJ 2 MG/ML 2 ML VIAL IV STA (16:10)
[2021-04-25] MEDS ORDERED: SODIUM CHLORIDE 0.9% 1000ML 1,000 ML IV SCH (16:15)
[2021-04-25 17:11] LABS: Hematocrit (blood only) 40.7 % (42-52); Hemoglobin 13.3 g/dL (14.0-18.0); Immature Granulocytes # (auto) 0.02 K/uL (0.00-0.02); Immature Granulocytes % (auto) 0.2 %; Lymphocytes # (auto) 0.61 K/uL (1.2-3.4); Lymphocytes % (auto) 5.2 %; Mean Corpuscular Hemoglobin 33.3 pg (25-34); Mean Corpuscular Hgb Conc 32.7 g/dL (32-36); Mean Platelet Volume 10.1 fL (7.4-10.4); Monocytes % (auto) 3.4 %; Neutrophils # (auto) 10.61 K/uL (1.4-6.5); Neutrophils % (auto) 91.2 %; Platelet Count 338 K/uL (130-400); RDW Coefficient of Variation 14.5 % (11.5-14.5); RDW Standard Deviation 54.1 fL (36.4-46.3); Red Blood Count 3.99 M/uL (4.7-6.1); White Blood Count 11.64 K/uL (4.8-10.8)
--- NOTE | 2021-04-25 17:14 | XRay Report ---
KUB CLINICAL HISTORY: g tube placement COMPARISON STUDY: KUB April 13, 2021. FINDINGS: Bowel gas pattern is normal. Position of gastrostomy tube cannot be assessed without contra st administration. Moderate amount stool within the colon is noted. Density projecting over the pelvi s may reflect a distended bladder. IMPRESSION: 1. No evidence for a bowel obstruction. 2. Gastrostomy tube projects over the abdomen however intraluminal position cannot be confirmed witho ut contrast administered. ACT 112: Negative or not required by law. Electronically signed by: Gurinder Velez M.D. 04/25/2021 5:13 PM
[2021-04-25 17:23] LABS: INR 1.1 (0.9-1.1); Prothrombin Time 10.9 Seconds (9.0-12.0)
[2021-04-25 17:42] LABS: Alanine Aminotransferase 11 U/L (12-78); Albumin Globulin Ratio 0.8 (0.9-2); Albumin Level 3.5 gm/dl (3.4-5.0); Alkaline Phosphatase 132 U/L (45-117); Aspartate Aminotransferase 24 U/L (15-37); BUN Creatinine Ratio 29.4 (10-20); Bilirubin,Total 0.7 mg/dl (0.2-1); Blood Urea Nitrogen 38 mg/dl (7-18); Calcium 12.5 mg/dl (8.5-10.1); Carbon Dioxide 33 mmol/L (21-32); Chloride 97 mmol/L (98-107); Creatinine Clr Calc Pharmacy 35.6 ml/min; Est GFR (African American) 66.2 ml/min; Est GFR (Non-African American) 57.1 ml/min; Globulin 4.3 gm/dl (2.5-4.0); Glucose 102 mg/dl (70-99); Magnesium 2.4 mg/dl (1.8-2.4); Potassium 3.3 mmol/L (3.5-5.1); Sodium 137 mmol/L (136-145); Total Protein 7.8 gm/dl (6.4-8.2); Troponin I < 0.015 ng/ml (0-0.045)
--- NOTE | 2021-04-25 17:47 | Emergency Department Note ---
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 There and place a Mediport at that time. Patient evidently has not been doing well as an outpatient and home health has not shown up. States he has not been able to eat or drink at home. He is having nausea significantly. States he has intermittent pain in the upper chest where he is a mass with been using some morphine at home for this. Denies significant abdominal pain. Patient was seen by the palliative care service today in the outpatient setting referred here as he wants to be strengthened and hopefully undergo additional oncological treatments. Patient denies any syncope or falls but states he has felt lightheaded at some points. Denies shortness of breath at this time. Denies fevers. States a day or 2 ago his G-tube did fall out but he pushed it back in. Patient states has not been receiving any hydration or feedings through this to begin home health care seems to have not been set up at home. Patient states he is here to get strong and continue fighting. REVIEW OF SYSTEMS: A total of 10 review of systems was obtained and negative except as stated above in the HPI. PAST MEDICAL HISTORY: As noted above MEDICATIONS: Reviewed home medications SOCIAL HISTORY: Non-smoker, lives at home with family PHYSICAL EXAM: GENERAL: alert and oriented in no acute distress on stretcher but cachectic appearing sitting upright Head: normocephalic and atraumatic EYES: No injection, discharge or icterus. NECK: Trachea midline. Supple. ENT: Mucous membranes pink and moist. LUNGS: Airway patent. No retractions. Breath sounds clear with good air entry bilaterally. HEART: Regular rate and rhythm. Patient with a large right-sided upper chest mass. ABDOMEN: Soft and non-tender, without guarding or rebound. Right-sided abdominal G-tube in place without significant swelling. SKIN: Acyanotic, warm, dry, without rashes EXTREMITIES: Without swelling, tenderness or deformity but thin and cachectic NEUROLOGICAL: No focal deficits. No aphasia. No facial droop or slurred speech. EK bpm normal sinus rhythm. No PVC or PAC. No acute ST segment elevation or depression with a QTC of 462. Nonspecific lateral T wave flattening noted. CONTINUOUS CARDIAC MONITORING: was ordered and showed a heart rate of 70s to 80s bpm in normal sinus rhythm Patient's laboratory studies and imaging reviewed. Differential includes Infection, dehydration, metabolic abnormality, hypo/hyperglycemia, electrolyte disturbance, anemia, hypoxia, cardiac sources, intracerebral event, toxicologic, neurologic, as well as other pathologies. IMPRESSION/MEDICAL DECISION MAKING: Patient with decreased intake likely secondary to his oncological process with nausea. Patient states his G-tube came out he put it back in and unsure of his exact placement at this time does not appear peritoneal doubt acute intra- abdominal pathology. Not receiving feeds or hydration through the tube.. Appears dehydrated and received some fluid hydration here in the ER. Laboratory studies show worsening renal function with hypercalcemia likely related to given to dehydrational state. TSH is interesting elevated and requires further evaluation. Given some Zofran with improvement of his nausea. Given his significant fatigue related to his oncological process and symptoms feel that further optimization of care here at the hospital is reasonable. The hospitalist was contacted. I doubt an acute infectious source to his symptoms today. Covid testing was completed. DIAGNOSIS: Dehydration, nausea, hypercalcemia, elevated TSH DISPOSITION: Hospitalist will evaluate Patient was agreeable with this plan. Past Med/Surg History Medical History (Updated 04/25/21 @ 19:36 by Gaurav Yoon M.D.) Anemia Cachexia Widely metastatic squamous cell carcinoma Hypertension History of - per records Mass of right lung Admitted to [facility] March 2021- concern for recurrence of primary throat cancer with metastasis Metastatic squamous cell carcinoma Throat cancer Initially diagnosed around 2004- s/p XRT and chemo- PEG tube placed at that time. Had been doing well since that time until 4 months ago - had not used PEG tube in years. 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 Beliefs That Will Affect Care: None Current Living Situation: Other Feels Safe at Home: Yes Assistive Devices: None Allergies Allergies Allergy/AdvReac Type Severity Reaction Status Date / Time No Known Drug Allergies Allergy Verified 04/25/21 12:52 Home Meds Previous Rx's Medication Instructions Recorded diclofenac sodium 2 g TOPICAL QID #100 g 04/12/21 folic acid 400 mcg PO DAILY #30 tab 04/12/21 metoprolol tartrate 12.5 mg PO QAM 30 Days #15 tab 04/12/21 morphine concentrate 5 mg PO Q4H PRN #120 ml 04/12/21 Results & Data (ED) Vital Signs Vital Signs - 24 hr 04/25/21 14:19 04/25/21 16:08 04/25/21 16:10 Temperature 36.4 C L Temperature Source Temporal Artery Scan Pulse Rate 83 83 82 Pulse Rate [Apical] 80 Pulse Rate from SpO2 Sensor Pulse Rhythm Regular Pulse Rhythm [Apical] Regular Pulse Strength [Apical] Normal Respiratory Rate 18 16 18 Respiratory Effort / Characteristics Non-Labored Spontaneous Respiratory Depth Normal Respiratory Pattern Regular Blood Pressure 141/62 H 139/100 Blood Pressure [Right Arm] 169/98 H Blood Pressure Mean 88 113 Blood Pressure Mean [Right Arm] 121 Blood Pressure Position [Right Arm] Sitting Pulse Oximetry 97 96 Oxygen Delivery Method Room Air Room Air Sepsis Recent Fever Within 48 Hours No Sepsis New/Unexplained Change in Mental Status No Sepsis Action Taken by Nursing No Action Required 04/25/21 16:31 04/25/21 17:00 04/25/21 17:31 Temperature Temperature Source Pulse Rate 81 82 78 Pulse Rate [Apical] Pulse Rate from SpO2 Sensor 83 78 Pulse Rhythm Pulse Rhythm [Apical] Pulse Strength [Apical] Respiratory Rate 16 18 16 Respiratory Effort / Characteristics Respiratory Depth Respiratory Pattern Blood Pressure 169/98 H 181/105 H 192/74 H Blood Pressure [Right Arm] Blood Pressure Mean 121 130 113 Blood Pressure Mean [Right Arm] Blood Pressure Position [Right Arm] Pulse Oximetry 98 100 98 Oxygen Delivery Method Sepsis Recent Fever Within 48 Hours Sepsis New/Unexplained Change in Mental Status Sepsis Action Taken by Nursing 04/25/21 18:01 04/25/21 18:31 Temperature Temperature Source Pulse Rate 74 70 Pulse Rate [Apical] Pulse Rate from SpO2 Sensor 74 70 Pulse Rhythm Pulse Rhythm [Apical] Pulse Strength [Apical] Respiratory Rate 18 16 Respiratory Effort / Characteristics Respiratory Depth Respiratory Pattern Blood Pressure 191/99 H 168/89 H Blood Pressure [Right Arm] Blood Pressure Mean 129 115 Blood Pressure Mean [Right Arm] Blood Pressure Position [Right Arm] Pulse Oximetry 99 100 Oxygen Delivery Method Sepsis Recent Fever Within 48 Hours Sepsis New/Unexplained Change in Mental Status Sepsis Action Taken by Nursing Laboratory Data Result diagrams: 04/25/21 16:55 04/25/21 16:55 Lab Results 04/25/21 04/25/21 04/25/21 Range/Units 16:49 16:49 16:55 WBC 11.64 H (4.8-10.8) K/uL RBC 3.99 L (4.7-6.1) M/uL Hgb 13.3 L (14.0-18.0) g/dL Hct 40.7 L (42-52) % MCV 102.0 H (80-100) fL MCH 33.3 (25-34) pg MCHC 32.7 (32-36) g/dL RDW Std Deviation 54.1 H (36.4-46.3) fL RDW Coeff of Hemalatha 14.5 (11.5-14.5) % Plt Count 338 (130-400) K/uL MPV 10.1 (7.4-10.4) fL Immature Gran % (Auto) 0.2 % Neut % (Auto) 91.2 % Lymph % (Auto) 5.2 % Real % (Auto) 3.4 % Eos % (Auto) 0.0 % Baso % (Auto) 0.0 % Neut # (Auto) 10.61 H (1.4-6.5) K/uL Lymph # (Auto) 0.61 L (1.2-3.4) K/uL Real # (Auto) 0.40 (0.11-0.59) K/uL Eos # (Auto) 0.00 (0-0.5) K/uL Baso # (Auto) 0.00 (0-0.2) K/uL Immature Gran # (Auto) 0.02 (0.00-0.02) K/uL PT (9.0-12.0) Seconds INR (0.9-1.1) Sodium (136-145) mmol/L Potassium (3.5-5.1) mmol/L Chloride (98-107) mmol/L Carbon Dioxide (21-32) mmol/L Anion Gap (3-11) BUN (7-18) mg/dl Creatinine (0.6-1.4) mg/dl Est Cr Clr Drug Dosing ml/min Est GFR ( Amer) ml/min Est GFR (Non-Af Amer) ml/min BUN/Creatinine Ratio (10-20) Glucose (70-99) mg/dl Lactate (0.4-2.0) mmol/L Calcium (8.5-10.1) mg/dl Magnesium (1.8-2.4) mg/dl Total Bilirubin (0.2-1) mg/dl AST (15-37) U/L ALT (12-78) U/L Alkaline Phosphatase (45-117) U/L Troponin I (0-0.045) ng/ml Total Protein (6.4-8.2) gm/dl Albumin (3.4-5.0) gm/dl Globulin (2.5-4.0) gm/dl Albumin/Globulin Ratio (0.9-2) TSH (0.300-4.500) uIu/ml Free T4 (0.8-1.6) ng/dl COVID-19 Eval Order Covid19 at [facility] SARS-CoV-2 (PCR) NEGATIVE (Negative) 04/25/21 04/25/21 04/25/21 Range/Units 16:55 16:55 16:55 WBC (4.8-10.8) K/uL RBC (4.7-6.1) M/uL Hgb (14.0-18.0) g/dL Hct (42-52) % MCV (80-100) fL MCH (25-34) pg MCHC (32-36) g/dL RDW Std Deviation (36.4-46.3) fL RDW Coeff of Hemalatha (11.5-14.5) % Plt Count (130-400) K/uL MPV (7.4-10.4) fL Immature Gran % (Auto) % Neut % (Auto) % Lymph % (Auto) % Real % (Auto) % Eos % (Auto) % Baso % (Auto) % Neut # (Auto) (1.4-6.5) K/uL Lymph # (Auto) (1.2-3.4) K/uL Real # (Auto) (0.11-0.59) K/uL Eos # (Auto) (0-0.5) K/uL Baso # (Auto) (0-0.2) K/uL Immature Gran # (Auto) (0.00-0.02) K/uL PT 10.9 (9.0-12.0) Seconds INR 1.1 (0.9-1.1) Sodium 137 (136-145) mmol/L Potassium 3.3 L (3.5-5.1) mmol/L Chloride 97 L (98-107) mmol/L Carbon Dioxide 33 H (21-32) mmol/L Anion Gap 7.0 (3-11) BUN 38 H (7-18) mg/dl Creatinine 1.28 (0.6-1.4) mg/dl Est Cr Clr Drug Dosing 35.6 ml/min Est GFR ( Amer) 66.2 ml/min Est GFR (Non-Af Amer) 57.1 ml/min BUN/Creatinine Ratio 29.4 H (10-20) Glucose 102 H (70-99) mg/dl Lactate 3.9 H* (0.4-2.0) mmol/L Calcium 12.5 H* (8.5-10.1) mg/dl Magnesium 2.4 (1.8-2.4) mg/dl Total Bilirubin 0.7 (0.2-1) mg/dl AST 24 (15-37) U/L ALT 11 L (12-78) U/L Alkaline Phosphatase 132 H (45-117) U/L Troponin I < 0.015 (0-0.045) ng/ml Total Protein 7.8 (6.4-8.2) gm/dl Albumin 3.5 (3.4-5.0) gm/dl Globulin 4.3 H (2.5-4.0) gm/dl Albumin/Globulin Ratio 0.8 L (0.9-2) TSH 50.500 H (0.300-4.500) uIu/ml Free T4 0.42 L (0.8-1.6) ng/dl COVID-19 Eval Order SARS-CoV-2 (PCR) (Negative) Administered Medications Discontinued Medications Sodium Chloride (Nss 1000ml) 1,000 mls @ 999 mls/hr IV .[id number] CESILIA Stop: 04/25/21 17:15 Last Infusion: 04/25/21 18:07 Dose: 0 mls/hr Documented by: [id number] Admin: 04/25/21 17:07 Dose: 999 mls/hr Documented by: [id number] Ondansetron HCl (Ondansetron Inj 2 Mg/Ml 2 Ml Vial) 4 mg IV NOW STA Stop: 04/25/21 16:11 Last Admin: 04/25/21 17:07 Dose: 4 mg Documented by: [id number] Imaging Data Radiologist's Impression: KUB X-Ray 04/25/21 16:19 KUB CLINICAL HISTORY: g tube placement COMPARISON STUDY: KUB April 13, 2021. FINDINGS: Bowel gas pattern is normal. Position of gastrostomy tube cannot be assessed without contrast administration. Moderate amount stool within the colon is noted. Density projecting over the pelvis may reflect a distended bladder. IMPRESSION: 1. No evidence for a bowel obstruction. 2. Gastrostomy tube projects over the abdomen however intraluminal position cannot be confirmed without contrast administered. ACT 112: Negative or not required by law. Electronically signed by: Gurinder Velez M.D. 04/25/2021 5:13 PM Chest X-Ray 04/25/21 18:24 XR chest 1V portable CLINICAL HISTORY: assess for free air under diaphragm COMPARISON STUDY: Chest CT April 07, 2021. FINDINGS: No lucency is identified under the hemidiaphragms to suggest pneumoperitoneum. No evidence for pulmonary edema. Cardiac size is normal. A large right upper anterior chest wall mass with bony destruction is better depicted on chest CT. An irregular nodule within the superior segment of the left lower lobe is also better depicted on that exam. The right middle lobe nodule shown on exam is not well-visualized by radiography. There is no consolidation to suggest pneumonia. IMPRESSION: 1. No lucency under the hemidiaphragms to suggest pneumoperitoneum. 2. Redemonstration of the large right upper anterior chest wall mass and the mass within the superior segment of the left lower lobe. These findings are better depicted on prior chest CT. ACT 112: Negative or not required by law. Electronically signed by: Gurinder Velez M.D. 04/25/2021 7:30 PM Discharge Plan Visit Data Chief Complaint: Dehydration Stated Complaint: DEHYDRATED,LOSING WEIGHT,TERMINAL CANCER,REF BY ED Provider: Gaurav Yoon Discharge Problem: Dehydration, Hypercalcemia, Weakness, Elevated TSH Patient Disposition: Admitted As Inpatient Forms Stand Alone Forms: [facility] Prescriptions Prescriptions: No Action metoprolol tartrate 25 mg Tablet 12.5 mg PO QAM 30 Days Qty: 15 RF: 1 folic acid 400 mcg tablet 400 mcg PO DAILY Qty: 30 RF: 0 diclofenac sodium 1 % gel 2 g topical QID Qty: 100 RF: 0 morphine concentrate 100 mg/5 mL (20 mg/mL) solution 5 mg PO Q4H PRN (Reason: pain) Qty: 120 RF: 0 Referrals Referrals: PCP,NO [Primary Care Provider] -
[2021-04-25 18:15] LABS: T4 Free Thyroxine 0.42 ng/dl (0.8-1.6)
--- NOTE | 2021-04-25 18:23 | History & Physical Report ---
Date of Service April 25, 2021 Assessment & Plan (1) Dehydration: Presents with dehydration as evidenced by elevated BUN and creatinine, hypokalemia, significant hemoconcentration on CBC Secondary to very poor p.o. intake in the setting of metastatic squamous cell carcinoma He is not currently using his PEG tube He is having nausea and some dry heaves. Bowels seem to be moving well as per patient Perhaps the new onset nausea is a side effect of his morphine? Also could just be related to metastatic cancer although he has not yet started chemotherapy. -Admit to medical floor telemetry -Start D5 LR after receiving IV thiamine -Replace electrolytes -Antiemetics for nausea and encourage p.o. intake of pured diet (2) Hypercalcemia: Secondary to bony destruction from cancer plus dehydration -Hydrate overnight and repeat BMP and albumin in the morning (3) Anemia: Hemoglobin is up significantly to 13.3 from 8.9 just 2 weeks ago This is almost certainly from hemoconcentration although he did receive some IV iron last admission Follow CBC in the morning This is secondary to chronic disease and iron deficiency (4) Severe malnutrition: With severe protein calorie malnutrition, BMI is only recorded on admission at 12.6 which is significantly lower than previous Secondary to metastatic cancer and very poor p.o. intake Consult dietary -Continue IV thiamine 100 mg daily Continue multivitamin, folic acid replacement -Encourage p.o. intake -Check phosphorus level now and in the morning -Check triglycerides, prealbumin, CMP in the morning (5) Metastatic squamous cell carcinoma: With large chest mass invading into the bones and mediastinum, diagnosed with squamous cell carcinoma last admission Was to consider radiation therapy as well as chemotherapy Unfortunately, his a port could not be placed by the surgeon due to possible collaterals in the deep venous system on the left side -Need to consider if PICC line placement is possible -Consult oncology -It is unclear if he would be able to tolerate any chemotherapy at this point in time given his severe protein calorie malnutrition -Continue Roxanol as needed for pain -Consult palliative care who is helping to manage his pain and goals of care (6) Elevated TSH: TSH is significantly elevated at 50 with low free T4 Perhaps this is due to invasion of the tumor into the thyroid? Versus very poor nutrition -Start levothyroxine 25 mcg p.o. once daily Follow TSH in 2 weeks (7) PEG tube malfunction: PEG tube was replaced again on 04/17 with general surgery Patient reports that since he was home, it fell out again and he replaced it himself but I do not believe the balloon is expanded The patient has the PEG tube taped onto his abdomen -X-ray difficult to tell if this is in place -Consider general surgery consultation in the morning to reevaluate the PEG tube (8) Nausea & vomiting: As above, secondary to cancer and perhaps Roxanol -Antiemetics as needed IV fluids Elevated lactate likely secondary to dehydration (9) Hypokalemia: Secondary to dehydration and poor p.o. intake Replace with IV potassium chloride 20 mEq Also receiving LR maintenance fluids Follow BMP and magnesium in the morning (10) DVT prophylaxis: Heparin SQ Disposition-admit to medical floor with telemetry Full code as discussed with patient History of Present Illness Primary Care Provider: NO PCP This patient is a 70-year-old male with recently diagnosed metastatic squamous cell carcinoma with a large chest wall tumor resulting in erosion of the manubrium, undersurface of the proximal right Clavicle and right first and second ribs extending into the right upper lobe and mediastinum and also with multiple bilateral lung masses, severe protein calorie malnutrition,, previous throat/tongue cancer, PEG tube in place, hypertension, anemia, hypercalcemia who presents to the ER with significant nausea and inability to tolerate much p.o. He has a PEG tube in place that was just replaced by general surgery but had not had home care set up for tube feeds as he previously was tolerating p.o. pured diet at the time of discharge from recent hospitalization on 04/12. He continues to have significant pain at the site of the tumor in his chest for which she has been taking liquid morphine which is helpful. He was seen by palliative medicine today as an outpatient and referred to the ER due to suspected severe dehydration. He has had some lightheadedness but no syncope. He reports he has been eating and drinking a little bit but not enough and continues to repeat himself saying "I know, this is on me." Also, he reports after the surgeon replaced his feeding tube on 04/17, it came out again and he put it back in and taped it to his skin. The surgeon was not able to place his a port at that time due to resistance in the left internal jugular vein. The procedure was aborted. In the ER, he was found to have stable vital signs with mild hypertension. He had a mild leukocytosis, seem to be significantly hemoconcentrated with a hem oglobin of 13.3 up from 8.9 just 2 weeks ago. He was also noted to be hypokalemic, with elevated BUN and creatinine to 38 and 1.28, and elevated lactate of 3.9, and a calcium of 12.5. LFTs were only significant for a mild increase in alkaline phosphatase. Troponin was negative, and his TSH was significantly elevated at 50.5. He will be admitted for significant dehydration, hypercalcemia, hypothyroidism, and ongoing severe protein calorie malnutrition failure to thrive in the setting of metastatic squamous cell carcinoma. Allergies Allergy/AdvReac Type Severity Reaction Status Date / Time No Known Drug Allergies Allergy Verified 04/25/21 12:52 Home Medications Medication Instructions Recorded Confirmed Type diclofenac sodium 2 g TOPICAL QID #100 g 04/12/21 04/25/21 Rx folic acid 400 mcg PO DAILY #30 tab 04/12/21 04/25/21 Rx metoprolol tartrate 12.5 mg PO QAM 30 Days #15 tab 04/12/21 04/25/21 Rx morphine concentrate 5 mg PO Q4H PRN #120 ml 04/12/21 04/25/21 Rx Past Med/Surg History Medical History (Updated 04/25/21 @ 21:52 by Magalis Johnson MD) Anemia Cachexia Widely metastatic squamous cell carcinoma Hypertension History of - per records Mass of right lung Admitted to [facility] March 2021- concern for recurrence of primary throat cancer with metastasis Metastatic squamous cell carcinoma Throat cancer Initially diagnosed around 2004- s/p XRT and chemo- PEG tube placed at that time. Had been doing well since that time until 4 months ago - had not used PEG tube in years. Recently diagnosed with squamous cell carcinoma highly suggestive of head and neck primary site per records Weakness Surgical History History of gastrostomy tube placement x 2 Had removal and replacement of tube 04/11/21 (currently not using- on pureed diet but feel may need to use tube in near future) Hx of esophagogastroduodenoscopy Family History Other Diabetes Social History Smoking Status: Never smoker Second Hand Exposure: No; Hx Alcohol Use: No Hx Substance Use: No Preferred Language: Stateless Communication Ability: Effective Supervisor Respiratory Required: No Beliefs That Will Affect Care: None Current Living Situation: Other Feels Safe at Home: Yes Assistive Devices: None Review of Systems Review of Systems: All systems reviewed & are unremarkable except as noted in HPI & below He has been moving his bowels. No fevers No worsening shortness of breath. He is making urine Physical Exam Constitutional: + ill appearing, + cachectic and cooperative; no acute distress Eyes: PERRL, conjunctivae normal, anicteric sclerae ENMT: Ears: no hearing impairment Mouth: + oral mucosal abnormality (Diffuse white exudate plaques on mucosa and tongue with some erythema) Neck: + abnormal visual inspection (Large mass in the upper right anterior chest wall and neck) Respiratory: normal respiratory effort Auscultation: + diminished lung sounds (Throughout); no crackles and no wheezes Cardiovascular: RRR, no murmur, no edema Gastrointestinal (Abdomen): Inspection/Auscultation: normal bowel sounds; + abdomen abnormal to inspection (PEG tube in place) and abdomen not distended Percussion/Palpation: abdomen soft; abdomen nontender Musculoskeletal: Extremities: extremities normal to inspection; no cyanosis and no clubbing Skin: no rashes, warm and dry Neurologic: moves all extremities and awake; no focal motor deficits Psychiatric: A+Ox3, euthymic affect Lymphatic: no lymphedema Results & Data Results & Data ([facility] [place]) Vital Signs (Past 12 Hours) Vital Signs Temp Pulse Pulse Resp BP BP Pulse Ox 04/25/21 16:10 82 80 18 169/98 H 96 04/25/21 14:19 36.4 C L 83 18 141/62 H 97 Laboratory Results 04/25/21 04/25/21 04/25/21 Range/Units 16:55 16:55 16:55 WBC (4.8-10.8) K/uL RBC (4.7-6.1) M/uL Hgb (14.0-18.0) g/dL Hct (42-52) % MCV (80-100) fL MCH (25-34) pg MCHC (32-36) g/dL RDW Std Deviation (36.4-46.3) fL RDW Coeff of [place] (11.5-14.5) % Plt Count (130-400) K/uL MPV (7.4-10.4) fL Immature Gran % (Auto) % Neut % (Auto) % Lymph % (Auto) % [place] % (Auto) % Eos % (Auto) % Baso % (Auto) % Neut # (Auto) (1.4-6.5) K/uL Lymph # (Auto) (1.2-3.4) K/uL [place] # (Auto) (0.11-0.59) K/uL Eos # (Auto) (0-0.5) K/uL Baso # (Auto) (0-0.2) K/uL Immature Gran # (Auto) (0.00-0.02) K/uL PT 10.9 (9.0-12.0) Seconds INR 1.1 (0.9-1.1) Sodium 137 (136-145) mmol/L Potassium 3.3 L (3.5-5.1) mmol/L Chloride 97 L (98-107) mmol/L Carbon Dioxide 33 H (21-32) mmol/L Anion Gap 7.0 (3-11) BUN 38 H (7-18) mg/dl Creatinine 1.28 (0.6-1.4) mg/dl Est Cr Clr Drug Dosing 35.6 ml/min Est GFR ( Amer) 66.2 ml/min Est GFR (Non-Af Amer) 57.1 ml/min BUN/Creatinine Ratio 29.4 H (10-20) Glucose 102 H (70-99) mg/dl Lactate 3.9 H* (0.4-2.0) mmol/L Calcium 12.5 H* (8.5-10.1) mg/dl Magnesium 2.4 (1.8-2.4) mg/dl Total Bilirubin 0.7 (0.2-1) mg/dl AST 24 (15-37) U/L ALT 11 L (12-78) U/L Alkaline Phosphatase 132 H (45-117) U/L Troponin I < 0.015 (0-0.045) ng/ml Total Protein 7.8 (6.4-8.2) gm/dl Albumin 3.5 (3.4-5.0) gm/dl Globulin 4.3 H (2.5-4.0) gm/dl Albumin/Globulin Ratio 0.8 L (0.9-2) TSH 50.500 H (0.300-4.500) uIu/ml Free T4 0.42 L (0.8-1.6) ng/dl COVID-19 Eval Order SARS-CoV-2 (PCR) (Negative) 04/25/21 04/25/21 04/25/21 Range/Units 16:55 16:49 16:49 WBC 11.64 H (4.8-10.8) K/uL RBC 3.99 L (4.7-6.1) M/uL Hgb 13.3 L (14.0-18.0) g/dL Hct 40.7 L (42-52) % MCV 102.0 H (80-100) fL MCH 33.3 (25-34) pg MCHC 32.7 (32-36) g/dL RDW Std Deviation 54.1 H (36.4-46.3) fL RDW Coeff of [place] 14.5 (11.5-14.5) % Plt Count 338 (130-400) K/uL MPV 10.1 (7.4-10.4) fL Immature Gran % (Auto) 0.2 % Neut % (Auto) 91.2 % Lymph % (Auto) 5.2 % [place] % (Auto) 3.4 % Eos % (Auto) 0.0 % Baso % (Auto) 0.0 % Neut # (Auto) 10.61 H (1.4-6.5) K/uL Lymph # (Auto) 0.61 L (1.2-3.4) K/uL [place] # (Auto) 0.40 (0.11-0.59) K/uL Eos # (Auto) 0.00 (0-0.5) K/uL Baso # (Auto) 0.00 (0-0.2) K/uL Immature Gran # (Auto) 0.02 (0.00-0.02) K/uL PT (9.0-12.0) Seconds INR (0.9-1.1) Sodium (136-145) mmol/L Potassium (3.5-5.1) mmol/L Chloride (98-107) mmol/L Carbon Dioxide (21-32) mmol/L Anion Gap (3-11) BUN (7-18) mg/dl Creatinine (0.6-1.4) mg/dl Est Cr Clr Drug Dosing ml/min Est GFR ( Amer) ml/min Est GFR (Non-Af Amer) ml/min BUN/Creatinine Ratio (10-20) Glucose (70-99) mg/dl Lactate (0.4-2.0) mmol/L Calcium (8.5-10.1) mg/dl Magnesium (1.8-2.4) mg/dl Total Bilirubin (0.2-1) mg/dl AST (15-37) U/L ALT (12-78) U/L Alkaline Phosphatase (45-117) U/L Troponin I (0-0.045) ng/ml Total Protein (6.4-8.2) gm/dl Albumin (3.4-5.0) gm/dl Globulin (2.5-4.0) gm/dl Albumin/Globulin Ratio (0.9-2) TSH (0.300-4.500) uIu/ml Free T4 (0.8-1.6) ng/dl COVID-19 Eval Order Covid19 at [facility] SARS-CoV-2 (PCR) NEGATIVE (Negative) Diagnostic Findings KUB X-Ray 04/25/21 16:19 KUB CLINICAL HISTORY: g tube placement COMPARISON STUDY: KUB April 13, 2021. FINDINGS: Bowel gas pattern is normal. Position of gastrostomy tube cannot be assessed without contrast administration. Moderate amount stool within the colon is noted. Density projecting over the pelvis may reflect a distended bladder. IMPRESSION: 1. No evidence for a bowel obstruction. 2. Gastrostomy tube projects over the abdomen however intraluminal position cannot be confirmed without contrast administered. ACT 112: Negative or not required by law. Electronically signed by: Gurinder Velez M.D. 04/25/2021 5:13 PM Code Status & VTE Plan Code Status Full code VTE Prophylaxis Plan VTE Prophylaxis will be ordered: Yes PG Care Time/CCT Total # of Minutes Spent Total Time Spent with Patient: Total time spent is greater than 50% in coordination of care (as documented) at patient's floor/unit and/or counseling patient: Coding Level of Care Code 81262 Initial Inpt Care Lvl 3 Diagnoses Dehydration E86.0 Hypercalcemia E83.52 Anemia D64.9 Anemia type: unspecified type Severe malnutrition E43 Metastatic squamous cell carcinoma C79.9 Elevated TSH R79.89 PEG tube malfunction K94.23 Nausea & vomiting R11.2 Hypokalemia E87.6 DVT prophylaxis Z29.9 (1) Anemia Anemia type: unspecified type Qualified Code(s): D64.9 - Anemia, unspecified
--- NOTE | 2021-04-25 19:31 | XRay Report ---
XR chest 1V portable CLINICAL HISTORY: assess for free air under diaphragm COMPARISON STUDY: Chest CT April 07, 2021. FINDINGS: No lucency is identified under the hemidiaphragms to suggest pneumoperitoneum. No evidence for pulmonary edema. Cardiac size is normal. A large right upper anterior chest wall mass with bony d estruction is better depicted on chest CT. An irregular nodule within the superior segment of the lef t lower lobe is also better depicted on that exam. The right middle lobe nodule shown on exam is not well-visualized by radiography. There is no consolidation to suggest pneumonia. IMPRESSION: 1. No lucency under the hemidiaphragms to suggest pneumoperitoneum. 2. Redemonstration of the large right upper anterior chest wall mass and the mass within the superior segment of the left lower lobe. These findings are better depicted on prior chest CT. ACT 112: Negative or not required by law. Electronically signed by: Gurinder Velez M.D. 04/25/2021 7:30 PM
--- NOTE | 2021-04-25 19:50 | XRay Report ---
UPRIGHT ABDOMINAL RADIOGRAPH CLINICAL HISTORY: ASSESS FREE AIR IN DIAPHRAGM COMPARISON STUDY: KUB performed earlier today. FINDINGS: There is no lucency under the hemidiaphragms to suggest pneumoperitoneum. Visualized bowel gas pattern is normal. Gastrostomy tube projects over the abdomen. Intraluminal position cannot be co nfirmed without administration of contrast. IMPRESSION: No lucency under the hemidiaphragms to suggest pneumoperitoneum. ACT 112: Negative or not required by law. Electronically signed by: Gurinder Velez M.D. 04/25/2021 7:49 PM
[2021-04-25] MEDS ORDERED: POLYETHYLENE (MIRALAX) 17 GM PACK PO PRN (21:10)
[2021-04-25] MEDS: D5W AND LACTATED RINGERS 1,000 ML IV SCH (22:21)
[2021-04-25] MEDS: MoRPHine SULFATE 10 MG/0.5 ML UDP PO PRN (22:21)
[2021-04-25] MEDS: POTASSIUM CHLORIDE / WTR 10 MEQ/100 ML PLCT IV SCH (22:22)
[2021-04-25] MEDS: HEPARIN SOD 5,000 UNIT/0.5 ML VIAL SQ SCH (22:22)
[2021-04-25] MEDS: NYSTATIN SUSP 500,000 U/5 ML UDC PO SCH (22:22)
[2021-04-25] MEDS: DICLOFENAC SOD 1% GEL 100 GM TUBE EXT SCH (22:23)
[2021-04-25] MEDS: THIAMINE HCL 100 MG in SYRINGE 9 ML IV SCH (22:23)
[2021-04-25] MEDS: ONDANSETRON INJ 2 MG/ML 2 ML VIAL IV PRN (22:29)
[2021-04-26] MEDS: POTASSIUM CHLORIDE / WTR 10 MEQ/100 ML PLCT IV SCH (00:52)
[2021-04-26] MEDS: LEVOTHYROXINE SODIUM 25 MCG TABLET PO SCH (06:17)
[2021-04-26] MEDS: MULTI VIT W/MINERALS LIQUID 15 ML UDP PO SCH (08:08)
[2021-04-26] MEDS: FOLIC ACID 400 MCG TAB PO SCH (08:08)
[2021-04-26] MEDS: THIAMINE HCL 100 MG in SYRINGE 9 ML IV SCH (08:08)
[2021-04-26] MEDS: HEPARIN SOD 5,000 UNIT/0.5 ML VIAL SQ SCH ×2 (08:09→20:26)
[2021-04-26] MEDS: NYSTATIN SUSP 500,000 U/5 ML UDC PO SCH ×4 (08:09→20:26)
[2021-04-26] MEDS: METOPROLOL TARTRATE 25 MG TAB PO SCH (08:09)
[2021-04-26] MEDS: DICLOFENAC SOD 1% GEL 100 GM TUBE EXT SCH ×4 (08:10→20:26)
[2021-04-26] MEDS: ONDANSETRON INJ 2 MG/ML 2 ML VIAL IV PRN (08:25)
[2021-04-26] MEDS: MoRPHine SULFATE 10 MG/0.5 ML UDP PO PRN ×2 (08:26→17:49)
[2021-04-26 09:21] LABS: Albumin Globulin Ratio 0.7 (0.9-2); Albumin Level 2.8 gm/dl (3.4-5.0); BUN Creatinine Ratio 29.3 (10-20); Bilirubin,Total 0.7 mg/dl (0.2-1); Creatinine Clr Calc Pharmacy 36.7 ml/min; Est GFR (Non-African American) 66.4 ml/min; Globulin 4.1 gm/dl (2.5-4.0); Phosphorus 2.4 mg/dl (2.5-4.9); Total Protein 6.9 gm/dl (6.4-8.2)
[2021-04-26 10:47] LABS: Basophils # (auto) 0.01 K/uL (0-0.2); Basophils % (auto) 0.1 %; Eosinophils # (auto) 0.01 K/uL (0-0.5); Eosinophils % (auto) 0.1 %; Hematocrit (blood only) 33.4 % (42-52); Hemoglobin 10.7 g/dL (14.0-18.0); Immature Granulocytes # (auto) 0.03 K/uL (0.00-0.02); Immature Granulocytes % (auto) 0.3 %; Lymphocytes # (auto) 0.42 K/uL (1.2-3.4); Lymphocytes % (auto) 4.3 %; Mean Corpuscular Hemoglobin 32.5 pg (25-34); Mean Corpuscular Volume 101.5 fL (80-100); Mean Platelet Volume 9.8 fL (7.4-10.4); Monocytes # (auto) 0.32 K/uL (0.11-0.59); Monocytes % (auto) 3.3 %; Neutrophils # (auto) 8.98 K/uL (1.4-6.5); Neutrophils % (auto) 91.9 %; Platelet Count 288 K/uL (130-400); RDW Coefficient of Variation 14.5 % (11.5-14.5); RDW Standard Deviation 53.7 fL (36.4-46.3); Red Blood Count 3.29 M/uL (4.7-6.1); White Blood Count 9.77 K/uL (4.8-10.8)
[2021-04-26 10:58] LABS: Potassium 3.2 mmol/L (3.5-5.1)
[2021-04-26 11:03] LABS: Magnesium 2.1 mg/dl (1.8-2.4)
[2021-04-26] MEDS: D5W AND LACTATED RINGERS 1,000 ML IV SCH ×2 (11:07→20:27)
[2021-04-26] MEDS ORDERED: ZOLEDRONIC ACID 4 MG in 0.9 % SODIUM CHLORIDE 100 ML IV ONE (12:15)
--- NOTE | 2021-04-26 12:23 | Electrocardiogram Report ---
Test Reason : Blood Pressure : / mmHG Vent. Rate : 087 BPM Atrial Rate : 087 BPM P-R Int : 164 ms QRS Dur : 086 ms QT Int : 384 ms P-R-T Axes : 078 023 088 degrees QTc Int : 462 ms Poor data quality, interpretation may be adversely affected Normal sinus rhythm Possible Inferior infarct (cited on or before 07-APR-2021) Anteroseptal infarct (cited on or before 07-APR-2021) Abnormal ECG When compared with ECG of 07-APR-2021 10:53, Nonspecific T wave abnormality, worse in Lateral leads Confirmed by Bryce Anderson ([id number]) on 04/26/2021 12:22:35 PM Referred By: REFERRED SELF Confirmed By:Bryce Anderson
[2021-04-26 12:35] LABS: Appearance Urine Clear (Clear); Bilirubin Urine Negative (Negative); Blood Urine Negative (Negative); Color Urine Yellow; Glucose Urine UA Negative (Negative); Ketones Urine Negative (Negative); Leukocyte Esterase Urine Negative (Negative); Nitrite Urine Negative (Negative); Protein Urine Negative (Negative); Specific Gravity Urine 1.012 (1.000-1.030); Urobilinogen Urine Negative (Negative); pH Urine 6.5 (4.5-7.5)
--- NOTE | 2021-04-26 16:35 | Palliative Care Consultation ---
Date of Consultation April 26, 2021 Assessment & Plan (1) Cachexia: Mr. Nance remains adamant that he wants to try to continue to eat pureed foods. We had a discussion about the concern that his current nutritional status will limit his ability to have treatment for his cancer. He is meeting with sales service route manager today and is agreeable to ongoing support at home with home care. He is not agreeing to further evaluation of PEG tube for use as supplemental feeding. (2) Palliative care encounter: We have talked extensively about concerns for his poor prognosis. He tells me that he knows that he will be in a month whether he has treatment or not. Unfortunately, I suspect that this is true. I asked him how he would want to spend that time and what he would like his dying time to look like. He repeatedly says that he would like to be at home and avoid coming to the hospital. We have discussed having hospice care at home to help him with symptom management and being able to remain at home but he consistently declines this and tells me that he does not want to quit and not try treatment. His caregiver, Samara, is frustrated with his refusal to eat and accept help and has indicated that she is not able to fully care for him at home as she has to work. He is followed by palliative care as an outpatient as well and we will continue to work with him on support and plan of care. (3) Metastatic squamous cell carcinoma: (4) Chest wall mass: (5) Throat cancer: History of Present Illness Reason for Consultation: goals of care Requesting Physician: Dr. Johnson Attending Physician: Stef Chavarria History of Present Illness 70 yo gentleman with history of SCC of the head and neck who has large cutaneous right chest mass that on CT erodes into his sternum, clavicle, 1st and 2nd ribs and extends to RUL and mediastinum. This is also SCC per pathology. He has had ongoing pain with this and had been taking morphine at home. He reported that pain control was good but ran out of medication more than a week early and on further discussion, it appears that he was taking 20mg rather than 5mg. He has been receiving 5mg during hospital stay and feels that pain is currently controlled. He has also had severe anorexia with some difficulty swallowing. He is spitting his secretions in a cup. He has a PEG that remains from his head and neck cancer but it is not functional. He did have the tube replaced last week but tells me that it fell out when he stood up at home. He has had very poor po intake and was admitted with dehydration. He feels considerably better with hydration. He lives in his home with a long time friend Samara Dooley, who lives with him and provides care for him. She says that he has been very weak at home and spends most of his time lying down. Allergies Allergy/AdvReac Type Severity Reaction Status Date / Time No Known Drug Allergies Allergy Verified 04/25/21 12:52 Home Medications Medication Instructions Recorded Confirmed Type diclofenac sodium 2 g TOPICAL QID #100 g 04/12/21 04/25/21 Rx folic acid 400 mcg PO DAILY #30 tab 04/12/21 04/25/21 Rx metoprolol tartrate 12.5 mg PO QAM 30 Days #15 tab 04/12/21 04/25/21 Rx morphine concentrate 5 mg PO Q4H PRN #120 ml 04/12/21 04/25/21 Rx Patient History Medical History Anemia Cachexia Widely metastatic squamous cell carcinoma Hypertension History of - per records Mass of right lung Admitted to [facility] March 2021- concern for recurrence of primary throat cancer with metastasis Metastatic squamous cell carcinoma Throat cancer Initially diagnosed around 2004- s/p XRT and chemo- PEG tube placed at that time. Had been doing well since that time until 4 months ago - had not used PEG tube in years. Recently diagnosed with squamous cell carcinoma highly suggestive of head and neck primary site per records Weakness Surgical History History of gastrostomy tube placement x 2 Had removal and replacement of tube 04/11/21 (currently not using- on pureed diet but feel may need to use tube in near future) Hx of esophagogastroduodenoscopy Family History Other Diabetes Social History Smoking Status: Former smoker Second Hand Exposure: No; Do You Dip or Chew Tobacco: No; Tobacco Cessation Education Requested by Patient: No Hx Alcohol Use: No Hx Substance Use: No Preferred Language: Serbian Communication Ability: Effective Inspector General Required: No Beliefs That Will Affect Care: None Current Living Situation: Alone Other Information That Helps Us Care for You: No Feels Safe at Home: No Is there a partner from a previous relationship who is making you feel unsafe now?: No Any Concerns about Your Family Situation: No Would You Like to Speak to Someone About Your Situation: No Safety Concerns: Feels Safe At This Time Assistive Devices: Glasses Review of Systems Review of Systems: [place] Symptom Assessment Scale Pain 0/3 Anxiety 0/3 Dyspnea 0/3 Anorexia 3/3 Fatigue 2/3 Nausea 0/3 Drowsiness 0/3 Palliative Performance Score 40% Physical Exam Constitutional: + ill appearing and + cachectic ENMT: Mouth: + dry oral mucous membranes Respiratory: normal respiratory effort; no labored breathing Chest (Breasts): Additional Comments: large, firm, nontender mass right upper chest Gastrointestinal (Abdomen): Nontender, piece of PEG tube taped to his abdomen Musculoskeletal: Extremities: + muscle atrophy Skin: warm and dry Neurologic: awake; not confused Results & Data ([facility]) Vital Signs (Past 12 Hours) Vital Signs Temp Pulse Pulse Resp BP Pulse Ox 04/26/21 15:29 97.7 F 63 18 139/79 91 04/26/21 15:01 66 04/26/21 12:18 97.7 F 57 L 16 129/69 95 04/26/21 07:51 97.5 F L 68 16 123/79 100 04/26/21 07:32 68 PG Care Time/CCT Total # of Minutes Spent Total Time Spent with Patient: Total time spent is greater than 50% in coordination of care (as documented) at patient's floor/unit and/or counseling patient: total time spent 65 minutes with more than 50% of time spent on goals of care, symptom management, education. Coding Level of Care Code 36591 Initial Inpt Care Lvl 2 Diagnoses Cachexia R64 Palliative care encounter Z51.5 Metastatic squamous cell carcinoma C79.9 Chest wall mass R22.2 Throat cancer C14.0
--- NOTE | 2021-04-26 21:58 | CT Scan Report ---
HEAD CT NONCONTRAST CT DOSE: 537.48 mGy.cm HISTORY: squamous cell ca of the lung, eval for intracranial metastatic disease TECHNIQUE: Multiaxial CT images of the head were performed without the use of intravenous contrast. A utomated exposure control was utilized for this study. A dose lowering technique was utilized adheri ng to the principles of ALARA. Comparison: None. Findings: The paranasal sinuses and mastoid air cells are clear. The calvarium and skull base are int act. There is no mass, hematoma, midline shift, acute infarct. White matter hypodensity is nonspecifi c but suggestive of microvascular ischemic change. The ventricles and sulci demonstrate mild age-rela ambreen involutional changes. Impression: No acute intracranial abnormality. Specifically, no evidence for intracranial metastatic disease. ACT 112: Negative or not required by law. Electronically signed by: Vitaliy Marrero M.D. 04/26/2021 9:57 PM
--- NOTE | 2021-04-26 23:31 | Hospitalist Progress Note ---
Date of Service April 26, 2021 Assessment & Plan (1) Hypercalcemia: most certainly due to squamous cell cancer. intact PTH earlier in March was suppressed. I cannot find a PTH-related peptide in the EMR but, if one was checked, likely to be quite elevated. will simply treat. continue IVF. give zometa 4mg IV x 1 now. likely to be an ongoing issue for the foreseeable future. suspect his rapid decline over the last week may have been the high calcium as it was normal in mid March. (2) Metabolic encephalopathy: likely due to hypercalcemia. cannot rule out other factors. will check CT head - r/o intracranial mets. his significant other confirmed by phone he has been confused at home. if CT head is neg, and if confusion persists, consider MRI brain. treat the high calcium. I don't see evidence of infectious process at this time. (3) Dehydration: 2nd to issues with oral intake, hypercalcemia, etc. resulting MARCI. hydrate with isotonic fluids. repeat BMP am. (4) Anemia: anemia of chronic disease along with Fe def + folate def. received IV iron recently. also on folate supplementation. baseline Hb about 9-10. Hb was quite high at presentation -- this was likely hemoconcentration from severe dehydration. cbc in am. cont folate. consider additional IV iron while here. (5) Metastatic squamous cell carcinoma: With large chest mass invading into the bones and mediastinum, diagnosed with squamous cell carcinoma last admission after FNA showed the SCC - likely metastatic / of head/neck origin (had throat cancer in the past). Received message that Dr Lopez from rad onc to initiate palliative xrt on Thursday whether patient is here or discharged. very poor functional status - uncertain if truly a chemo candidate. CT head to r/o intracranial mets. (6) PEG tube malfunction: 04/11 - gastrostomy tube replaced by Dr Garland. sometime thereafter the tube came out; holbrook placed to maintain the tract. 04/17 - new gastrostomy tube placed again by Dr Garland. patient was confused during the visit and he was unable to give me details if the tube came out at his home. by report he told prior providers it came out at home. he put the tube back in the tract and then taped it in place. regardless he does NOT want enteral feedings. will NOT use the tube for meds or enteral feedings at this time. (7) Nausea & vomiting: resolved now tolerating liquids and some pureed foods (8) Hypokalemia: still low. add KCL to IV fluids. mag level this am normal. repeat BMP am. (9) Hypothyroidism: NEWLY discovered. severe. suspect prior radiation for head/neck cancer contributed, or it is simply a Barb's, or combination of factors. regardless start replacement - 25mcg of synthroid. repeat TSH 4-6 weeks. (10) Folate deficiency: level of 3 previous admission. replace with PO folate. (11) Severe protein-calorie malnutrition: 2nd to advanced metastatic SCC does NOT want supplemental enteral feedings cont MVI cont folate cont thiamine liquids + pureed diet as tolerated (12) Acute kidney injury: baseline Cr 0.6 1.2 at admission continue IV fluids bmp am (13) Candidiasis of mouth and esophagus: nystatin 5cc q6h (14) DVT prophylaxis: Heparin SQ significant other updated by phone patient very weak - PT/OT evals to ensure safe for home appreciate palliative care consult need to address code status and refine goals of care prognosis very, very poor Admission and Anticipated Discharge Date Admission Date: April 25, 2021 Subjective patient sitting in bed drinking copious amounts of soda during the visit he was difficult to understand at times, and he seemed a little confused here & there he did recall Dr Uriarte seeing him today he said "I want to go home tomorrow -- I can do at home what I am doing here" he admits to being weak, and just shifting in bed is hard because of skin breakdown in his gluteus/sacral region does NOT want to use PEG for any enteral feedings drinking fine, and takes pureed foods at home when I asked him if he plans to try and treat his cancer he seemed uncertain, stating "I'm just going to go home" however, I received a message that radiation oncology plans to perform XRT to his large SCC lung ca on Thursday denies pain in other locations other than sacral region denies abdominal pain no recent falls finally, when asked about his walking, he states he "gets up and walks at home without any problem" Review of Systems Constitutional: + fatigue and + weakness; no fever Respiratory: no dyspnea Cardiovascular: no chest pain Gastrointestinal: no abdominal pain, no nausea and no vomiting Physical Exam Constitutional: + cachectic, + altered mental status and + frail appearing; + not well developed, + not well nourished and no acute distress ENMT: Mouth: + oral mucosal abnormality (Minimal thrush today ) and + dry oral mucous membranes Respiratory: Auscultation: + diminished lung sounds (Right base ) and + wheezes (Right ) Cardiovascular: Rate/Rhythm: regular rate and regular rhythm Heart Sounds: normal S1 and normal S2 Vessels: posterior tibial pulses present and dorsalis pedis pulses present; no JVD Extremities: + edema (About 1+, mainly his feet and ankle) Chest (Breasts): Chest: + mass (Right upper chest) Additional Comments: dilated superficial veins all over chest & abdominal wall Gastrointestinal (Abdomen): Inspection/Auscultation: + caput medusae present Percussion/Palpation: abdomen soft; abdomen nontender, no hepatomegaly and no splenomegaly PEG in place - insertion site clean Musculoskeletal: generalized muscle wasting upper & lower extremities Skin: + pallor Psychiatric: Orientation: alert, oriented to person and oriented to place; + not oriented to time Results & Data Results & Data ([facility]) Vital Signs (Past 12 Hours) Vital Signs Temp Pulse Pulse Pulse Resp BP Pulse Ox 04/26/21 19:30 36.5 C 66 18 152/77 H 92 04/26/21 15:29 36.5 C 63 18 139/79 91 04/26/21 15:01 66 04/26/21 12:18 36.5 C 57 L 16 129/69 95 Laboratory Results Laboratory Results - last 24 hr 04/26/21 04/26/21 04/26/21 08:19 08:19 09:01 WBC Cancelled Cancelled RBC Cancelled Cancelled Hgb Cancelled Cancelled Hct Cancelled Cancelled MCV Cancelled Cancelled MCH Cancelled Cancelled MCHC Cancelled Cancelled RDW Std Deviation Cancelled Cancelled RDW Coeff of Hemalatha Cancelled Cancelled Plt Count Cancelled Cancelled MPV Cancelled Cancelled Immature Gran % (Auto) Cancelled Cancelled Neut % (Auto) Cancelled Cancelled Lymph % (Auto) Cancelled Cancelled [place] % (Auto) Cancelled Cancelled Eos % (Auto) Cancelled Cancelled Baso % (Auto) Cancelled Cancelled Neut # (Auto) Cancelled Cancelled Lymph # (Auto) Cancelled Cancelled [place] # (Auto) Cancelled Cancelled Eos # (Auto) Cancelled Cancelled Baso # (Auto) Cancelled Cancelled Immature Gran # (Auto) Cancelled Cancelled Absolute Nucleated RBC Cancelled Cancelled Nucleated RBC % (auto) Cancelled Cancelled Neutrophils % (Manual) Cancelled Cancelled Band Neutrophils % Cancelled Cancelled Lymphocytes % (Manual) Cancelled Cancelled Prolymphocyte % Cancelled Cancelled Reactive Lymphs % (Man) Cancelled Cancelled Monocytes % (Manual) Cancelled Cancelled Eosinophils % (Manual) Cancelled Cancelled Basophils % (Manual) Cancelled Cancelled Metamyelocytes % (Man) Cancelled Cancelled Myelocytes % (Man) Cancelled Cancelled Promyelocytes % (Man) Cancelled Cancelled Blast Cells % (Manual) Cancelled Cancelled Plasma Cell % (Manual) Cancelled Cancelled Other Cells % Cancelled Cancelled Nucleated RBC % Cancelled Cancelled Neutrophils # (Manual) Cancelled Cancelled Band Neutrophils # Cancelled Cancelled Total Absolute Neuts Cancelled Cancelled Lymphocytes # (Manual) Cancelled Cancelled Prolymphocyte # Cancelled Cancelled Reactive Lymphs # Cancelled Cancelled Total Abs Lymphocytes Cancelled Cancelled Monocytes # (Manual) Cancelled Cancelled Eosinophils # (Manual) Cancelled Cancelled Basophils # (Manual) Cancelled Cancelled Metamyelocytes # (Man) Cancelled Cancelled Myelocytes # (Manual) Cancelled Cancelled Promyelocytes # (Man) Cancelled Cancelled Blast Cells # (Man) Cancelled Cancelled Plasma Cell # (Manual) Cancelled Cancelled Other Cells # Cancelled Cancelled Nucleated RBCs # (Man) Cancelled Cancelled Hypersegmented Neuts Cancelled Cancelled Hyposegmented Neuts Cancelled Cancelled Hypogranular Neuts Cancelled Cancelled Large Granular Lymphs Cancelled Cancelled # Lrg Granular Lymphs Cancelled Cancelled Hairy Cells Cancelled Cancelled Smudge Cells Cancelled Cancelled Toxic Granulation Cancelled Cancelled Toxic Vacuolation Cancelled Cancelled Dohle Bodies Cancelled Cancelled Joey Rods Cancelled Cancelled Platelet Estimate Cancelled Cancelled Hypogranular Platelets Cancelled Cancelled Clumped Platelets Cancelled Cancelled Giant Platelets Cancelled Cancelled Platelet Satelliting Cancelled Cancelled RBC Morphology Cancelled Cancelled Polychromasia Cancelled Cancelled Hypochromasia Cancelled Cancelled Poikilocytosis Cancelled Cancelled Basophilic Stippling Cancelled Cancelled Anisocytosis Cancelled Cancelled Microcytosis Cancelled Cancelled Macrocytosis Cancelled Cancelled Spherocytes Cancelled Cancelled Pappenheimer Bodies Cancelled Cancelled Sickle Cells Cancelled Cancelled Target Cells Cancelled Cancelled Tear Drop Cells Cancelled Cancelled Ovalocytes Cancelled Cancelled Stomatocytes Cancelled Cancelled [place] Bodies Cancelled Cancelled Echinocytes Cancelled Cancelled Acanthocytes (Spur) Cancelled Cancelled Rouleaux Cancelled Cancelled RBC Agglutinates Cancelled Cancelled Schistocytes Cancelled Cancelled RBC Morph Comment Cancelled Cancelled Sezary Cell Cancelled Cancelled Sodium 137 Potassium Chloride 102 Carbon Dioxide 29 Anion Gap 6.0 BUN 33 H Creatinine 1.13 Est Cr Clr Drug Dosing 36.7 Est GFR ( Amer) 77.0 Est GFR (Non-Af Amer) 66.4 BUN/Creatinine Ratio 29.3 H Glucose 98 Calcium 11.0 H Phosphorus 2.4 L Magnesium Total Bilirubin 0.7 AST ALT 11 L Alkaline Phosphatase 114 Total Protein 6.9 Albumin 2.8 L Globulin 4.1 H Albumin/Globulin Ratio 0.7 L Prealbumin 6.0 L Triglycerides 99 Urine Color Urine Appearance Urine pH Ur Specific [place] Urine Protein Urine Glucose (UA) Urine Ketones Urine Blood Urine Nitrite Urine Bilirubin Urine Urobilinogen Ur Leukocyte Esterase 04/26/21 04/26/21 04/26/21 10:26 10:26 12:26 WBC 9.77 RBC 3.29 L Hgb 10.7 L Hct 33.4 L MCV 101.5 H MCH 32.5 MCHC 32.0 RDW Std Deviation 53.7 H RDW Coeff of Hemalatha 14.5 Plt Count 288 MPV 9.8 Immature Gran % (Auto) 0.3 Neut % (Auto) 91.9 Lymph % (Auto) 4.3 [place] % (Auto) 3.3 Eos % (Auto) 0.1 Baso % (Auto) 0.1 Neut # (Auto) 8.98 H Lymph # (Auto) 0.42 L [place] # (Auto) 0.32 Eos # (Auto) 0.01 Baso # (Auto) 0.01 Immature Gran # (Auto) 0.03 H Absolute Nucleated RBC Nucleated RBC % (auto) Neutrophils % (Manual) Band Neutrophils % Lymphocytes % (Manual) Prolymphocyte % Reactive Lymphs % (Man) Monocytes % (Manual) Eosinophils % (Manual) Basophils % (Manual) Metamyelocytes % (Man) Myelocytes % (Man) Promyelocytes % (Man) Blast Cells % (Manual) Plasma Cell % (Manual) Other Cells % Nucleated RBC % Neutrophils # (Manual) Band Neutrophils # Total Absolute Neuts Lymphocytes # (Manual) Prolymphocyte # Reactive Lymphs # Total Abs Lymphocytes Monocytes # (Manual) Eosinophils # (Manual) Basophils # (Manual) Metamyelocytes # (Man) Myelocytes # (Manual) Promyelocytes # (Man) Blast Cells # (Man) Plasma Cell # (Manual) Other Cells # Nucleated RBCs # (Man) Hypersegmented Neuts Hyposegmented Neuts Hypogranular Neuts Large Granular Lymphs # Lrg Granular Lymphs Hairy Cells Smudge Cells Toxic Granulation Toxic Vacuolation Dohle Bodies Joey Rods Platelet Estimate Hypogranular Platelets Clumped Platelets Giant Platelets Platelet Satelliting RBC Morphology Polychromasia Hypochromasia Poikilocytosis Basophilic Stippling Anisocytosis Microcytosis Macrocytosis Spherocytes Pappenheimer Bodies Sickle Cells Target Cells Tear Drop Cells Ovalocytes Stomatocytes [place] Bodies Echinocytes Acanthocytes (Spur) Rouleaux RBC Agglutinates Schistocytes RBC Morph Comment Sezary Cell Sodium Potassium 3.2 L Chloride Carbon Dioxide Anion Gap BUN Creatinine Est Cr Clr Drug Dosing Est GFR ( Amer) Est GFR (Non-Af Amer) BUN/Creatinine Ratio Glucose Calcium Phosphorus Magnesium 2.1 Total Bilirubin AST 20 ALT Alkaline Phosphatase Total Protein Albumin Globulin Albumin/Globulin Ratio Prealbumin Triglycerides Urine Color Yellow Urine Appearance Clear Urine pH 6.5 Ur Specific [place] 1.012 Urine Protein Negative Urine Glucose (UA) Negative Urine Ketones Negative Urine Blood Negative Urine Nitrite Negative Urine Bilirubin Negative Urine Urobilinogen Negative Ur Leukocyte Esterase Negative PG Care Time/CCT Total # of Minutes Spent Total Time Spent with Patient: Total time spent is greater than 50% in coordination of care (as documented) at patient's floor/unit and/or counseling patient: Coding Level of Care Code 09421 Subseq Hosp Care Lvl 3 Diagnoses Hypercalcemia E83.52 Metabolic encephalopathy G93.41 Dehydration E86.0 Anemia D64.9 Anemia type: unspecified type Metastatic squamous cell carcinoma C79.9 PEG tube malfunction K94.23 Nausea & vomiting R11.2 Hypokalemia E87.6 Hypothyroidism E03.9 Folate deficiency E53.8 Severe protein-calorie malnutrition E43 Acute kidney injury N17.9 Candidiasis of mouth and esophagus B37.81; B37.0 DVT prophylaxis Z29.9 (1) Anemia Anemia type: unspecified type Qualified Code(s): D64.9 - Anemia, unspecified
[2021-04-27] MEDS: MoRPHine SULFATE 10 MG/0.5 ML UDP PO PRN ×3 (01:59→20:44)
[2021-04-27] MEDS: LEVOTHYROXINE SODIUM 25 MCG TABLET PO SCH (05:58)
[2021-04-27] MEDS: FOLIC ACID 400 MCG TAB PO SCH (09:34)
[2021-04-27] MEDS: METOPROLOL TARTRATE 25 MG TAB PO SCH (09:34)
[2021-04-27] MEDS: THIAMINE HCL 100 MG in SYRINGE 9 ML IV SCH (09:35)
[2021-04-27] MEDS: MULTI VIT W/MINERALS LIQUID 15 ML UDP PO SCH (09:35)
[2021-04-27] MEDS: DICLOFENAC SOD 1% GEL 100 GM TUBE EXT SCH ×4 (09:36→20:06)
[2021-04-27] MEDS: HEPARIN SOD 5,000 UNIT/0.5 ML VIAL SQ SCH ×2 (09:36→20:06)
[2021-04-27] MEDS: NYSTATIN SUSP 500,000 U/5 ML UDC PO SCH ×4 (09:36→20:07)
[2021-04-27] MEDS: POTASSIUM CHLORIDE 20 MEQ in D5W AND LACTATED RINGERS 1,000 ML IV SCH ×2 (09:36→22:35)
[2021-04-27] MEDS: POTASSIUM CHLORIDE PWD 20 MEQ PACK PO SCH (09:50)
[2021-04-27] MEDS: ONDANSETRON INJ 2 MG/ML 2 ML VIAL IV PRN (10:20)
[2021-04-27 15:09] LABS: BUN Creatinine Ratio 21.2 (10-20); Calcium 10.3 mg/dl (8.5-10.1); Creatinine Clr Calc Pharmacy 38.7 ml/min; Est GFR (African American) 76.2 ml/min; Est GFR (Non-African American) 65.7 ml/min; Potassium 3.1 mmol/L (3.5-5.1)
[2021-04-27] MEDS ORDERED: POTASSIUM CHLORIDE PWD 20 MEQ PACK PO ONE (19:22)
--- NOTE | 2021-04-27 22:16 | Hospitalist Progress Note ---
Date of Service April 27, 2021 Assessment & Plan (1) Hypercalcemia: most certainly due to squamous cell cancer. intact PTH earlier in March was suppressed. I cannot find a PTH-related peptide in the EMR but, if one was checked, likely to be quite elevated. will simply treat. Calcium has been improving. will continue to monitor. continue IVF. likely to be an ongoing issue for the foreseeable future. suspect his rapid decline over the last week may have been the high calcium as it was normal in mid March. (2) Metabolic encephalopathy: likely due to hypercalcemia. cannot rule out other factors. will check CT head - r/o intracranial mets. his significant other confirmed by phone he has been confused at home. if CT head is neg, and if confusion persists, consider MRI brain. Calcium is improving. I don't see evidence of infectious process at this time. (3) Dehydration: 2nd to issues with oral intake, hypercalcemia, etc. resulting MARCI. hydrate with isotonic fluids. repeat BMP am. (4) Anemia: anemia of chronic disease along with Fe def + folate def. received IV iron recently. also on folate supplementation. baseline Hb about 9-10. Hb was quite high at presentation -- this was likely hemoconcentration from severe dehydration. cbc in am. cont folate. consider additional IV iron while here. (5) Metastatic squamous cell carcinoma: With large chest mass invading into the bones and mediastinum, diagnosed with squamous cell carcinoma last admission after FNA showed the SCC - likely metastatic / of head/neck origin (had throat cancer in the past). Received message that Dr Lopez from rad onc to initiate palliative xrt on Thursday whether patient is here or discharged. very poor functional status - uncertain if truly a chemo candidate. CT head to r/o intracranial mets. (6) PEG tube malfunction: 04/11 - gastrostomy tube replaced by Dr Garland. sometime thereafter the tube came out; holbrook placed to maintain the tract. 04/17 - new gastrostomy tube placed again by Dr Garland. patient was confused during the visit and he was unable to give me details if the tube came out at his home. by report he told prior providers it came out at home. he put the tube back in the tract and then taped it in place. regardless he does NOT want enteral feedings. will NOT use the tube for meds or enteral feedings at this time. (7) Nausea & vomiting: resolved now tolerating liquids and some pureed foods (8) Hypokalemia: still low. add KCL to IV fluids. mag level this am normal. repeat BMP am. (9) Hypothyroidism: NEWLY discovered. severe. suspect prior radiation for head/neck cancer contributed, or it is simply a Barb's, or combination of factors. regardless start replacement - 25mcg of synthroid. repeat TSH 4-6 weeks. (10) Folate deficiency: level of 3 previous admission. replace with PO folate. (11) Severe protein-calorie malnutrition: 2nd to advanced metastatic SCC does NOT want supplemental enteral feedings cont MVI cont folate cont thiamine liquids + pureed diet as tolerated (12) Acute kidney injury: baseline Cr 0.6 1.2 at admission continue IV fluids bmp am (13) Candidiasis of mouth and esophagus: nystatin 5cc q6h (14) DVT prophylaxis: Heparin SQ significant other updated by phone patient very weak - PT/OT evals to ensure safe for home appreciate palliative care consult need to address code status and refine goals of care prognosis very, very poor Admission and Anticipated Discharge Date Admission Date: April 25, 2021 Subjective Patient is more awake. However refusing to participate in physical therapy. Review of Systems Review of Systems: All systems reviewed & are unremarkable except as noted in HPI & below Physical Exam Physical Exam: Constitutional: + cachectic, + altered mental status and + frail appearing; + not well developed, + not well nourished and no acute dis tress ENMT: Mouth: + oral mucosal abnormality (Minimal thrush today ) and + dry oral mucous membranes Respiratory: Auscultation: + diminished lung sounds (Right base ) and + wheezes (Right ) Cardiovascular: Rate/Rhythm: regular rate and regular rhythm Heart Sounds: normal S1 and normal S2 Vessels: posterior tibial pulses present and dorsalis pedis pulses present; no JVD Extremities: + edema (About 1+, mainly his feet and ankle) Chest (Breasts): Chest: + mass (Right upper chest) Additional Comments: dilated superficial veins all over chest & abdominal wall Gastrointestinal (Abdomen): Inspection/Auscultation: + caput medusae present Percussion/Palpation: abdomen soft; abdomen nontender, no hepatomegaly and no splenomegaly PEG in place - insertion site clean Musculoskeletal: generalized muscle wasting upper & lower extremities Skin: + pallor Psychiatric: Orientation: alert, oriented to person and oriented to place; + not oriented to time Results & Data Results & Data ([facility]) Vital Signs (Past 12 Hours) Vital Signs Temp Pulse Resp BP Pulse Ox 04/27/21 19:52 36.6 C 71 20 135/83 95 04/27/21 15:40 36.6 C 71 16 153/84 H 93 04/27/21 12:30 36.4 C L 59 L 18 151/85 H 100 PG Care Time/CCT Total # of Minutes Spent Total Time Spent with Patient: Total time spent is greater than 50% in coordination of care (as documented) at patient's floor/unit and/or counseling patient: Coding Level of Care Code 36386 Subseq Hosp Care Lvl 2 Diagnoses Hypercalcemia E83.52 Metabolic encephalopathy G93.41 Dehydration E86.0 Anemia D64.9 Anemia type: unspecified type Metastatic squamous cell carcinoma C79.9 PEG tube malfunction K94.23 Nausea & vomiting R11.2 Hypokalemia E87.6 Hypothyroidism E03.9 Folate deficiency E53.8 Severe protein-calorie malnutrition E43 Acute kidney injury N17.9 Candidiasis of mouth and esophagus B37.81; B37.0 DVT prophylaxis Z29.9 Time Spent (min) 25 (1) Anemia Anemia type: unspecified type Qualified Code(s): D64.9 - Anemia, unspecified
[2021-04-28] MEDS: MoRPHine SULFATE 10 MG/0.5 ML UDP PO PRN ×2 (04:53→19:58)
[2021-04-28] MEDS: LEVOTHYROXINE SODIUM 25 MCG TABLET PO SCH (06:27)
[2021-04-28] MEDS: METOPROLOL TARTRATE 25 MG TAB PO SCH (08:42)
[2021-04-28] MEDS: THIAMINE HCL 100 MG in SYRINGE 9 ML IV SCH (08:42)
[2021-04-28] MEDS: FOLIC ACID 400 MCG TAB PO SCH (08:43)
[2021-04-28] MEDS: DICLOFENAC SOD 1% GEL 100 GM TUBE EXT SCH ×4 (08:43→21:39)
[2021-04-28] MEDS: MULTI VIT W/MINERALS LIQUID 15 ML UDP PO SCH (08:46)
[2021-04-28] MEDS: POTASSIUM CHLORIDE PWD 20 MEQ PACK PO SCH (08:48)
[2021-04-28] MEDS: NYSTATIN SUSP 500,000 U/5 ML UDC PO SCH ×4 (08:48→21:40)
[2021-04-28 09:12] LABS: Hematocrit (blood only) 39.4 % (42-52); Hemoglobin 12.8 g/dL (14.0-18.0); Mean Corpuscular Hemoglobin 32.7 pg (25-34); Mean Corpuscular Hgb Conc 32.5 g/dL (32-36); Mean Corpuscular Volume 100.8 fL (80-100); Platelet Count 227 K/uL (130-400); RDW Coefficient of Variation 14.4 % (11.5-14.5); RDW Standard Deviation 52.7 fL (36.4-46.3); Red Blood Count 3.91 M/uL (4.7-6.1); White Blood Count 11.43 K/uL (4.8-10.8)
[2021-04-28] MEDS: HEPARIN SOD 5,000 UNIT/0.5 ML VIAL SQ SCH ×3 (09:12→21:44)
[2021-04-28 09:39] LABS: Alanine Aminotransferase 9 U/L (12-78); Albumin Level 2.7 gm/dl (3.4-5.0); Alkaline Phosphatase 107 U/L (45-117); BUN Creatinine Ratio 17.2 (10-20); Bilirubin,Total 0.6 mg/dl (0.2-1); Blood Urea Nitrogen 18 mg/dl (7-18); Calcium 10.1 mg/dl (8.5-10.1); Carbon Dioxide 32 mmol/L (21-32); Chloride 103 mmol/L (98-107); Creatinine Clr Calc Pharmacy 41.1 ml/min; Est GFR (African American) 84.1 ml/min; Est GFR (Non-African American) 72.6 ml/min; Glucose 101 mg/dl (70-99); Phosphorus 1.1 mg/dl (2.5-4.9); Sodium 138 mmol/L (136-145); Total Protein 6.6 gm/dl (6.4-8.2)
[2021-04-28] MEDS ORDERED: POTASSIUM PHOS 3 MMOL/1 ML INFUSION IV STA (09:43)
[2021-04-28 10:28] LABS: Potassium 3.4 mmol/L (3.5-5.1)
[2021-04-28] MEDS ORDERED: POTASSIUM PHOSPHATE 24 MMOL in SODIUM CHLORIDE 0.9% 500 ML IV ONE (10:30)
[2021-04-28 10:33] LABS: Bilirubin Direct 0.2 mg/dl (0-0.2); Magnesium 1.9 mg/dl (1.8-2.4)
--- NOTE | 2021-04-28 11:25 | Hospitalist Progress Note ---
Date of Service April 28, 2021 Assessment & Plan (1) Hypercalcemia: most certainly due to squamous cell cancer. intact PTH earlier in March was suppressed. I cannot find a PTH-related peptide in the EMR but, if one was checked, likely to be quite elevated. will simply treat. Calcium has been improving. will continue to monitor. continue IVF. likely to be an ongoing issue for the foreseeable future. suspect his rapid decline over the last week may have been the high calcium as it was normal in mid March. On 04/28, Calcium is now normal at 10.7 (corrected) continue to replenish phosphorus. Patient is now interestd in home hospice. Appears he may be ready for discharge on Thursday. (2) Metabolic encephalopathy: likely due to hypercalcemia. cannot rule out other factors. will check CT head - r/o intracranial mets. his significant other confirmed by phone he has been confused at home. if CT head is neg, and if confusion persists, consider MRI brain. Calcium is improving. I don't see evidence of infectious process at this time. (3) Dehydration: 2nd to issues with oral intake, hypercalcemia, etc. resulting MARCI. hydrate with isotonic fluids. Improving. Will likely deteriorate once he returns home. (4) Anemia: anemia of chronic disease along with Fe def + folate def. received IV iron recently. also on folate supplementation. baseline Hb about 9-10. Hb was quite high at presentation -- this was likely hemoconcentration from severe dehydration. cbc in am. cont folate. consider additional IV iron while here. (5) Metastatic squamous cell carcinoma: With large chest mass invading into the bones and mediastinum, diagnosed with squamous cell carcinoma last admission after FNA showed the SCC - likely metastatic / of head/neck origin (had throat cancer in the past). Received message that Dr Lopez from rad onc to initiate palliative xrt on Thursday whether patient is here or discharged. very poor functional status - uncertain if truly a chemo candidate. CT head to r/o intracranial mets. (6) PEG tube malfunction: 04/11 - gastrostomy tube replaced by Dr Garland. sometime thereafter the tube came out; holbrook placed to maintain the tract. 04/17 - new gastrostomy tube placed again by Dr Garland. patient was confused during the visit and he was unable to give me details if the tube came out at his home. by report he told prior providers it came out at home. he put the tube back in the tract and then taped it in place. regardless he does NOT want enteral feedings. will NOT use the tube for meds or enteral feedings at this time. (7) Nausea & vomiting: resolved now tolerating liquids and some pureed foods (8) Hypokalemia: still low. add KCL to IV fluids. mag level this am normal. repeat BMP am. (9) Hypothyroidism: NEWLY discovered. severe. suspect prior radiation for head/neck cancer contributed, or it is simply a Barb's, or combination of factors. regardless start replacement - 25mcg of synthroid. repeat TSH 4-6 weeks. (10) Folate deficiency: level of 3 previous admission. replace with PO folate. (11) Severe protein-calorie malnutrition: 2nd to advanced metastatic SCC does NOT want supplemental enteral feedings cont MVI cont folate cont thiamine liquids + pureed diet as tolerated (12) Acute kidney injury: baseline Cr 0.6 1.2 at admission continue IV fluids bmp am (13) Candidiasis of mouth and esophagus: nystatin 5cc q6h (14) DVT prophylaxis: Heparin SQ significant other updated by phone patient very weak - PT/OT evals to ensure safe for home appreciate palliative care consult need to address code status and refine goals of care prognosis very, very poor Will need to touch base with palliative care. Had discussion with Samara that his prgnosis is very poor and given that he is not allowing supplemental feeds through the PEG tube, he will likey continue to decompensate once he returns home. Patient is agreeable to home hospice Admission and Anticipated Discharge Date Admission Date: April 25, 2021 Subjective Patient is more awake. He is unsure if he wants to go home on hospice. However, he reports he does not want to continue with artificial feeding. He currently has no new complaints. During my visit in the afternoon, patient is now interested in hospice. Review of Systems Review of Systems: All systems reviewed & are unremarkable except as noted in HPI & below Physical Exam Physical Exam: Constitutional: + altered mental status and + frail appearing; + not well developed, + not well nourished and no acute distress ENMT: Mouth: + oral mucosal abnormality (Minimal thrush today ) Respiratory: Auscultation: + diminished lung sounds (Right base ) and + wheezes (Right ) Cardiovascular: Rate/Rhythm: regular rate and regular rhythm Heart Sounds: normal S1 and normal S2 Vessels: posterior tibial pulses present and dorsalis pedis pulses present; no JVD Extremities: + edema (About 1+, mainly his feet and ankle) Chest (Breasts): Chest: + mass (Right upper chest) Additional Comments: dilated superficial veins all over chest & abdominal wall Gastrointestinal (Abdomen): Inspection/Auscultation: + caput medusae present Percussion/Palpation: abdomen soft; abdomen nontender, no hepatomegaly and no splenomegaly PEG in place - insertion site clean Musculoskeletal: generalized muscle wasting upper & lower extremities Skin: + pallor Psychiatric: Orientation: alert, oriented to person and oriented to place; + not oriented to time Results & Data Results & Data ([facility]) Vital Signs (Past 12 Hours) Vital Signs Temp Pulse Pulse Resp BP Pulse Ox 04/28/21 07:22 36.3 C L 69 16 167/83 H 99 04/28/21 07:19 76 04/28/21 03:11 36.7 C 66 18 152/76 H 98 PG Care Time/CCT Total # of Minutes Spent Total Time Spent with Patient: Total time spent is greater than 50% in coordination of care (as documented) at patient's floor/unit and/or counseling patient: Coding Level of Care Code 68807 Subseq Hosp Care Lvl 3 Diagnoses Hypercalcemia E83.52 Metabolic encephalopathy G93.41 Dehydration E86.0 Anemia D64.9 Anemia type: unspecified type Metastatic squamous cell carcinoma C79.9 PEG tube malfunction K94.23 Nausea & vomiting R11.2 Hypokalemia E87.6 Hypothyroidism E03.9 Folate deficiency E53.8 Severe protein-calorie malnutrition E43 Acute kidney injury N17.9 Candidiasis of mouth and esophagus B37.81; B37.0 DVT prophylaxis Z29.9 Time Spent (min) 40 (1) Anemia Anemia type: unspecified type Qualified Code(s): D64.9 - Anemia, unspecified
[2021-04-28] MEDS: POTASSIUM CHLORIDE 20 MEQ in D5W AND LACTATED RINGERS 1,000 ML IV SCH (11:32)
[2021-04-29] MEDS: MoRPHine SULFATE 10 MG/0.5 ML UDP PO PRN ×4 (00:08→12:49)
[2021-04-29] MEDS: POTASSIUM CHLORIDE 20 MEQ in D5W AND LACTATED RINGERS 1,000 ML IV SCH ×2 (00:10→08:59)
[2021-04-29] MEDS: LEVOTHYROXINE SODIUM 25 MCG TABLET PO SCH (05:57)
[2021-04-29 08:16] LABS: BUN Creatinine Ratio 15.8 (10-20); Calcium 9.1 mg/dl (8.5-10.1); Creatinine Clr Calc Pharmacy 53.1 ml/min; Est GFR (African American) 103.8 ml/min; Est GFR (Non-African American) 89.5 ml/min; Magnesium 1.7 mg/dl (1.8-2.4); Potassium 3.7 mmol/L (3.5-5.1)
[2021-04-29 08:22] LABS: Phosphorus 1.8 mg/dl (2.5-4.9)
[2021-04-29] MEDS: HEPARIN SOD 5,000 UNIT/0.5 ML VIAL SQ SCH (08:53)
[2021-04-29] MEDS: FOLIC ACID 400 MCG TAB PO SCH ×2 (08:53→12:44)
[2021-04-29] MEDS: DICLOFENAC SOD 1% GEL 100 GM TUBE EXT SCH ×2 (08:53→12:44)
[2021-04-29] MEDS: METOPROLOL TARTRATE 25 MG TAB PO SCH ×2 (08:54→12:44)
[2021-04-29] MEDS: MULTI VIT W/MINERALS LIQUID 15 ML UDP PO SCH ×2 (08:55→12:44)
[2021-04-29] MEDS: NYSTATIN SUSP 500,000 U/5 ML UDC PO SCH ×2 (08:55→12:45)
[2021-04-29] MEDS: POTASSIUM CHLORIDE PWD 20 MEQ PACK PO SCH (08:56)
[2021-04-29] MEDS: THIAMINE HCL 100 MG in SYRINGE 9 ML IV SCH (08:57)
--- NOTE | 2021-04-29 11:34 | Discharge Summary ---
Date of Service April 29, 2021 Admission HPI Per Admitting Provider This patient is a 70-year-old male with recently diagnosed metastatic squamous cell carcinoma with a large chest wall tumor resulting in erosion of the manubrium, undersurface of the proximal right Clavicle and right first and second ribs extending into the right upper lobe and mediastinum and also with multiple bilateral lung masses, severe protein calorie malnutrition,, previous throat/tongue cancer, PEG tube in place, hypertension, anemia, hypercalcemia who presents to the ER with significant nausea and inability to tolerate much p.o. He has a PEG tube in place that was just replaced by general surgery but had not had home care set up for tube feeds as he previously was tolerating p.o. pured diet at the time of discharge from recent hospitalization on 04/12. He continues to have significant pain at the site of the tumor in his chest for which she has been taking liquid morphine which is helpful. He was seen by palliative medicine today as an outpatient and referred to the ER due to suspected severe d ehydration. He has had some lightheadedness but no syncope. He reports he has been eating and drinking a little bit but not enough and continues to repeat himself saying "I know, this is on me." Also, he reports after the surgeon replaced his feeding tube on 04/17, it came out again and he put it back in and taped it to his skin. The surgeon was not able to place his a port at that time due to resistance in the left internal jugular vein. The procedure was aborted. In the ER, he was found to have stable vital signs with mild hypertension. He had a mild leukocytosis, seem to be significantly hemoconcentrated with a hemoglobin of 13.3 up from 8.9 just 2 weeks ago. He was also noted to be hypokalemic, with elevated BUN and creatinine to 38 and 1.28, and elevated lactate of 3.9, and a calcium of 12.5. LFTs were only significant for a mild increase in alkaline phosphatase. Troponin was negative, and his TSH was significantly elevated at 50.5. He will be admitted for significant dehydration, hypercalcemia, hypothyroidism, and ongoing severe protein calorie malnutrition failure to thrive in the setting of metastatic squamous cell carcinoma. Principal Diagnosis Metastatic squamous cell cancer Discharge Exam Constitutional well developed, + thin, + cachectic and comfortable; no acute distress Neck trachea midline, no thyromegaly Respiratory normal respiratory effort, lungs clear to auscultation Cardiovascular RRR, no murmur, no edema Chest (Breasts) Chest: + mass Gastrointestinal (Abdomen) normal bowel sounds, soft, nontender, no hepatosplenomegaly Musculoskeletal Head/Neck/Chest: normocephalic, head atraumatic and neck supple Extremities: + abnormal strength and + muscle atrophy; no cyanosis, no clubbing and no petechiae Skin + wound (sacral wound) Neurologic patellar DTR's 2+ bilat, sensation intact and PERRL, EOMI, accommodation nl, no face palsy, no dysarthria Psychiatric Orientation: alert and oriented x 3 Affect: + flat affect Discharge Data Allergies Allergy/AdvReac Type Severity Reaction Status Date / Time No Known Drug Allergies Allergy Verified 04/25/21 12:52 Consultations 04/25/21 18:02 ED Decision to Admit Stat 04/25/21 21:10 Consult Oncology Routine Consult Palliative Care Routine Ordered Studies 04/26/21 21:08 CT head/brain wo con Routine Hospital Course (1) Metastatic squamous cell carcinoma: With large chest mass invading into the bones and mediastinum, diagnosed with squamous cell carcinoma last admission after FNA showed the SCC - likely metastatic / of head/neck origin (had throat cancer in the past). very poor functional status patient knows his prognosis is extremely poor, short life expectancy he refuses further PEG tube for nutrition he chooses to go home on hospice provided prescriptions for Roxanol he has hospital bed and oxygen PRN set up with [facility] home health appreciate consultation from Dr. Uriarte with palliative care (2) Hypercalcemia: most certainly due to squamous cell cancer. intact PTH earlier in March was suppressed. calcium improved over the short term with IV fluids but will certainly go up again will discharge to home on hospice with [facility] home health he has hospital bed and oxygen and family can help provide care (3) Metabolic encephalopathy: likely due to hypercalcemia. resolved, he is mentating clearly, wants to go home on hospice and remain with family no changes on CT head no evidence of infectious process at this time. (4) Dehydration: 2nd to issues with oral intake, hypercalcemia, etc. resulting MARCI. hydrate with isotonic fluids. Cr back down and electrolytes better for now Will likely deteriorate once he returns home. (5) Anemia: anemia of chronic disease along with Fe def + folate def. received IV iron recently. also on folate supplementation. baseline Hb about 9-10. Hb was quite high at presentation -- this was likely hemoconcentration from severe dehydration. no need to follow further (6) PEG tube malfunction: 04/11 - gastrostomy tube replaced by Dr Garland. sometime thereafter the tube came out; holbrook placed to maintain the tract. 04/17 - new gastrostomy tube placed again by Dr Garland. regardless he does NOT want enteral feedings. will NOT use the tube for meds or enteral feedings at this time. (7) Nausea & vomiting: resolved now tolerating liquids and some pureed foods (8) Hypokalemia: still low. add KCL to IV fluids. mag level this am normal. repeat BMP am. (9) Hypothyroidism: NEWLY discovered. severe. suspect prior radiation for head/neck cancer contributed, or it is simply a Barb's, or combination of factors. regardless start replacement - 25mcg of synthroid. repeat TSH 4-6 weeks. (10) Folate deficiency: level of 3 previous admission. replace with PO folate. (11) Severe protein-calorie malnutrition: 2nd to advanced metastatic SCC does NOT want supplemental enteral feedings cont MVI cont folate cont thiamine liquids + pureed diet as tolerated (12) Acute kidney injury: baseline Cr 0.6 1.2 at admission continue IV fluids bmp am (13) Candidiasis of mouth and esophagus: nystatin 5cc q6h provide script for 10 more days on discharge to help with pain, help him eat/drink what he can Total Time Total Time Spent Total Time Spent (In Minutes): 32 Total Time Includes: Examination of the Patient, Discharge Planning, Medication Reconciliation and Communication With Other Providers (Dr. Uriarte) Discharge Plan Discharge Items Patient Disposition: Hospice - Home Reason For Visit: Dehydration, severe malnutrition Discharge Diagnosis: Metastatic squamous cell cancer Dehydration, malnourished, electrolyte abnormalities Condition on Discharge: Fair Goals: keep comfortable, keep at home on hospice Activity: Resume your previous activity Weightbearing: Full weightbearing Non-emergency contact: Primary Care Provider Call non-emergency contact if: you have any medication questions, your symptoms worsen and your pain is not controlled Follow-up/Referrals: Crystal Uriarte MD [Physician] - () PCP,NO [Primary Care Provider] - Diet: Regular Diet Comment: eat/drink what you can Addtl Attending Provider Instructions: Medications: - MORPHINE SULFATE: renewed this prescription, it is for pain control associated with cancer, use as instructed, if pain not controlled can increase the dose, discuss with hospice - NYSTATIN: use for 10 more days, four times a day, intended to treat oral thrush - SYNTHROID: 25mcg daily for low thyroid function - MULTIVITAMIN you can stop taking METOPROLOL Will go home with home hospice, focus on comfort and staying at home Eat/drink whatever you can if you have questions/issues, [facility] home hospice to start tomorrow and Dr. Uriarte with palliative care can be a resource as well Pending Studies at Discharge: No Stand-Alone Forms: [facility] Medications and DC Order Prescriptions: New nystatin 100,000 unit/mL Suspension 5 ml PO QID 10 Days Qty: 200 RF: 0 levothyroxine [Synthroid] 25 mcg Tablet 25 mcg PO DAILYBB 30 Days Qty: 30 RF: 1 [id number] gluconate [Centrum] 9 mg iron/15 mL Liquid 15 ml PO QAM 30 Days Qty: 450 RF: 0 Continued folic acid 400 mcg tablet 400 mcg PO DAILY Qty: 30 RF: 0 diclofenac sodium 1 % gel 2 g topical QID Qty: 100 RF: 0 morphine concentrate 100 mg/5 mL (20 mg/mL) solution 5 mg PO Q4H PRN (Reason: pain) Qty: 120 RF: 0 Discontinued metoprolol tartrate 25 mg Tablet 12.5 mg PO QAM 30 Days Qty: 15 RF: 1 Discharge Orders: Discharge Order (Routine); Ordered 04/29/21 Ordered By: Dusty Dietz Admission Data Admit Date/Time: 04/25/21 19:04 Attending Provider: Dusty Dietz Admit Provider: Magalis Johnson Primary Care Provider: PCP,NO Other Providers: Magalis Johnson ; Dylan Randhawa V. ; Crystal Uriarte ; [facility],Home Healthcare Other Interventions: Discharge Summary Assessment (RN) Last Done: 04/29/21 12:54 Coding Level of Care Code D/C Day Management >30 mins Diagnoses Metastatic squamous cell carcinoma C79.9 Hypercalcemia E83.52 Metabolic encephalopathy G93.41 Dehydration E86.0 Anemia D64.9 Anemia type: unspecified type PEG tube malfunction K94.23 Nausea & vomiting R11.2 Hypokalemia E87.6 Hypothyroidism E03.9 Folate deficiency E53.8 Severe protein-calorie malnutrition E43 Acute kidney injury N17.9 Candidiasis of mouth and esophagus B37.81; B37.0
--- NOTE | 2021-04-29 12:41 | Palliative Care Progress Note ---
Date of Service April 29, 2021 Assessment & Plan (1) Palliative care encounter: Yuval has decided on hospice care with plan for discharge to home today. He has recognized for some time that his cancer was terminal but struggled with not feeling like he gave up. He understands that he is not a candidate for further cancer treatment. He continues to say that he will eat more at home. This may be true, however, we discussed that its ok to eat for comfort at home and he doesn't have to keep up calories. This has been a difficult thing for Samara to accept and she has said that she does not want him to "starve to ". We have discussed natural progression of his cancer and decreased appetite. I think that ongoing hospice support will be very important to help them adjust to new expectations. It will also be helpful for wound care and possible topical treatments for his wound pain. I did tell Yuval that it is ok to use the morphine for buttock pain just as it is for his chest wall pain. I have tried to call Samara twice today with no answer. He has deferred code status discussion to her. This is something that can be followed up with hospice at home as he does not have to be DNR to receive hospice care. (2) Chest wall mass: (3) Severe protein-calorie malnutrition: Admission and Anticipated Discharge Date Admission Date: April 25, 2021 Subjective Still complaining of pain from sacral decubitus ulcer. He has some pain with chest wall mass but is bothered more by ulcer. He has good relief with prn morphine with four doses in last 24 hours. Review of Systems Review of Systems: [place] Symptom Assessment Scale Pain 1/3 Dyspnea 0/3 Anxiety 0/3 Nausea 0/3 Drowsiness 0/3 Anorexia 3/3 Palliative Performance Score 40% Physical Exam Constitutional: + cachectic; no acute distress ENMT: Mouth: + dry oral mucous membranes Respiratory: normal respiratory effort and + labored breathing Gastrointestinal (Abdomen): Percussion/Palpation: abdomen nontender Musculoskeletal: Extremities: + muscle atrophy Neurologic: awake; not confused Results & Data ([facility]) Vital Signs (Past 12 Hours) Vital Signs Temp Pulse Pulse Resp BP Pulse Ox 04/29/21 11:28 97.9 F 66 18 154/8 H 96 04/29/21 07:46 98.1 F 63 18 121/73 96 04/29/21 07:34 61 07/05/21 02:00 98.1 F 63 18 141/80 H 95 04/29/21 00:45 64 PG Care Time/CCT Total # of Minutes Spent Total Time Spent with Patient: Total time spent is greater than 50% in coordination of care (as documented) at patient's floor/unit and/or counseling patient: total time spent 35 minutes with more than 50% of time spent on goals of care, symptom management, hospice Coding Level of Care Code 86838 Subseq Hosp Care Lvl 3 Diagnoses Palliative care encounter Z51.5 Chest wall mass R22.2 Severe protein-calorie malnutrition E43
== END 2021-04-29 15:15 | disposition hospice, home (50) | DRG 542 ==
LOC: ED 14:13 → SUATTDRO 19:04 → 2N 19:04